=== PATIENT | male | born 1935 | race Caucasian/White ===

== ENCOUNTER 2018-02-28 16:18 | Emergency (ER) | payer OTHER ==
--- OUTSIDE RECORDS SUMMARY | 2018-02-28 16:20 | XMS REPORT ---
:1935 [facility] Address [address] [place] [address] [address] [place] [address] Care Team Providers Name Role Phone MICKI NGUYEN Primary Care Provider Unavailable MICKI NGUYEN Unavailable Unavailable Problems This patient has no known problems. Allergies, Adverse Reactions, Alerts This patient has no known allergies or adverse reactions. Medications This patient has no known medications. Encounters Start End Encounter Admission Attending Care Care Encounter Date/Time Date/Time Type Type Clinicians Facility Department ID 2018-02-14 2018-02-14 Outpatient C WENDY [facility] [id number] 19:50:00 19:50:00 MICKI Results Test Description Test Time Test Comments Text Results Atomic Results Result Comments Lipid Profile 2018-02-14 21:41:00 Test Item Value Reference Range Comments Cholesterol (test code=CHOL) 115 mg/dL 0-200 Triglycerides (test code=TRIG) 173 mg/dL 9-200 HDL (test code=HDL) 28 mg/dL 40-60 Chol/HDL (test code=CHOLPHDL) 4.1 Ratio 0.0-5.0 LDL, Calculated (test 52 0-130 (NOTE)RISK OF HEART DISEASEPublished code=LDLC) by Irish Heart AssociationAnalyte Optimal Boderline Increased RiskCHOL <200 200-239 >240TRIG <150 150-199 >200HDL Male: >60 <40HDL Female: >60 <50LDL <100 130-159 >160LDL NEAR OPTIMAL IS 100-129 VLDL (test code=VLDL) 35 mg/dL 5-40 LDL/HDL (test code=LDLPHDL) 2
--- NOTE | 2018-02-28 17:18 | RAD REPORT ---
EXAM DESCRIPTION: CT - Head C Spine Mpr Wo Con - 02/28/2018 5:03 pm CLINICAL HISTORY: Head and neck injury status post fall. Head and neck pain COMPARISON: 2013 TECHNIQUE: Computed axial tomography of the head and cervical spine was obtained. Sagittal and coronal reconstruction was performed. All CT scans are performed using dose optimization technique as appropriate and may include automated exposure control or mA/KV adjustment according to patient size. FINDINGS: An intracranial bleed is not seen. Cerebral atrophy is present. The ventricles are normal in caliber. An extra-axial fluid collection is not noted.Fluid within the visualized sinuses and mast oids is not seen A cervical fracture is not visualized. No dislocation is noted. An 8 millimeter lucency within the cl ivus is unchanged and likely is benign IMPRESSION: No acute intracranial abnormality is seen. A cervical fracture is not visualized. If the patient continues to have symptoms to suggest intracra nial /spinal cord pathology then MRI would be recommended
--- NOTE | 2018-02-28 17:21 | RAD REPORT ---
[facility]12 [facility] CLINICAL HISTORY: Chest pain COMPARISON: January 2018 FINDINGS: The lungs appear clear of acute infiltrate. The heart is mildly enlarged. Pacemaker lead is in place. A right humeral inter dislocation is present
--- NOTE | 2018-02-28 17:23 | RAD REPORT ---
EXAM DESCRIPTION: RAD - Pelvis - 02/28/2018 5:11 pm CLINICAL HISTORY: Pelvic pain status post injury FINDINGS: No fracture or dislocation is seen. The bones are osteoporotic. Left hip arthroplasty has been performed. The visualized femoral prosthes is is in good position. If the patient continues to have symptoms to suggest an occult fracture then CT would be recommended
[2018-02-28 17:25] LABS: Absolute Monocytes 0.6 K/uL (0.1-1.3); Absolute Neutrophil 3.9 K/uL (1.8-8.0); Basophils % 0.3 % (0-1.3); Eosinophils % 0.5 % (0-4.4); Hematocrit 28.5 % (39.6-49.0); Lymphocytes % 17.4 % (15.3-44.8); MCH 31.1 pg (27.0-35.0); MCV 93.5 fL (80-100); MPV 8.4 fL (7.6-11.3); Monocytes % 11.3 % (3.3-12.3); RBC Red Blood Cell Count 3.05 M/uL (4.33-5.43)
--- NOTE | 2018-02-28 17:29 | RAD REPORT ---
EXAM DESCRIPTION: RAD - Shoulder Right 2 View - 02/28/2018 5:21 pm CLINICAL HISTORY: Right shoulder pain status post fall FINDINGS: Anterior dislocation involves the right humeral head. No fracture is visualized
[2018-02-28 17:38] LABS: Protime INR 0.9
[2018-02-28 17:46] LABS: Bilirubin Direct 0.1 mg/dL (0-0.2); Potassium 4.4 mEq/L (3.6-5.0)
[2018-02-28] MEDS ORDERED: PROPOFOL 200 MG/20 ML VIAL IV ONE (17:52)
[2018-02-28 18:19] LABS: CKMB Creatine Kinase MB 2.8 ng/ml (0.3-4.0)
[2018-02-28 18:28] LABS: Albumin 3.2 g/dL (3.2-5.5); Bilirubin Total 0.5 mg/dL (0.3-1.2); Protein, Total 6.5 g/dL (6.0-8.3)
--- NOTE | 2018-02-28 18:36 | EDPHYS ---
Physician Documentation [facility] Name: Javier Ahuja Age: 82 yrs Sex: Male : 1935 Arrival Date: 02/28/2018 Time: 16:19 Bed 4 Private MD: ED Physician Mahesh Moss HPI: 02/28 17:15 This 82 yrs old Male presents to ER via EMS with complaints of Fall Injury, wa Shoulder Pain. 17:15 Details of fall: The patient fell from an upright position, while walking. Onset: The wa symptoms/episode began/occurred just prior to arrival. Associated injuries: The patient sustained fall. Severity of symptoms: At their worst the symptoms were moderate, in the emergency department the symptoms are unchanged. The patient has not experienced similar symptoms in the past. The patient has not recently seen a physician. Historical: - Allergies: 16:44 PENICILLINS; ph 16:44 Sulfa (Sulfonamide Antibiotics); ph 16:44 Tramadol HCl; ph - Home Meds: 16:44 midodrine 5 mg oral tab 1 tabs 3 times per day [Active]; pantoprazole 40 mg oral TbEC 1 ph tab 2 times per day [Active]; lovastatin 40 mg Oral tab 1 tab once daily [Active]; Plavix 75 mg Oral tab 1 tab once daily [Active]; losartan 100 mg oral tab 1 tab once daily [Active]; nitroglycerin 0.4 mg SL subl 1 tab every 5 minutes [Active]; metoprolol tartrate 50 mg Oral tab 1 tab 2 times per day [Active]; isosorbide mononitrate 30 mg Oral Tb24 1 tab once daily [Active]; aspirin 81 mg Oral TbEC 1 tab once daily [Active]; Vitamin C 1,000 mg Oral tab [Active]; B-12 DOTS oral 1000 mcg oral [Active]; docusate sodium 100 mg Oral cap [Active]; Fusion Plus 130 mg iron -1,250 mcg oral cap [Active]; - PMHx: 16:44 COPD; Hypertension; Myocardial infarction; Orthostatic Hypotension; ph - PSHx: 16: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 - Social history:: Patient/guardian denies using alcohol, street drugs, IV drugs, Smoking status: Patient/guardian denies using tobacco. - Family history:: not pertinent. - Hospitalizations: : No recent hospitalization is reported. ROS: 17:17 Constitutional: Negative for fever, chills, and weight loss, Eyes: Negative for injury, wa pain, redness, and discharge, ENT: Negative for injury, pain, and discharge, Neck: Negative for injury, pain, and swelling, Cardiovascular: Negative for chest pain, palpitations, and edema, Respiratory: Negative for shortness of breath, cough, wheezing, and pleuritic chest pain, Abdomen/GI: Negative for abdominal pain, nausea, vomiting, diarrhea, and constipation, Back: Negative for injury and pain, : Negative for injury, bleeding, discharge, and swelling, Neuro: Negative for headache, weakness, numbness, tingling, and seizure, Psych: Negative for depression, anxiety, suicide ideation, homicidal ideation, and hallucinations. 17:17 MS/extremity: Positive for deformity, of the Right shoulder. 17:17 Skin: Positive for laceration(s), of the right roman catholic. Exam: 17:19 Constitutional: This is a well developed, well nourished patient who is awake, alert, wa and in no acute distress. Eyes: Pupils equal round and reactive to light, extra-ocular motions intact. Lids and lashes normal. Conjunctiva and sclera are non-icteric and not injected. Cornea within normal limits. Periorbital areas with no swelling, redness, or edema. ENT: Nares patent. No nasal discharge, no septal abnormalities noted. Tympanic membranes are normal and external auditory canals are clear. Oropharynx with no redness, swelling, or masses, exudates, or evidence of obstruction, uvula midline. Mucous membranes moist. Neck: Trachea midline, no thyromegaly or masses palpated, and no cervical lymphadenopathy. Supple, full range of motion without nuchal rigidity, or vertebral point tenderness. No Meningismus. Cardiovascular: Regular rate and rhythm with a normal S1 and S2. No gallops, murmurs, or rubs. Normal PMI, no JVD. No pulse deficits. Respiratory: Lungs have equal breath sounds bilaterally, clear to auscultation and percussion. No rales, rhonchi or wheezes noted. No increased work of breathing, no retractions or nasal flaring. Abdomen/GI: Soft, non-tender, with normal bowel sounds. No distension or tympany. No guarding or rebound. No evidence of tenderness throughout. Back: No spinal tenderness. No costovertebral tenderness. Full range of motion. Neuro: Awake and alert, GCS 15, oriented to person, place, time, and situation. Cranial nerves II-XII grossly intact. Motor strength 5/5 in all extremities. Sensory grossly intact. Cerebellar exam normal. Normal gait. 17:19 Head/face: Noted is a laceration(s), that is superficial, 0.2 cm(s), of the right roman catholic. 17:19 Musculoskeletal/extremity: Extremities: grossly normal except: noted R shoulder deformity consistent with anterior dislocation. Vital Signs: 16:26 BP 187 / 92; Pulse 73; Resp 18; Temp 98.1; Pulse Ox 95% on R/A; ph 17:45 BP 173 / 80; Pulse 72; Resp 16; Pulse Ox 99% on R/A; ph 18:11 BP 134 / 70; Pulse 69; Resp 20; Pulse Ox 100% on 100% Non-rebreather mask; ph 19:10 BP 150 / 86; Pulse 76; Resp 18; Temp 97.8; Pulse Ox 99% on R/A; ph 19:37 BP 161 / 90; Pulse 85; Resp 20; Pulse Ox 95% on R/A; tl2 [place] Coma Score: 16:26 Eye Response: spontaneous(4). Verbal Response: oriented(5). Motor Response: obeys ph commands(6). Total: 15. 17:45 Eye Response: spontaneous(4). Verbal Response: oriented(5). Motor Response: obeys ph commands(6). Total: 15. 18:11 Eye Response: spontaneous(4). Verbal Response: oriented(5). Motor Response: obeys ph commands(6). Total: 15. 19:10 Eye Response: spontaneous(4). Verbal Response: oriented(5). Motor Response: obeys ph commands(6). Total: 15. 19:37 Eye Response: spontaneous(4). Verbal Response: oriented(5). Motor Response: obeys tl2 commands(6). Total: 15. Trauma Score (Adult): 16:26 Eye Response: spontaneous(1); Verbal Response: oriented(1); Motor Response: obeys ph commands(2); Systolic BP: > 89 mm Hg(4); Respiratory Rate: 10 to 29 per min(4); [place] Score: 15; Trauma Score: 12 17:45 Eye Response: spontaneous(1); Verbal Response: oriented(1); Motor Response: obeys ph commands(2); Systolic BP: > 89 mm Hg(4); Respiratory Rate: 10 to 29 per min(4); [place] Score: 15; Trauma Score: 12 18:11 Eye Response: spontaneous(1); Verbal Response: oriented(1); Motor Response: obeys ph commands(2); Systolic BP: > 89 mm Hg(4); Respiratory Rate: 10 to 29 per min(4); [place] Score: 15; Trauma Score: 12 19:10 Eye Response: spontaneous(1); Verbal Response: oriented(1); Motor Response: obeys ph commands(2); Systolic BP: > 89 mm Hg(4); Respiratory Rate: 10 to 29 per min(4); [place] Score: 15; Trauma Score: 12 19:37 Eye Response: spontaneous(1); Verbal Response: oriented(1); Motor Response: obeys tl2 commands(2); Systolic BP: > 89 mm Hg(4); Respiratory Rate: 10 to 29 per min(4); [place] Score: 15; Trauma Score: 12 Procedures: 18:13 Reduction: of the right shoulder, using traction, traction-counter traction, wa Immobilized with sling, Patient tolerated well. Post reduction film - reveals normal alignment. Moderate sedation: Pre-procedure assessment: the patient has been NPO 4 hour(s) prior to arrival, ASA physical classification: III - organic disease with definite functional impairment, Airway assessment: able to hyperextend neck, Mallampati classification of tongue size: II - faucial pillars and soft palate can be visualized, but uvula is masked by the base of the tongue, Monitoring during procedure: academic support center director, continuous pulse oximetry, nurse at bedside at all times, high flow via NBM for 10 minutes prior to procedure, Medications employed: propofol bolus, Post-procedure assessment: the patient is moderately sedated, Respiratory status: even and unlabored, a reversal agent was not used. MDM: 16:29 Patient medically screened. wa 18:28 Differential diagnosis: obvious R shoulder dislocation. r/o acute ICH. r/o c-spine fx. wa . Data reviewed: vital signs, nurses notes, lab test result(s), EKG, radiologic studies. Test interpretation: by ED physician or midlevel provider: EKG: HR 69. LAD. incomplete RBBB. . 18:32 Test interpretation: by ED physician or midlevel provider: labs noted for BUN 30. wa elevated BNP 564. anemia 9.5/28.5. 18:32 Test interpretation: by ED physician or midlevel provider: pelvic xray: no fx. CXR: no wa acute process. head and c-spine: no acute process. 18:33 Test interpretation: by ED physician or midlevel provider: R shoulder post-reduction: oh adequate reduction. Response to treatment: the patient's symptoms have markedly improved after treatment. 02/28 16:35 Order name: Basic Metabolic Panel; Complete Time: 18:30 02/28 16:35 Order name: CBC with Diff; Complete Time: 17:36 02/28 16:36 Order name: BNP; Complete Time: 18:31 02/28 16:36 Order name: CPK; Complete Time: 18:31 02/28 16:36 Order name: LFT's; Complete Time: 18:31 02/28 16:36 Order name: Magnesium; Complete Time: 18:31 02/28 16:35 Order name: XRAY Chest (1 view); Complete Time: 17:36 02/28 16:36 Order name: PT-INR; Complete Time: 18:31 02/28 16:36 Order name: Troponin (emerg Dept Use Only); Complete Time: 18:31 02/28 17:14 Order name: Amylase, Serum; Complete Time: 18:31 02/28 17:14 Order name: Ckmb; Complete Time: 18:31 02/28 17:14 Order name: Lipase; Complete Time: 18:31 02/28 17:31 Order name: PTT, Activated Partial Thromb; Complete Time: 18:30 EDMS 02/28 16:35 Order name: XRAY Pelvis; Complete Time: 17:36 02/28 16:35 Order name: CT Head C Spine; Complete Time: 17:36 02/28 16:35 Order name: Labs collected and sent; Complete Time: 17:28 02/28 16:35 Order name: Urine Dipstick-Ancillary (obtain specimen); Complete Time: 17:02/28 16:36 Order name: EKG; Complete Time: 16:37 02/28 16:36 Order name: Cardiac monitoring; Complete Time: 17:02/28 16:36 Order name: EKG - Nurse/Tech; Complete Time: 19:29 02/28 16:36 Order name: IV Saline Lock; Complete Time: 17:02/28 16:36 Order name: O2 Per Protocol; Complete Time: 17:02/28 16:36 Order name: O2 Sat Monitoring; Complete Time: 17:02/28 17:14 Order name: Shoulder Right (2 View) XRAY; Complete Time: 17:36 02/28 17:14 Order name: NPO; Complete Time: 17:02/28 18:12 Order name: Shoulder (1 View) XRAY oh Administered Medications: 18:04 Drug: Propofol 80 mg {Note: administered by Dr Moss.} Route: IVP; Site: left ph antecubital; 19:00 Follow up: Response: No adverse reaction ph Disposition: 02/28/18 18:36 Discharged to Home. Impression: Acute Traumatic Right Shoulder anterior dislocation, fall. - Condition is Stable. - Discharge Instructions: Shoulder Dislocation, [id number]. - Medication Reconciliation Form, Thank You Letter, Antibiotic Education, Prescription Opioid Use form. - Follow up: Private Physician; When: your orthopedist. - Problem is new. - Symptoms have improved. - Notes: follow up with your orthopedist for further evaluation of your right shoulder. wear sling until evaluated by your doctor. take tylenol for pain as needed Signatures: Dispatcher [employer] EDSharda Zabala, RN RN Nasrin Camarillo RN RN tl2 Mahesh Moss MD MD oh Corrections: (The following items were deleted from the chart) 17:33 17:15 PTT, ACTIVATED+COAG.LAB.BRZ ordered. EDWV CHRISWV
--- NOTE | 2018-02-28 18:36 | ER ---
Nurse's Notes [facility] Name: Javier Ahuja Age: 82 yrs Sex: Male : 1935 Arrival Date: 02/28/2018 Time: 16:19 Bed 4 Private MD: Diagnosis: Acute Traumatic Right Shoulder anterior dislocation;fall Presentation: 02/28 16:21 Presenting complaint: EMS states: Pt was walking across kitchen and slipped and fell, ph denies LOC, c/o pain in R shoulder, abrasion noted to R elbow w/ obvious R shoulder deformity, small abrasion also noted to R side of forehead, denies dizziness or nausea, pt does take Plavix, 50 Fentanyl IVP administered at 1545. Care prior to arrival: Medication(s) given: Fentanyl 50 mcg IVP IV initiated. 18 GA, in the left antecubital area. Mechanism of Injury: Fall from standing position. Trauma event details: Injury occurred in the [facility], Injury occurred: at home. Injury occurred: February 28, 2018. 16:21 Acuity: CYNDIE 3 ph 16:21 Method Of Arrival: EMS: [facility] ph 17:33 Transition of care: patient was not received from another setting of care. Onset of ph symptoms was February 28, 2018. Trauma Activation: Alert Physician: ED Physician; Name: ; Notified At: ; Arrived At: Physician: General Surgeon; Name: ; Notified At: ; Arrived At: Physician: Radiology; Name: ; Notified At: ; Arrived At: Physician: Respiratory; Name: ; Notified At: ; Arrived At: Physician: Lab; Name: ; Notified At: ; Arrived At: Historical: - Allergies: 16:44 PENICILLINS; ph 16:44 Sulfa (Sulfonamide Antibiotics); ph 16:44 Tramadol HCl; ph - Home Meds: 16:44 midodrine 5 mg oral tab 1 tabs 3 times per day [Active]; pantoprazole 40 mg oral TbEC 1 ph tab 2 times per day [Active]; lovastatin 40 mg Oral tab 1 tab once daily [Active]; Plavix 75 mg Oral tab 1 tab once daily [Active]; losartan 100 mg oral tab 1 tab once daily [Active]; nitroglycerin 0.4 mg SL subl 1 tab every 5 minutes [Active]; metoprolol tartrate 50 mg Oral tab 1 tab 2 times per day [Active]; isosorbide mononitrate 30 mg Oral Tb24 1 tab once daily [Active]; aspirin 81 mg Oral TbEC 1 tab once daily [Active]; Vitamin C 1,000 mg Oral tab [Active]; B-12 DOTS oral 1000 mcg oral [Active]; docusate sodium 100 mg Oral cap [Active]; Fusion Plus 130 mg iron -1,250 mcg oral cap [Active]; - PMHx: 16:44 COPD; Hypertension; Myocardial infarction; Orthostatic Hypotension; ph - PSHx: 16: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 - Social history:: Patient/guardian denies using alcohol, street drugs, IV drugs, Smoking status: Patient/guardian denies using tobacco. - Family history:: not pertinent. - Hospitalizations: : No recent hospitalization is reported. Screenin:53 Abuse screen: Denies threats or abuse. Denies injuries from another. ph 17:31 Nutritional screening: No deficits noted. Tuberculosis screening: No symptoms or risk ph factors identified. Fall Risk Fall in past 12 months (25 points). IV access (20 points). Ambulatory Aid- None/Bed Rest/Nurse Assist (0 pts). Gait- Weak (10 pts.). Mental Status- Oriented to own ability (0 pts). Total Jimenez Fall Scale indicates High Risk Score (45 or more points). Fall prevention measures have been instituted. Side Rails Up X 2 Placed Close to Nursing Station Frequent Obs/Assessments Occuring Family Present and informed to notify staff if the need to leave the bedside As available patient and family educated on Fall Prevention Program and Strategies. Primary Survey: 16:45 A: Airway:. Breathing/Chest: Respiratory pattern: regular, Respiratory effort: ph spontaneous, unlabored, Breath sounds: clear, bilaterally. Circulation: Skin color: pink, Skin temperature: warm, dry. Disability Alert. 18:13 Reassessment Breathing/Chest Respiratory pattern Regular Respiratory effort Spontaneous ph Unlabored. Secondary Survey: 16:49 HEENT: Head Other abrasion noted to R side of forehead. Gastrointestinal: No deficits ph noted. Musculoskeletal: Bony deformity noted of anterior aspect of right shoulder. Assessment: 16:30 General: Appears in no apparent distress. comfortable, Behavior is calm, cooperative, ph appropriate for age. 16:30 Pain: Complains of pain in anterior aspect of right shoulder and posterior aspect of ph right shoulder. Neuro: Level of Consciousness is awake, alert, obeys commands, Oriented to person, place, time, situation. Cardiovascular: Denies chest pain, lightheadedness, shortness of breath, Capillary refill < 3 seconds Patient's skin is warm and dry. Respiratory: Airway is patent Respiratory effort is even, unlabored, Respiratory pattern is regular, symmetrical. Derm: Skin is fragile, is thin, Skin is pink, warm \T\ dry. Musculoskeletal: Circulation, motion, and sensation intact. Range of motion: limited in right shoulder. Injury Description: Abrasion sustained to right christian and right elbow. 18:00 Reassessment: Patient appears in no apparent distress at this time. Patient and/or ph family updated on plan of care and expected duration. Pain level reassessed. ERP at bedside to reduce dislocated R shoulder, consent form signed by spouse. 19:37 Reassessment: Patient appears in no apparent distress at this time. Patient and/or tl2 family updated on plan of care and expected duration. Pain level reassessed. Patient is alert, oriented x 3, equal unlabored respirations, skin warm/dry/pink. Pt and family verbalized understanding of discharge instructions, need for follow up and sling care. Vital Signs: 16:26 BP 187 / 92; Pulse 73; Resp 18; Temp 98.1; Pulse Ox 95% on R/A; ph 17:45 BP 173 / 80; Pulse 72; Resp 16; Pulse Ox 99% on R/A; ph 18:11 BP 134 / 70; Pulse 69; Resp 20; Pulse Ox 100% on 100% Non-rebreather mask; ph 19:10 BP 150 / 86; Pulse 76; Resp 18; Temp 97.8; Pulse Ox 99% on R/A; ph 19:37 BP 161 / 90; Pulse 85; Resp 20; Pulse Ox 95% on R/A; tl2 [place] Coma Score: 16:26 Eye Response: spontaneous(4). Verbal Response: oriented(5). Motor Response: obeys ph commands(6). Total: 15. 17:45 Eye Response: spontaneous(4). Verbal Response: oriented(5). Motor Response: obeys ph commands(6). Total: 15. 18:11 Eye Response: spontaneous(4). Verbal Response: oriented(5). Motor Response: obeys ph commands(6). Total: 15. 19:10 Eye Response: spontaneous(4). Verbal Response: oriented(5). Motor Response: obeys ph commands(6). Total: 15. 19:37 Eye Response: spontaneous(4). Verbal Response: oriented(5). Motor Response: obeys tl2 commands(6). Total: 15. Trauma Score (Adult): 16:26 Eye Response: spontaneous(1); Verbal Response: oriented(1); Motor Response: obeys ph commands(2); Systolic BP: > 89 mm Hg(4); Respiratory Rate: 10 to 29 per min(4); [place] Score: 15; Trauma Score: 12 17:45 Eye Response: spontaneous(1); Verbal Response: oriented(1); Motor Response: obeys ph commands(2); Systolic BP: > 89 mm Hg(4); Respiratory Rate: 10 to 29 per min(4); [place] Score: 15; Trauma Score: 12 18:11 Eye Response: spontaneous(1); Verbal Response: oriented(1); Motor Response: obeys ph commands(2); Systolic BP: > 89 mm Hg(4); Respiratory Rate: 10 to 29 per min(4); [place] Score: 15; Trauma Score: 12 19:10 Eye Response: spontaneous(1); Verbal Response: oriented(1); Motor Response: obeys ph commands(2); Systolic BP: > 89 mm Hg(4); Respiratory Rate: 10 to 29 per min(4); [place] Score: 15; Trauma Score: 12 19:37 Eye Response: spontaneous(1); Verbal Response: oriented(1); Motor Response: obeys tl2 commands(2); Systolic BP: > 89 mm Hg(4); Respiratory Rate: 10 to 29 per min(4); [place] Score: 15; Trauma Score: 12 ED Course: 16:19 Patient arrived in ED. ph 16:25 Triage completed. ph 16:29 Mahesh Moss MD is Attending Physician. wa 16:47 Sharda Chapa, CHLOÉ is Primary Nurse. ph 17:04 CT Head C Spine In Process Unspecified. EDMS 17:09 X-ray completed. Patient tolerated procedure well. ml 17:09 Patient moved back from radiology. ml 17:09 XRAY Chest (1 view) In Process Unspecified. EDMS 17:09 XRAY Pelvis In Process Unspecified. EDMS 17:21 Shoulder Right (2 View) XRAY In Process Unspecified. EDMS 17:30 Maintain EMS IV. Dressing intact. Good blood return noted. Site clean \T\ dry. Gauge \T\ ph site: 18 G LAC. Patient maintains SpO2 saturation greater than 95% on room air. 17:31 Patient has correct armband on for positive identification. Placed in gown. Bed in low ph position. Call light in reach. Pulse ox on. NIBP on. Warm blanket given. 17:32 Thermoregulation: warm blanket given to patient. ph 18:11 Arm band placed on. ph 18:12 Assist provider with reduction of right shoulder using traction, Set up for procedure. ph Performed by Mahesh Moss MD Immobilized with sling, Patient tolerated well. 18:21 X-ray completed. Portable x-ray completed in exam room. Patient tolerated procedure bb2 well. 18:21 Shoulder (1 View) XRAY In Process Unspecified. EDMS 19:37 IV discontinued, intact, bleeding controlled, No redness/swelling at site. Pressure tl2 dressing applied. Administered Medications: 18:04 Drug: Propofol 80 mg {Note: administered by Dr Moss.} Route: IVP; Site: left ph antecubital; 19:00 Follow up: Response: No adverse reaction ph Intake: 16:26 PO: 0ml; Total: 0ml. ph Output: 16:26 Urine: 0ml; Total: 0ml. ph Outcome: 18:36 Discharge ordered by . viola 19:29 Patient's length of stay was not longer than 2 hours. ph 19:37 Discharged to home via wheelchair, with family. tl2 19:37 Condition: stable 19:37 Discharge instructions given to patient, family, Instructed on discharge instructions, follow up and referral plans. Demonstrated understanding of instructions, follow-up care. 19:39 Patient left the ED. tl2 Signatures: Dispatcher [employer] EDGreta Hoffman Patricia, RN RN ph Nasrin Camarillo RN RN tl2 Mahesh Moss MD MD wa Bock, Brittany bb2 Corrections: (The following items were deleted from the chart) 16:30 16:21 Presenting complaint: EMS states: Pt was walking across kitchen and slipped and ph fell, denies LOC, c/o pain in R shoulder, abrasion noted to R elbow w/ obvious R shoulder deformity, small abrasion also noted to R side of forehead, denies dizziness or nausea, also denies use of blood thinners, 50 Fentanyl IVP administered at 1545 ph 17:40 17:34 General: Appears in no apparent distress. comfortable, ph ph 18:10 16:26 Pulse 73bpm; Resp 18bpm; Pulse Ox 95% RA; Temp 98.1F; ph ph
--- NOTE | 2018-02-28 19:27 | RAD REPORT ---
EXAM DESCRIPTION: RAD - Shoulder 1 View - 02/28/2018 6:22 pm FINDINGS: Single internal rotation view obtained labeled post reduction. Humeral head has been reduced to anatomic position. Hardware is in place from prior surgery. AC joint and acromion degenerative change again noted.
[2018-02-28 19:47] VITALS: TEMP 97.8
[2018-02-28 19:48] VITALS: BP 161/90; O2SAT 95
--- NOTE | 2018-03-03 22:48 | EKG ---
Test Date: 2018-02-28 Test Time: 17:35:16 Learning Services Coordinator: ADEN MEASUREMENT RESULTS: Intervals: Rate: 69 MD: 158 QRSD: 108 QT: 396 QTc: 424 [place]: P: 64 MD: 158 QRS: -38 T: 66 INTERPRETIVE STATEMENTS: Normal sinus rhythm Left axis deviation Intraventricular conduction delay Abnormal ECG Compared to ECG 02/06/2018 00:40:07 Left-axis deviation now present Atrial premature complex(es) no longer present Electronically Signed On 03-03-18 22:48:11 CDT by Antwan Chambers
== END 2018-02-28 19:39 | disposition home or self-care (01) ==
LOC: ER 16:18
PROC: 0RSJXZZ Reposition Right Shoulder Joint, External Approach (ICD-10-PCS; principal; 2018-02-28)
DX: S43.084A Other dislocation of right shoulder joint, initial encounter (principal); W19.XXXA Unspecified fall, initial encounter; Y93.01 Activity, walking, marching and hiking; I10 Essential (primary) hypertension; J44.9 Chronic obstructive pulmonary disease, unspecified; I25.2 Old myocardial infarction; Z95.1 Presence of aortocoronary bypass graft; Z95.0 Presence of cardiac pacemaker; Z88.0 Allergy status to penicillin; Z88.2 Allergy status to sulfonamides; Z88.5 Allergy status to narcotic agent; Z79.01 Long term (current) use of anticoagulants
CPT/HCPCS: 36415; 70450; 71045; 72125; 72170; 73020; 80048; 80076; 82150; 82550; 82553; 83690; 83735; 83880; 84484; 85025; 85610; 85730; 93005; 96374; 99285

== ENCOUNTER 2018-03-01 15:23 | Emergency (ER) | payer OTHER ==
--- OUTSIDE RECORDS SUMMARY | 2018-03-01 15:26 | XMS REPORT ---
:1935 [facility] Address [address] [place] [address] [address] [place] [address] Care Team Providers Name Role Phone MICKI [...] Department ID 2018-02-14 2018-02-14 Outpatient [facility] [id number] 19:50:00 19:50:00 MICKI Results Test Description Test Time Test Comments Text Results Atomic Results Result Comments Lipid Profile 2018-02-14 21:41:00 Test Item Value Reference Range Comments Cholesterol (test code=CHOL) 115 mg/dL 0-200 Triglycerides (test code=TRIG) 173 mg/dL 9-200 HDL (test code=HDL) 28 mg/dL 40-60 Chol/HDL (test code=CHOLPHDL) 4.1 Ratio 0.0-5.0 LDL, Calculated (test 52 0-130 (NOTE)RISK OF HEART DISEASEPublished code=LDLC) by [place] Heart AssociationAnalyte Optimal Boderline Increased RiskCHOL <200 200-239 >240TRIG <150 150-199 >200HDL Male: >60 <40HDL Female: >60 <50LDL <100 130-159 >160LDL NEAR OPTIMAL IS 100-129 VLDL (test code=VLDL) 35 mg/dL 5-40 LDL/HDL (test code=LDLPHDL) 2
[2018-03-01] MEDS ORDERED: FENTANYL CITR 100 MCG/2 ML ONE (15:53)
--- NOTE | 2018-03-01 16:19 | RAD REPORT ---
EXAM DESCRIPTION: RAD - Chest Single View - 03/01/2018 3:54 pm CLINICAL HISTORY: Fall COMPARISON: February 28 TECHNIQUE: AP portable chest image was obtained 1534 hours . 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 No pulmonary contusion. No pneumothorax see n. Trachea is midline. Pacemaker is in place. Heart and vasculature are normal. No pleural fluid lisset ection. No acute bone findings seen. Postsurgical changes are present to the right humerus. Bones are osteopenic. No acute aortic findings suspected. IMPRESSION: Fibrotic lung pattern with no pulmonary contusion or pneumothorax. No acute bone findings seen. Rib detail can be better assessed with directed imaging.
[2018-03-01 16:21] LABS: Absolute Lymphocytes (CBC) 1.1 K/uL (0.7-4.9); Absolute Neutrophil 4.8 K/uL (1.8-8.0); Basophils % 0.3 % (0-1.3); Eosinophils % 0.3 % (0-4.4); Hematocrit 28.6 % (39.6-49.0); Lymphocytes % 16.4 % (15.3-44.8); MCV 93.8 fL (80-100); MPV 8.4 fL (7.6-11.3); Monocytes % 14.1 % (3.3-12.3); RBC Red Blood Cell Count 3.05 M/uL (4.33-5.43)
--- NOTE | 2018-03-01 16:21 | RAD REPORT ---
EXAM DESCRIPTION: RAD - Pelvis - 03/01/2018 3:54 pm CLINICAL HISTORY: Fall, pelvic pain COMPARISON: February 28 TECHNIQUE: AP imaging of the pelvis was obtained. FINDINGS: No acute fracture change. Lower lumbar, SI joint and pubic symphysis degenerative changes are noted in stable. Old trauma changes seen to the left ischium. Left femoral prosthesis is in place . No dislocation. No acute proximal femur finding. IMPRESSION: No fracture or acute finding. No significant change from prior day imaging.
[2018-03-01 16:30] LABS: Potassium 4.1 mEq/L (3.6-5.0)
[2018-03-01 16:31] LABS: Glomerular Filtration Rate > 60 mL/min (>60)
--- NOTE | 2018-03-01 16:33 | RAD REPORT ---
EXAM DESCRIPTION: CT - [id number] - 03/01/2018 4:10 pm CLINICAL HISTORY: Fall, head and neck injury COMPARISON: CT head and cervical February 28 ; CT head and cervical May 2014 TECHNIQUE: Axial 5 mm thick images of the head were obtained. Axial 2 mm thick images of the cervic al spine were obtained with sagittal and coronal reconstruction images generated and reviewed. All CT scans are performed using dose optimization technique as appropriate and may include automated exposure control or mA/KV adjustment according to patient size. FINDINGS: No intracranial hemorrhage, mass, edema or acute intracranial finding. No acute cortical b ased infarction. Moderate severity atrophy and chronic ischemic changes are present. Ventricular size is in proportion to the amount of volume loss. No extra-axial fluid collections. Mastoid air cells a nd paranasal sinuses are clear. No globe or orbit abnormality seen. Cervical bodies are normal in height except for partial compression of C6 is stable back to at least 2013. No fracture or acute bone finding. No new finding in the cervical spine since the prior day gerardo dy. Central canal detail is inherently limited. Asymmetric soft tissues are seen in the right apex base the neck region. There is a right neck base l ymph node 15 mm in short axis dimension. Bullous is potentially traumatic in etiology, this is an unu sual place for muscle or soft tissue injury, and a soft tissue traumatic injury would generally not h ave an associated prominent lymph node. A neoplastic process is a consideration. IMPRESSION: Apical soft tissue pleural thickening extending into the right base of the neck. There i s an adjacent lymph node with a 15 mm short axis dimension. While trauma etiology is possible, findin gs do raise concern for neoplastic process. Atrophy and chronic ischemic changes are present with no acute intracranial finding. Cervical spine degenerative change without an acute process. C6 compression fracture dates back to at least 2013.
[2018-03-01 16:42] LABS: Protime INR 0.96
--- NOTE | 2018-03-01 16:46 | RAD REPORT ---
EXAM DESCRIPTION: RAD - Hip Left 2 View - 03/01/2018 4:39 pm CLINICAL HISTORY: Fall, hip pain COMPARISON: None. FINDINGS: AP and cross-table lateral views obtained. Bipolar prosthesis in place. No dislocation of the implant. No radiographic evidence for loosening o f the implant. No fracture or acute process of the left hemipelvis. Surgical clips are noted. Degener ative changes remain at the hip joint, SI joint and pubic symphysis. No significant soft tissue abnormality seen. IMPRESSION: Left bipolar prosthesis in place. No acute bone, joint or implant finding.
--- NOTE | 2018-03-01 16:48 | RAD REPORT ---
EXAM DESCRIPTION: Shoulder Right 2 View - 03/01/2018 4:39 pm CLINICAL HISTORY: Dislocation COMPARISON: February 28 TECHNIQUE: AP and scapula Y-views obtained. FINDINGS: The dislocation has been reduced anatomic positioning. No fracture or acute bone finding. AC joint and acromion degenerative changes are present. IMPRESSION: Anterior dislocation has been reduced.
--- NOTE | 2018-03-01 17:40 | ER ---
Nurse's Notes [facility] Name: Javier Ahuja Age: 82 yrs Sex: Male : 1935 Arrival Date: 03/01/2018 Time: 15:22 Bed 6 Private MD: Diagnosis: Superficial injury of head;Abrasion of left elbow;Contusion of left hip;Sprain of ligaments of cervical spine;right neck mass Presentation: 03/01 15:15 Presenting complaint: EMS states: fall from standing position, alicia of wind blew and pt sv fell on concrete, hitting the left face. Abrasion to the left elbow. A\T\ O 2-3 per family. Pt on site stated LOC on arrival to ER pt stated +LOC. BP 113/58 HR 70-80s 97% RA. 15:15 Mechanism of Injury: Fall from standing position. Trauma event details: Injury occurred sv in the [facility], Injury occurred: in a public building. Injury occurred: March 01, 2018 Injury occurred at: 14:30. 15:39 Transition of care: patient was received from another setting of care (ambulatory sv specialty care practice), GI center. Onset of symptoms was March 01, 2018. Care prior to arrival: Placed on backboard. 15:39 Method Of Arrival: EMS: [facility] sv 15:39 Acuity: CYNDIE 2 sv Triage Assessment: 16:35 General: Appears in no apparent distress. Behavior is calm. iw Trauma Activation: Alert Physician: ED Physician; Name: Dr Moss; Notified At: 15:25; Arrived At: 15:25 Physician: General Surgeon; Name: ; Notified At: 15:25; Arrived At: Physician: Radiology; Name: Kiko Simons; Notified At: 15:25; Arrived At: 15:25 Physician: Respiratory; Name: ; Notified At: 15:25; Arrived At: Physician: Lab; Name: ; Notified At: 15:25; Arrived At: Historical: - Allergies: 15:42 PENICILLINS; sv 15:42 Sulfa (Sulfonamide Antibiotics); sv 15:42 Tramadol HCl; sv 15:42 Demerol; sv - PMHx: 15:42 COPD; Hypertension; Myocardial infarction; Orthostatic hypotension; sv - PSHx: 15:42 CABG; pacemaker; rotator cuff; sv - Immunization history:: Adult Immunizations unknown. - Immunization history: Last tetanus immunization: unknown. - Social history:: Smoking status: Patient/guardian denies using tobacco. Screenin:44 Abuse screen: Denies threats or abuse. Denies injuries from another. Nutritional sv screening: No deficits noted. Tuberculosis screening: No symptoms or risk factors identified. Fall Risk Fall in past 12 months (25 points). No secondary diagnosis (0 pts). No IV (0 pts). Ambulatory Aid- None/Bed Rest/Nurse Assist (0 pts). Gait- Normal/Bed Rest/Wheelchair (0 pts) Mental Status- Overestimates/Forgets Limitations (15 pts.). Total Jimenez Fall Scale indicates High Risk Score (45 or more points). Fall prevention measures have been instituted. Side Rails Up X 2 Placed Close to Nursing Station Frequent Obs/Assessments Occuring Family Present and informed to notify staff if the need to leave the bedside As available patient and family educated on Fall Prevention Program and Strategies. Primary Survey: 15:25 A: Airway: patent, No supplemental oxygen in use on arrival. Oral cavity: clear, iw Trachea midline. Breathing/Chest: Respiratory pattern: regular, Respiratory effort: spontaneous, unlabored, Breath sounds: clear, bilaterally. Chest inspection: symmetrical rise and fall of the chest. Circulation: Heart tones present. Pulses: palpable right radial artery, right dorsalis pedis artery, left radial artery and left dorsalis pedis artery. Skin color: pink, Skin temperature: dry, cool. Disability Alert. 16:06 Reassessment Airway Airway Patent Oxygen No O2 Oral cavity Clear Breathing/Chest iw Respiratory pattern Regular Respiratory effort Spontaneous Unlabored Breath sounds Clear Chest inspection Symmetrical Circulation Heart tones Present Pulses Palpable Color [place] Disability Alert. Secondary Survey: 15:25 HEENT: Head Other Pt has purple bruising noted to left eye. Face No injury/deformity iw Eyes: No injury or deformity noted. Ears: clear Nose: clear Throat: No injury or deformity noted. Gastrointestinal: No deficits noted. : No deficits noted. Musculoskeletal: Range of motion: limited in right shoulder pt had shoulder dislocated yesterday and was seen here. Denies pain in, right arm, left arm, right leg and left leg. Musculoskeletal: Reports pain in anterior aspect of left upper chest and left breast. Injury Description: Skin tears sustained to left elbow. Assessment: 16:30 Reassessment: Pt currently in CT, unable to do vitals. sv Vital Signs: 15:23 BP 132 / 65; Pulse 73; Resp 18; Temp 98.4(O); Pulse Ox 96% on R/A; dh3 16:47 BP 146 / 69; Pulse 68; Resp 17; Temp 98.2(O); Pulse Ox 98% on R/A; dh3 17:50 BP 129 / 77; Pulse 68; Resp 18; Temp 98.7; Pulse Ox 99% ; sv [place] Coma Score: 15:15 Eye Response: spontaneous(4). Verbal Response: confused(4). Motor Response: obeys sv commands(6). Total: 14. 16:47 Eye Response: spontaneous(4). Verbal Response: confused(4). Motor Response: obeys sv commands(6). Total: 14. 18:05 Eye Response: spontaneous(4). Verbal Response: confused(4). Motor Response: obeys sv commands(6). Total: 14. Trauma Score (Adult): 15:15 Eye Response: spontaneous(1); Verbal Response: confused(1); Motor Response: obeys sv commands(2); Systolic BP: > 89 mm Hg(4); Respiratory Rate: 10 to 29 per min(4); [place] Score: 14; Trauma Score: 12 16:47 Eye Response: spontaneous(1); Verbal Response: confused(1); Motor Response: obeys sv commands(2); Systolic BP: > 89 mm Hg(4); Respiratory Rate: 10 to 29 per min(4); [place] Score: 14; Trauma Score: 12 18:05 Eye Response: spontaneous(1); Verbal Response: confused(1); Motor Response: obeys sv commands(2); Systolic BP: > 89 mm Hg(4); Respiratory Rate: 10 to 29 per min(4); [place] Score: 14; Trauma Score: 12 ED Course: 15:22 Patient arrived in ED. sv 15:23 Jessica Campos NP is PHCP. rh1 15:23 Mahesh Moss MD is Attending Physician. rh1 15:40 Triage completed. sv 15:42 Patient maintains SpO2 saturation greater than 95% on room air. sv 15:43 Thermoregulation: warm blanket given to patient. sv 15:43 Arm band placed on right wrist. sv 15:43 Patient has correct armband on for positive identification. Placed in gown. Bed in low sv position. Call light in reach. Side rails up X2. Adult w/ patient. media monitor on. Pulse ox on. NIBP on. 15:44 X-ray(s) taken. sv 15:53 X-ray completed. Portable x-ray completed in exam room. Patient tolerated procedure mh1 well. 15:54 XRAY Pelvis In Process Unspecified. EDMS 15:54 XRAY Chest (1 view) In Process Unspecified. EDMS 15:55 Wilma Weeks, RN is Primary Nurse. iw 15:55 Wilma Weeks, RN is Primary Nurse. iw 16:00 Initial lab(s) drawn, by ak, sent to lab. T\T\S collected, blood band applied to patient. dh3 Inserted saline lock: 20 gauge in left hand, using aseptic technique. Blood collected. 16:[address] via stretcher. sv 16:10 CT Head C Spine In Process Unspecified. EDMS 16:36 Shoulder Right (2 View) XRAY In Process Unspecified. EDMS 16:36 Hip Left 2 View XRAY In Process Unspecified. EDMS 16:38 X-ray completed. Patient tolerated procedure well. Patient moved back from radiology. mh1 17:00 EKG done, by technical director. reviewed by Jessica Campos NP. at1 18:04 No provider procedures requiring assistance completed. IV discontinued, intact, sv bleeding controlled, No redness/swelling at site. Pressure dressing applied. Administered Medications: 15:55 Drug: fentaNYL (PF) 25 mcg Route: IVP; Site: left hand; sv 16:48 Follow up: Response: No adverse reaction sv 18:04 Drug: Tetanus-Diphtheria Toxoid Adult 0.5 ml {Rolling Machine Tender: [employer]. Exp: sv 06/20/2020. Lot #: [id number]. } Route: IM; Site: left deltoid; 18:04 Follow up: Response: No adverse reaction sv Intake: 15:15 PO: 0ml; Total: 0ml. sv 16:47 PO: 0ml; Total: 0ml. sv Output: 15:15 Urine: 0ml; Total: 0ml. sv 16:47 Urine: 0ml; Total: 0ml. sv Outcome: 17:40 Discharge ordered by . rh1 18:05 Discharged to home via wheelchair, with family. sv 18:05 Condition: stable 18:05 Discharge instructions given to patient, family, Instructed on discharge instructions, follow up and referral plans. Demonstrated understanding of instructions, follow-up care. 18:05 Patient left the ED. sv 19:29 Patient's length of stay in the Emergency Department was greater than 2 hours. sv resultsPatient's length of stay extended due to Signatures: Dispatcher [employer] Irma Travis RN RN sv Pooja Fragoso 1 Wilma Weeks RN RN Georgette zavala, sider mechanic EKG [facility]1 Jessica Campos NP LASER/ELECTRO OPTICS TECHNICIAN 1 Patricia Valiente 3 Corrections: (The following items were deleted from the chart) 15:40 15:15 Presenting complaint: EMS states: fall from standing position, alicia of wind blew sv and pt fell on concrete, hitting the left face. Abrasion to the left elbow. A\T\ O 2-3 per family. Pt on site stated LOC on arrival to ER pt stated +LOC. sv
--- NOTE | 2018-03-01 17:41 | EDPHYS ---
Physician Documentation [facility] Name: Javier Ahuja Age: 82 yrs Sex: Male : 1935 Arrival Date: 03/01/2018 Time: 15:22 Bed 6 Private MD: ED Physician Mahesh Moss HPI: 03/01 15:24 This 82 yrs old Male presents to ER via EMS with complaints of Fall Injury. rh1 15:24 Details of fall: The patient fell from an upright position, while walking, and struck a rh1 concrete surface. Onset: The symptoms/episode began/occurred just prior to arrival. Associated injuries: The patient sustained injury to the head, neck injury, upper back injury, injury to the chest, anterior aspect of right shoulder, decreased range of motion, painful injury, left elbow, abrasion, contusion. Severity of symptoms: At their worst the symptoms were moderate, in the emergency department the symptoms are unchanged. The patient has not experienced similar symptoms in the past. The patient has been recently seen at the [facility] Emergency Department, yesterday. Pt. reported to have attempted to open door to office and wind blew, causing him to fall back onto concrete, and his fell on top of him. Pt. reports pain at neck and right shoulder. Pt. reports he also fell yesterday, with right shoulder dislocation and reduction, wearing sling. No LOC.. Historical: - Allergies: 15:42 PENICILLINS; sv 15:42 Sulfa (Sulfonamide Antibiotics); sv 15:42 Tramadol HCl; sv 15:42 Demerol; sv - PMHx: 15:42 COPD; Hypertension; Myocardial infarction; Orthostatic hypotension; sv - PSHx: 15:42 CABG; pacemaker; rotator cuff; sv - Immunization history:: Adult Immunizations unknown. - Immunization history: Last tetanus immunization: unknown. - Social history:: Smoking status: Patient/guardian denies using tobacco. ROS: 15:24 Constitutional: Negative for fever rh1 15:24 Eyes: Negative for acute changes. 15:24 ENT: Negative for difficulty swallowing, difficulty handling secretions, hoarseness. 15:24 Neck: Positive for pain with movement. 15:24 Cardiovascular: Negative for chest pain, palpitations. 15:24 Respiratory: Positive for cough, Negative for shortness of breath. 15:24 Abdomen/GI: Negative for abdominal pain, nausea and vomiting. 15:24 Back: Negative for pain at rest, pain with movement. 15:24 MS/extremity: Positive for decreased range of motion, pain, of the anterior aspect of right shoulder. 15:24 Skin: Positive for abrasion(s), of the left elbow. 15:24 Neuro: Negative for altered mental status, dizziness, headache, loss of consciousness. Exam: 15:24 Constitutional: This is a well developed, well nourished patient who is awake, alert, rh1 and in no acute distress. 15:24 Cardiovascular: Regular rate and rhythm with a normal S1 and S2. No gallops, murmurs, or rubs. No JVD. No pulse deficits. 15:24 Abdomen/GI: Soft, non-tender, with normal bowel sounds. No distension. No guarding or rebound. No evidence of tenderness throughout. 15:24 ENT: Nares patent. No nasal discharge, no septal abnormalities noted. Tympanic membranes are normal and external auditory canals are clear. Oropharynx with no redness, swelling, or masses, exudates, or evidence of obstruction, uvula midline. Mucous membranes moist. 15:24 Head/face: Exam is negative for diaz signs, hematoma, raccoon eyes, swelling, tenderness, Noted is contusion, of the right eye, right cheek and left eye. 15:24 Eyes: Pupils: no acute changes, normal size, normal reaction to light, equal, right pupil is approximately 2 mm(s), left pupil is approximately 2 mm(s), Extraocular movements: intact throughout. 15:24 Neck: C-spine: C-collar placed in ED, vertebral tenderness, that is moderate, appreciated at C5, C6 and C7, crepitus, is not appreciated. 15:24 Chest/axilla: Inspection: normal, no abrasion, no assymetry, no deformity, no ecchymosis, no evidence of flail chest, no paradoxical chest wall movement, Palpation: crepitus, is not appreciated, tenderness, that is moderate, of the left clavicle and anterior aspect of left upper chest. 15:24 Respiratory: the patient does not display signs of respiratory distress, Respirations: normal, symetrical, no use of accessory muscles, no appreciated paradoxical movements, no prolonged exhalations, no pursed lip breathing, no tachypnea, Breath sounds: rhonchi, that are moderate, are scattered. 15:24 Abdomen/GI: Inspection: bruising, is not seen, distension, is not seen. 15:24 Back: pain, that is moderate, of the thoracic area, no step - offs. 15:24 Musculoskeletal/extremity: Extremities: grossly normal except: noted in the anterior aspect of right shoulder: decreased ROM, pain, There is no evidence of deformity, noted in the left elbow: abrasion, contusion, no evidence of decreased ROM, deformity, swelling, tenderness, ROM: full active range of motion, in the right elbow, right wrist, left arm, right leg and left leg, limited active range of motion, in the anterior aspect of right shoulder, limited active range of motion due to pain, in the left leg and anterior aspect of right shoulder, limited passive range of motion due to pain, in the left hip and anterior aspect of right shoulder, Pulses: noted to be 2+ in the right radial artery, right posterior tibial artery, right dorsalis pedis artery, left radial artery, left posterior tibial artery and left dorsalis pedis artery, Sensation intact. 15:24 Neuro: Orientation: to person, place, Not oriented to situation, reports he passed out and fell today. Mentation: appropriate for stated age, no acute changes, per family, able to follow commands, Memory: no acute changes, per family, Motor: moves all fours, Sensation: is normal, no obvious gross deficits. Vital Signs: 15:23 BP 132 / 65; Pulse 73; Resp 18; Temp 98.4(O); Pulse Ox 96% on R/A; dh3 16:47 BP 146 / 69; Pulse 68; Resp 17; Temp 98.2(O); Pulse Ox 98% on R/A; dh3 17:50 BP 129 / 77; Pulse 68; Resp 18; Temp 98.7; Pulse Ox 99% ; sv [place] Coma Score: 15:15 Eye Response: spontaneous(4). Verbal Response: confused(4). Motor Response: obeys sv commands(6). Total: 14. 16:47 Eye Response: spontaneous(4). Verbal Response: confused(4). Motor Response: obeys sv commands(6). Total: 14. 18:05 Eye Response: spontaneous(4). Verbal Response: confused(4). Motor Response: obeys sv commands(6). Total: 14. Trauma Score (Adult): 15:15 Eye Response: spontaneous(1); Verbal Response: confused(1); Motor Response: obeys sv commands(2); Systolic BP: > 89 mm Hg(4); Respiratory Rate: 10 to 29 per min(4); [place] Score: 14; Trauma Score: 12 16:47 Eye Response: spontaneous(1); Verbal Response: confused(1); Motor Response: obeys sv commands(2); Systolic BP: > 89 mm Hg(4); Respiratory Rate: 10 to 29 per min(4); [place] Score: 14; Trauma Score: 12 18:05 Eye Response: spontaneous(1); Verbal Response: confused(1); Motor Response: obeys sv commands(2); Systolic BP: > 89 mm Hg(4); Respiratory Rate: 10 to 29 per min(4); [place] Score: 14; Trauma Score: 12 MDM: 15:24 Patient medically screened. rh1 17:39 Data reviewed: vital signs, nurses notes, lab test result(s), EKG, radiologic studies, rh1 CT scan, plain films, I have discussed the patient's presentation/case with the attending Emergency Department Physician; and as a result, I will discharge patient. Data interpreted: Pulse oximetry: on room air is 98 %. Interpretation: normal. Counseling: I had a detailed discussion with the patient and/or guardian regarding: the historical points, exam findings, and any diagnostic results supporting the discharge/admit diagnosis, lab results, radiology results, the need for outpatient follow up, a family practitioner, to return to the emergency department if symptoms worsen or persist or if there are any questions or concerns that arise at home. Response to treatment: the patient's symptoms have markedly improved after treatment. 17:41 ED course: Pt. without tenderness at right anterior base of neck, with approx. 1.5 cm rh1 palpable non tender mass at site. Discussed with pt. and at bedside to follow up with PCP for further evaluation of mass.. 03/01 15:43 Order name: Basic Metabolic Panel; Complete Time: 16:38 rh1 03/01 15:43 Order name: CBC with Diff; Complete Time: 16:29 rh1 03/01 15:43 Order name: Creatinine for Radiology; Complete Time: 16:38 1 03/01 15:43 Order name: Type And Screen; Complete Time: 17:31 1 03/01 15:46 Order name: PT-INR; Complete Time: 16:54 1 03/01 15:46 Order name: Ptt, Activated; Complete Time: 16:54 1 03/01 15:43 Order name: XRAY Pelvis; Complete Time: 16:26 1 03/01 15:43 Order name: XRAY Chest (1 view); Complete Time: 16:26 1 03/01 15:43 Order name: CT Head C Spine; Complete Time: 16:38 1 03/01 15:43 Order name: Shoulder Right (2 View) XRAY; Complete Time: 16:48 [facility] 03/01 15:43 Order name: Hip Left 2 View XRAY; Complete Time: 16:47 1 03/01 15:47 Order name: EKG; Complete Time: 15:47 03/01 15:43 Order name: Labs collected and sent; Complete Time: 16:13 [facility] 03/01 15:46 Order name: EKG - Nurse/Tech; Complete Time: 16:48 rh1 Administered Medications: 15:55 Drug: fentaNYL (PF) 25 mcg Route: IVP; Site: left hand; sv 16:48 Follow up: Response: No adverse reaction sv 18:04 Drug: Tetanus-Diphtheria Toxoid Adult 0.5 ml {Interior Specialist: [place]. Exp: sv 06/20/2020. Lot #: [id number]. } Route: IM; Site: left deltoid; 18:04 Follow up: Response: No adverse reaction sv Disposition: 03/01/18 17:40 Discharged to Home. Impression: Superficial injury of head, Abrasion of left elbow, Contusion of left hip, Sprain of ligaments of cervical spine, right neck mass. - Condition is Stable. - Discharge Instructions: Abrasion, Contusion, Concussion, Adult, Head Injury, Adult, Post-Concussion Syndrome, Arm Sling Use, [id number], Cervical Sprain. - Medication Reconciliation Form, Thank You Letter, Antibiotic Education, Prescription Opioid Use form. - Follow up: Private Physician; When: 1 - 2 days; Reason: Recheck today's complaints, Continuance of care, Re-evaluation by your physician. Follow up: Emergency Department; When: As needed; Reason: Fever > 102 F, If symptoms return, Trouble breathing, Worsening of condition. - Problem is new. - Symptoms have improved. Addendum: 03/04/2018 07:52 Co-signature as Attending Physician, Mahesh Moss MD I agree with the assessment and w a plan of care. Signatures: Dispatcher [employer] Irma Travis RN RN sv Williams, Irene, RN RN iw Jones, Rachel, APPRENTICE PHOTOGRAPHER APPRENTICE PHOTOGRAPHER 1 Mahesh Moss MD MD va
[2018-03-01] MEDS ORDERED: TETANUS & DIPHTHERIA TOX,ADULT 0.5 ML VIAL ONE (18:00)
[2018-03-01 18:10] VITALS: BP 146/69; TEMP 98.2; O2SAT 98
--- NOTE | 2018-03-03 22:41 | EKG ---
Test Date: 2018-03-01 Test Time: 16:46:48 Windshield Repair Technician: ADEN MEASUREMENT RESULTS: Intervals: Rate: 68 TX: 160 QRSD: 110 QT: 406 QTc: 431 [place]: P: 75 TX: 160 QRS: -47 T: 73 INTERPRETIVE STATEMENTS: Normal sinus rhythm Left anterior fascicular block Abnormal ECG Compared to ECG 02/28/2018 17:35:16 Left anterior fascicular block now present Left-axis deviation no longer present Electronically Signed On 03-03-18 22:40:48 CDT by Antwan Chambers
== END 2018-03-01 18:05 | disposition home or self-care (01) ==
LOC: ER 15:23
DX: S13.4XXA Sprain of ligaments of cervical spine, initial encounter (principal); S00.90XA Unspecified superficial injury of unspecified part of head, initial encounter; R22.1 Localized swelling, mass and lump, neck; W18.39XA Other fall on same level, initial encounter; Y93.01 Activity, walking, marching and hiking; Y92.89 Other specified places as the place of occurrence of the external cause; Z23 Encounter for immunization; Z95.1 Presence of aortocoronary bypass graft; Z88.0 Allergy status to penicillin; Z88.2 Allergy status to sulfonamides; Z88.5 Allergy status to narcotic agent; Z88.6 Allergy status to analgesic agent; Z95.0 Presence of cardiac pacemaker; I10 Essential (primary) hypertension
CPT/HCPCS: 36415; 70450; 71045; 72125; 72170; 80048; 85025; 85610; 85730; 86850; 86900; 86901; 90714; 93005; 96374; 99285; J3010

== ENCOUNTER 2018-03-15 13:31 | Inpatient (IN) | payer OTHER ==
--- NOTE | 2018-03-15 10:20 | R.PREADM ---
SCREENING DATE AND TIME 03/14/2018 16:15 (CDT) ANTICIPATED REHAB ADMISSION DATE 03/16/2018 REFERRING FACILITY [facility] REFERRAL DATE AND TIME 03/14/2018 16:15 (CDT) ACUTE ADMIT DATE 03/05/2018 Previous Rehabilitation(s): No. REFERRING PHYSICIAN Shanita Cardenas REHAB FACILITY [facility] CLINICAL LIAISON Andres Rosenthal PHYSICIAN REVIEWER Dr. Luca Casas M.D. MR# [id number] NAME JOSE ALEXANDRA ADDRESS [address] [place] [address] [place]IP [phone] DATE OF 1935 AGE 82 SSN# [id number] GENDER male MARITAL STATUS RACE white ADMIT FROM 02 - [facility] PRE-HOSPITAL LIVING SETTING 01 - Home (private home/apt. board/care, assisted living, [facility], transitional living) HOME TYPE AND DETAILS Type of home: single family house # of levels in the residence: 1 # of steps within the residence: 0 # of steps to enter the residence: 0 PRE-HOSPITAL LIVING WITH Family/Relatives FAMILY SUPPORT Yes PRIMARY FAMILY CONTACT NAME Althea Alexandra PRIMARY FAMILY CONTACT PHONE PRIMARY FAMILY CONTACT ALT. PHONE PHONE PRIMARY FAMILY CONTACT ON ADM.? no IS PRIMARY FAMILY CONTACT AUTH. REP.? no 1ST EMERGENCY CONTACT Althea Alexandra 1ST CONTACT PHONE 1ST CONTACT ALT. PHONE PHONE 1ST CONTACT ON ADM. no IS 1ST CONTACT AUTH. REP.? no PHONE 2ND CONTACT ON ADM.? no PATIENT EMPLOYMENT STATUS Retired (for age) PATIENT EMPLOYER No Employer PAYOR INFORMATION: 1ST PAYOR NAME [facility] 1ST PAYOR INJURY/ILLNESS DUE TO ACCIDENT? No ANOTHER REPUBLICAN RESPONSIBLE? No PRIMARY REHAB/ACUTE DIAGNOSIS: R shoulder dislocation ONSET DATE 03/05/2018 REHAB IMPAIRMENT CATEGORY (ALLAN): 09 Orthopaedic (Ortho) does NOT meet 60% rule AFFECTED EXTREMITIES: RUE PRIMARY DIAGNOSIS-RELATED SURGERIES: Total arthroplasty COMORBID REHAB/ACUTE DIAGNOSES: - N/A CAD, HTN, BPH, Narcotic Intolerance, Ulnar neuropathy, Osteoporosis, HLD, Urinary retention, Alzheime r disease SUMMARY OF ACUTE HOSPITALIZATION: Pt. is a 82 yo Right-handed white male. On 03/05/2018 he was admitted to [facility] with diagnosis R shoulder dislocation. His impairment category is Orthopaedic Disorders 08 - Other Orthopaedic (08.9). Pre-morbidly, Pt. was independent/mod-I in Self-Care, Locomotion, Sphincter Control, Transfers Contro l, Communication, and Social Cognition; and he had good Sphincter Control. Currently, he has deficits of Self-Care, Locomotion, Endurance, Safety Awareness, Transfers Control, and Balance. Pt. is now referred to [facility] for acute in-patient rehabilitation in order to maximize patient's functional independence in activities of daily living, strength, ROM, and mobi lity. Patient has realistic goal of being discharged at assistance level 6-Cesar to reside at Home with Fam heriberto/Relatives. PAST MEDICAL HISTORY CAD, HTN, BPH, Narcotic Intolerance, Ulnar neuropathy, Osteoporosis, HLD, urinary retention, alzheime rs disease PAST SURGICAL HISTORY: L hip hemiarthroplasty, CABG, Appendectomy, pace maker insertion, spine surgery MEDICATION ALLERGIES: Nsaids ENVIRONMENTAL ALLERGIES: None Known - Substance Allergies None Known - Other Allergies None Known CODE STATUS: Full code WEIGHT/HEIGHT/BMI: WEIGHT 114 lbs HEIGHT 5' 4" BMI 19.6 DIET: - Diet Type Regular - Diet - Solid Texture Regular - Diet - Liquid Texture Regular - Tube Feed N/A SKIN DIAGRAM: Incision on Right shoulder; extent - small; stage - NS(Not Stageable). Treatment - Per Physician's Or ders. REVIEW OF SYSTEMS: - Gen Alert and awake Lying in bed No apparent distress Oriented to: person, time, and place - Vital Signs Temperature: 97.5 F SBP/DBP: 135/78 Pulse: 87 Resp: 18 Vital signs stable, afebrile - CVS RRR - MSK RUE in sling VITAL SIGNS Temperature: 97.5 F SBP/DBP: 135/78 Pulse: 87 Resp: 18 Vital signs stable, afebrile CURRENT SPHINCTER CONTROL: Pre-hospital bladder status: continent # of bladder accidents in the last 7 days prior to screenin Pre-hospital bowel status: continent # of bowel accidents in the last 7 days prior to screenin Last Bowel Movement Date: DETAILED CURRENT FUNCTIONAL STATUS: - Bladder accident frequency: Ind - No accidents in the past 7 days - Bowel accident frequency: Ind - No accidents in the past 7 days - Walking score based on distance walked: 2(5149ft) - Wheelchair score based on distance traveled: 0(N/A) FUNCTIONAL STATUS: - Self-Care A. Eating Cesar sup B. Grooming Cesar sup C. Bathing Cesar sup D. Dressing - Upper Cesar sup E. Dressing - Lower Cesar sup F. Toileting Cesar sup - Sphincter Control G: Bladder control Ind Ind H: Bowel control Ind Ind - Transfers Control I. Bed/Chair/Wheelchair Cesar sup J. Toilet Cesar ADNO K. Tub/Shower Cesar ADNO - Locomotion L. Walk/Wheelchair (C) Cesar sup L. Walk/Wheelchair (W) Cesar sup M. Stairs Cesar ADNO - Communication N. Comprehension (B) Ind Cesar O. Expression (B) Ind Cesar - Social Cognition P. Social Interaction Ind Cesar Q. Problem Solving Ind Cesar R. Memory Ind Cesar - Endurance Fair - Balance Fair - Safety Awareness Fair CURRENT FUNC. DEFICITS: Self-Care, Locomotion, Endurance, Safety Awareness, Transfers Control, and Balance THERAPY NOTES FROM ACUTE CARE: Attached. SPECIAL NEEDS: - Safety Concerns Skin breakdown precautions needed due to skin breakdown risk PRECAUTIONS: - Weight Bearing Precaution NWB right UE - Fall Precaution Bed and chair alarm PATIENT NEEDS ACTIVE AND ONGOING THERAPEUTIC INTERVENTION OF MULTIPLE THERAPY DISCIPLINES, INCLUDING: - Occupational Therapy Evaluate and Treat. - Physical Therapy Evaluate and Treat. PATIENT NEEDS CLOSE MEDICAL SUPERVISION BY A REHABILITATION PHYSICIAN FOR: Bowel and Bladder Management Coordination of Treatment Team Medical and Co-Morbidity Management Wound Care Pain Management DVT Management PATIENT REQUIRES 24X7 REHAB NURSING FOR MEDICAL AND FUNCTIONAL MGT. OF THE FOLLOWING DEFICITS: ADL's Ambulation Bowel and Bladder Management Communication Disease Management Medication Management Patient/Family Education Providing Safe Environment Skin Integrity Transfers Pain Management PATIENT REQUIRES INTENSIVE, COORDINATED INTERDISCIPLINARY APPROACH TO REHAB: Arranging Home Equipment/Services Discharge Planning Family Intervention/Training Spindle Maker/Case Management PATIENT REHAB POTENTIAL: Expected level of measurable improvement will be of a practical value to patient's functional capacit y or adaptations to impairments Has a viable Discharge Plan Medically appropriate; condition is sufficiently stable to participate in intensive rehab program Patient is able and expected to receive 3 hours of individualized therapy daily on at least 5 of ever y 7 days Patient's prognosis for significant practical improvement within a reasonable period of time appears Good DISCHARGE PLAN: - Estimated Length of Stay (days) 14. - Consensus on plan Discharge plan has been discussed with primary caregiver. Patient/Family is in agreement with the deyanira n. Primary caregiver is in agreement with the plan. - Patient/Family Goals Return home with assistance. - Planned Living Setting Upon Discharge Home, to live with Family/Relatives. RECOMMENDED CARE LEVEL: IRF RECOMMENDATION DETAILS: Recommended Admission to Comprehensive Rehabilitation Program to Increase Functional Jerome SCREENER'S COMPLETENESS CONFIRMATION: - Screening Confirmation The patient data collection on this preadmission screening form is finished PHYSICIANS REVIEW AND ADMISSION DETERMINATION Admit - Based on my review of the Pre-Admission Screening results, in my medical judgment and experie nce, I concur with the findings and recommend admission to [facility], as this patient requires an IRF level of care. SIGNATURE PANEL: Clinical Liaison - [electronically] signed by Andres Rosenthal on 03/14/2018 at 16:58 (CDT) Physician Reviewer - [electronically] signed by Dr. Luca Casas M.D. on 03/15/2018 at 09:21 (CDT )
--- OUTSIDE RECORDS SUMMARY | 2018-03-15 13:32 | XMS REPORT ---
:1935 [facility] Address [address] [place] [address] [address] [place] [address] Care Team Providers Name Role Phone MICKI [...] Department ID 2018-02-14 2018-02-14 Outpatient [facility] [id number] 19:50:00 19:50:00 MICKI Results Test Description Test Time Test Comments Text Results Atomic Results Result Comments Lipid Profile 2018-02-14 21:41:00 Test Item Value Reference Range Comments Cholesterol (test code=CHOL) 115 mg/dL 0-200 Triglycerides (test code=TRIG) 173 mg/dL 9-200 HDL (test code=HDL) 28 mg/dL 40-60 Chol/HDL (test code=CHOLPHDL) 4.1 Ratio 0.0-5.0 LDL, Calculated (test 52 0-130 (NOTE)RISK OF HEART DISEASEPublished code=LDLC) by [place] Heart AssociationAnalyte Optimal Boderline Increased RiskCHOL <200 200-239 >240TRIG <150 150-199 >200HDL Male: >60 <40HDL Female: >60 <50LDL <100 130-159 >160LDL NEAR OPTIMAL IS 100-129 VLDL (test code=VLDL) 35 mg/dL 5-40 LDL/HDL (test code=LDLPHDL) 2
[2018-03-15] MEDS ORDERED: CODEINE 30MG/APAP 300MG TAB PO PRN (14:36)
[2018-03-15] MEDS: HEPARIN 5000 UNIT/ML 1 ML VIAL SQ SCH (18:10)
[2018-03-15 18:44] LABS: Urine Appearance CLEAR; Urine Bilirubin NEGATIVE (NEG); Urine Blood TRACE (NEG); Urine Color YELLOW; Urine Glucose NEGATIVE (NEG); Urine Protein NEGATIVE (NEG); Urine Specific Gravity 1.015 (1.005-1.030); Urine pH 6.5 (5.0-7.0)
[2018-03-15] MEDS: IPRATROPIUM BROM 0.5MG/2.5ML NEB SCH (19:27)
[2018-03-15] MEDS: ALBUTEROL 2.5 MG/3 ML NEB SOL NEB SCH (19:27)
[2018-03-15 20:12] LABS: Urine Bacteria <20 /HPF (NONE SEEN); Urine RBC <5 /HPF (NONE SEEN)
[2018-03-15 20:13] LABS: Urine Culture Reflex Order NOT NEEDED
[2018-03-15] MEDS: DOCUSATE NA/SENNA CONC 1 TAB PO SCH (20:14)
[2018-03-15] MEDS: DOCOSAHEXANOIC AC/EPA 1000 MG PO SCH (20:14)
[2018-03-15] MEDS: ATORVASTATIN 40 MG TAB PO SCH (20:14)
[2018-03-15] MEDS: RISPERIDONE 0.25 MG TABLET PO SCH (20:14)
[2018-03-15] MEDS: CODEINE 30MG/APAP 300MG TAB PO PRN (21:35)
[2018-03-15] MEDS ORDERED: TRAZODONE 50 MG TABLET PO PRN (22:11)
[2018-03-16] MEDS: ALBUTEROL 2.5 MG/3 ML NEB SOL NEB SCH ×4 (01:31→19:34)
[2018-03-16] MEDS: IPRATROPIUM BROM 0.5MG/2.5ML NEB SCH ×4 (01:31→19:34)
--- NOTE | 2018-03-16 03:26 | FAST ---
SHIFT START DATE/TIME: 03/15/2018 19:00 (CDT) SHIFT END DATE/TIME: 03/16/2018 07:00 (CDT) NAME JOSE ALEXANDRA DATE OF : 1935 DATE OF ADMISSION: 03/15/2018 13:31 (CDT) PHONE: AGE: 82 N# [id number] GENDER: Male ENCOUNTER PHYSICIAN: Dr. Luca Casas M.D. ADMISSION DIAGNOSIS: - Orthopaedic Disorders 08 - Other Orthopaedic (08.9) R shoulder dislocation. EATING: Activity did not occur on this shift EATING - SCORE: 0-UNK GROOMING: Wash, rinse, and dry hands GROOMING - STEP 1: Does the patient require assistance when grooming? Yes. GROOMING - STEP 2: Does the patient require the assistance of a helper? Yes. GROOMING - STEP 3: How much assistance does the patient require from the helper? Cuing, coaxing, instructions, or encour agement for completion of grooming GROOMING - SCORE: 5-SUP BATHING: Activity did not occur on this shift BATHING - SCORE: 0-UNK DRESSING - UPPER BODY: Patient is not dressing in public clothing ARTICLES SCORE Total number of steps: 0 DRESSING - UPPER BODY - SCORE: 0-UNK DRESSING - LOWER BODY: Patient is not dressing in public clothing ARTICLES SCORE Total number of steps: 0 DRESSING - LOWER BODY - SCORE: 0-UNK TOILETING: TOILETING - STEP 1: Does the patient require assistance with toileting? Yes. TOILETING - STEP 2: Does the patient require the assistance of a helper? Yes. TOILETING - STEP 3: How much assistance does the patient require from the helper? Hands-on assistance from the helper TOILETING - STEP 4: Of the 3 tasks: 1) Adjusting clothing prior to use, 2) Cleansing of perineal area, 3) Adjusting clot aleksandr after use; How many tasks does the patient perform WITHOUT assistance of the helper? Three tasks with steadying assistance from the helper TOILETING - SCORE: 4-MIN BLADDER MANAGEMENT: BLADDER MANAGEMENT - STEP 1: Does the patient control the bladder completely and intentionally without equipment or devices or med ications, and is always continent? No. BLADDER MANAGEMENT - STEP 2: Does the patient require the assistance of a helper? Yes. BLADDER MANAGEMENT - STEP 3: How much assistance does the patient require from the helper? Patient requires contact assistance fro m the helper BLADDER MANAGEMENT - STEP 4: How much contact assistance does the patient require from the helper? Patient requires moderate esha tance, and performs 50% to 75% of bladder management tasks - Deerton positions AND holds urinal or bed gomez BLADDER MANAGEMENT - SCORE: 3-MOD BLADDER MANAGEMENT - FREQUENCY OF ACCIDENTS: BLADDER MANAGEMENT(FA) - STEP 1: How many accidents has the patient had during the current shift? 1 BOWEL MANAGEMENT: Activity did not occur on this shift BOWEL MANAGEMENT - SCORE: 7-IND TRANSFERS: BED, CHAIR, WHEELCHAIR: TRANSFERS: BED, CHAIR, WHEELCHAIR - STEP 1: Does the patient require assistance with bed, chair, or wheelchair transfers? Yes. TRANSFERS: BED, CHAIR, WHEELCHAIR - STEP 2: Does the patient require the assistance of a helper? Yes. TRANSFERS: BED, CHAIR, WHEELCHAIR - STEP 3: How much assistance does the patient require from the helper? Steadying/guiding assistance TRANSFERS: BED, CHAIR, WHEELCHAIR - SCORE: 4-MIN TRANSFERS: TOILET: TRANSFERS: TOILET - STEP 1: Does the patient require assistance with toilet transfers? Yes. TRANSFERS: TOILET - STEP 2: Does the patient require the assistance of a helper? Yes. TRANSFERS: TOILET - STEP 3: How much assistance does the patient require from the helper? Only supervision, cuing, coaxing, OR he lp to set out transfer equipment or to lock brakes and/or lift foot rests TRANSFERS: TOILET - SCORE: 5-SUP TRANSFERS: SHOWER: Activity did not occur on this shift TRANSFERS: SHOWER - SCORE: 0-UNK TRANSFERS: TUB: Activity did not occur on this shift TRANSFERS: TUB - SCORE: 0-UNK LOCOMOTION: WALK: Activity did not occur on this shift LOCOMOTION: WALK - SCORE: 0-UNK LOCOMOTION: WHEELCHAIR: Activity did not occur on this shift LOCOMOTION: WHEELCHAIR - SCORE: 0-UNK COMPREHENSION: COMPREHENSION: TYPE: Both COMPREHENSION - STEP 1: Does the patient require help to understand complex and abstract ideas (such as current events, finan christian, discharge planning, medical issues, relationships, etc)? No. COMPREHENSION - STEP 2: Does the patient need extra time, require an assistive device (such as glasses, hearing aids, or an a ugmentative communication system), OR does s/he have mild difficulty expressing complex and abstract ideas (including mild dysarthria or mild word-finding problems)? Yes. COMPREHENSION - SCORE: 6-MANOLO EXPRESSION EXPRESSION: TYPE: Both EXPRESSION - STEP 1: Does the patient require help expressing complex and abstract ideas (such as current events, finances , discharge planning, medical issues, relationships, etc)? No. EXPRESSION - STEP 2: Does the patient need extra time, require an assistive device (such as augmentive communication syste m or a communication board), OR does s/he have mild difficulty expressing complex and abstract ideas (including mild dysarthria or mild word-find problems)? Yes. EXPRESSION - SCORE: 6-MANOLO SOCIAL INTERACTION: SOCIAL INTERACTION - STEP 1: Does the patient require a helper to interact with others in social and therapeutic situations? No. SOCIAL INTERACTION - STEP 2: Does the patient need extra time in social situations, OR does s/he interact with staff, other patien ts, and family members ONLY in structured environments, OR does s/he require medication for social in teraction? Yes, patient needs extra time SOCIAL INTERACTION - SCORE: 6-MANOLO PROBLEM SOLVING: PROBLEM SOLVING - STEP 1: Does the patient need help to solve complex problems such as managing a checking account or confronti ng interpersonal problems? Yes. PROBLEM SOLVING - STEP 2: Does the patient solve basic routine problems half or more of the time? Yes. PROBLEM SOLVING - STEP 3: How often does the patient need help to solve basic routine problems? Less than 10% of the time PROBLEM SOLVING - SCORE: 5-SUP MEMORY: MEMORY - STEP 1: Does the patient need help to remember frequently encountered people, daily routines, and executing r equests? Yes. MEMORY - STEP 2: How often does the patient need help to remember frequently encountered people, daily routines, and e xecuting requests? Less than 10% of the time MEMORY - SCORE: 5-SUP
[2018-03-16] MEDS: CODEINE 30MG/APAP 300MG TAB PO PRN ×3 (03:48→20:03)
[2018-03-16 06:45] LABS: Absolute Lymphocytes (CBC) 1.1 K/uL (0.7-4.9); Absolute Monocytes 0.6 K/uL (0.1-1.3); Absolute Neutrophil 3.6 K/uL (1.8-8.0); Basophils % 0.5 % (0-1.3); Eosinophils % 1.5 % (0-4.4); Hematocrit 26.8 % (39.6-49.0); Lymphocytes % 19.6 % (15.3-44.8); MCH 29.9 pg (27.0-35.0); MCV 93.6 fL (80-100); MPV 7.9 fL (7.6-11.3); Monocytes % 10.8 % (3.3-12.3); RBC Red Blood Cell Count 2.87 M/uL (4.33-5.43)
[2018-03-16] MEDS: PANTOPRAZOLE 40MG TABLET PO SCH (06:59)
[2018-03-16] MEDS: HEPARIN 5000 UNIT/ML 1 ML VIAL SQ SCH ×2 (07:30→18:26)
[2018-03-16 07:31] LABS: Albumin 2.4 g/dL (3.2-5.5); Potassium 3.5 mEq/L (3.6-5.0); Prealbumin 14.4 mg/dl (18-38)
[2018-03-16] MEDS ORDERED: GABAPENTIN 300 MG CAP PO SCH (08:00)
[2018-03-16] MEDS ORDERED: FERROUS SULFATE 325 MG TAB PO SCH (08:00)
[2018-03-16] MEDS: DOCOSAHEXANOIC AC/EPA 1000 MG PO SCH ×4 (09:00→20:03)
[2018-03-16] MEDS: FINASTERIDE 5 MG TAB PO SCH (10:51)
[2018-03-16] MEDS: DOCUSATE NA/SENNA CONC 1 TAB PO SCH ×2 (10:51→20:04)
[2018-03-16] MEDS: ASPIRIN EC 81 MG TAB PO SCH (10:52)
[2018-03-16 11:08] VITALS: BMI 27.2
[2018-03-16] MEDS: POLYETHYL GLY 3350 17 GM/DOSE PO PRN (12:27)
--- NOTE | 2018-03-16 13:58 | RAD REPORT ---
EXAM DESCRIPTION: RAD - Chest Single View - 03/16/2018 1:40 pm CLINICAL HISTORY: Cough COMPARISON: 03/01/2018 FINDINGS: Portable technique limits examination quality. Linear opacities are present, greater in the left lung base suspicious for aspiration or pneumonia. T he heart is normal in size. Dual lead pacer device is in place.Right total shoulder arthroplasty note d. IMPRESSION: Linear opacities in both lung bases, greater on the left, suspicious for aspiration or d eveloping pneumonia.
--- NOTE | 2018-03-16 15:40 | R.HP ---
FACILITY: [facility] ENCOUNTER DATE AND TIME: 03/16/2018 14:29 (CDT) MR#: [id number] NAME JOSE ALEXANDRA ADDRESS: [address] [place] [address] ROAD [facility] CITY: [place]IP [address] PHONE: DATE OF : 1935 AGE: 82 SSN# [id number] GENDER: Male DEXTERITY Right-handed MARITAL STATUS RACE White PRE-HOSPITAL LIVING SETTING 01 - Home (private home/apt. board/care, assisted living, halfway, transitional living) PRE-HOSPITAL LIVING WITH Family/Relatives ENCOUNTER PHYSICIAN: Dr. Luca Casas M.D. REFERRING DOCTOR: shady Cardenas DATE OF ADMISSION: 03/15/2018 13:31 (CDT) REFERRING FACILITY [facility] HOME TYPE AND DETAILS: Type of home: single family house # of levels in the residence: 1 # of steps within the residence: 0 # of steps to enter the residence: 0 ADMISSION DIAGNOSIS: R shoulder dislocation ONSET DATE: 03/05/2018 PRIMARY DIAGNOSIS-RELATED SURGERIES: Total arthroplasty SECONDARY/COMORBID DIAGNOSES (TIERED): - N/A CAD, HTN, BPH, Narcotic Intolerance, Ulnar neuropathy, Osteoporosis, HLD, Urinary retention, Alzheime r disease HISTORY OF PRESENT ILLNESS (HPI): Pt. is a 82 yo Right-handed white male. On 03/05/2018 he was admitted to [facility] with diagnosis R shoulder dislocation. His impairment category is Orthopaedic Disorders 08 - Other Orthopaedic (08.9). Pre-morbidly, Pt. was independent/mod-I in Self-Care, Locomotion, Sphincter Control, Transfers Contro l, Communication, and Social Cognition; and he had good Sphincter Control. Currently, he has deficits of Self-Care, Locomotion, Endurance, Safety Awareness, Transfers Control, and Balance. Pt. is now referred to [facility] for acute in-patient rehabilitation in order to maximize patient's functional independence in activities of daily living, strength, ROM, and mobi lity. Patient has realistic goal of being discharged at assistance level 6-Cesar to reside at Home with Fam heriberto/Relatives. MEDICATION ALLERGIES: Nsaids ENVIRONMENTAL ALLERGIES: None Known - Substance Allergies None Known - Other Allergies None Known PAST MEDICAL HISTORY: CAD, HTN, BPH, Narcotic Intolerance, Ulnar neuropathy, Osteoporosis, HLD, urinary retention, alzheime rs disease PAST SURGICAL HISTORY: L hip hemiarthroplasty, CABG, Appendectomy, pace maker insertion, spine surgery FAMILY HISTORY: Family history is not contributory. SOCIAL HISTORY: - Home Living Family/Relatives REVIEW OF SYSTEMS: - Gen No Chills No Fatigue No Fever - Eyes No Double Vision No itchiness - ENMT No Difficulty Swallowing - CVS No Chest Discomfort No Chest Pain Fatigue No Weight Gain - Resp Cough No Shortness of Breath - GI Continent No Abdominal Pain No Constipation No Diarrhea - Continent No Kidney Pain No Painful Urination No Urinary Urgency - MSK No Joint Pain No Muscle Cramps Stiffness - Skin No Itching No Rash No Suspicious Lesions - Neuro No Coordination Difficulty No Difficulty with Concentration No Memory Loss No Seizures Weakness - Psych No Anxiety No Depression No HIV Exposure No Persistent Infections No Seasonal Allergies - Endo No Cold/Heat Intolerance No Excessive Hunger No Excessive Thirst No Excessive Urination PHYSICAL EXAM - Gen Alert and awake Lying in bed No apparent distress Oriented to: person, time, and place - Vital Signs Temperature: 97.5 F SBP/DBP: 116/60 Pulse: 79 Resp: 16 - Skin No breakdowns No numbness - Eyes No abnormalities - ENMT No abnormalities - Neck No abnormalities - CVS RRR - Chest Mildly decreased breath sounds bilaterally.with productive cough - Resp + upper airway ronchi - Abd +bowel sounds - GI Soft Deferred - No abnormalities - Ext no edema - MSK Normal bulk and tone in the upper and lower extremities - Neuro Moderate right upper extremity weakness with right arm in a sling. - Psych No abnormalities VITAL SIGNS Temperature: 97.5 F SBP/DBP: 135/78 Pulse: 87 Resp: 18 Vital signs stable, afebrile NURSING: - Shower allowing shower - Skin care per protocol PRECAUTIONS: - Weight Bearing Precaution NWB right UE - Fall Precaution Bed and chair alarm ACTIVITIES OOB only with supervision FUNCTIONAL STATUS: - Self-Care A. Eating Cesar sup B. Grooming Cesar sup C. Bathing Cesar sup D. Dressing - Upper Cesar sup E. Dressing - Lower Csear sup F. Toileting Cesar sup - Sphincter Control G: Bladder control Ind Ind H: Bowel control Ind Ind - Transfers Control I. Bed/Chair/Wheelchair Cesar sup J. Toilet Cesar ADNO K. Tub/Shower Cesar ADNO - Locomotion L. Walk/Wheelchair (C) Cesar sup L. Walk/Wheelchair (W) Cesar sup M. Stairs Cesar ADNO - Communication N. Comprehension (B) Ind Cesar O. Expression (B) Ind Cesar - Social Cognition P. Social Interaction Ind Cesar Q. Problem Solving Ind Cesar R. Memory Ind Cesar - Endurance Fair - Balance Fair - Safety Awareness Fair CURRENT FUNC. DEFICITS: Self-Care, Locomotion, Endurance, Safety Awareness, Transfers Control, and Balance ASSESSMENT: Pt. is a 82 yo Right-handed white male.On 03/05/2018 he was admitted to [facility] with diagnosis R shoulde r dislocation.His impairment category is Orthopaedic Disorders 08 - Other Orthopaedic (08.9).Pre-mor bidly, Pt. was independent/mod-I in Self-Care, Locomotion, Sphincter Control, Transfers Control, Comm unication, and Social Cognition; and he had good Sphincter Control.Currently, he has deficits of Self -Care, Locomotion, Endurance, Safety Awareness, Transfers Control, and Balance.Pt. is now referred to [facility] for acute in-patient rehabilitation in order to maximize patient's functional independence in activities of daily living, strength, ROM, and mobility.- Rehab Goal Patient has realistic goal of being discharged at assistance level 6-Cesar to reside at Home with Fam heriberto/Relatives. REHAB PLAN: - Physical Therapy Decreased range of motion - to improve, our physical therapists will perform initial evaluation of pt 's status upon admission and devise an individualized program for increasing patient's Range of Motio n. Gait dysfunction - to improve, our physical therapists will perform initial evaluation of pt's status upon admission and devise an individualized program for Gait Training, and Wheel Chair mobility Inability to transfer - to improve, our physical therapists will perform initial evaluation of pt's s tatus upon admission and devise an individualized program for Bed mobility Need for home safety evaluation - to improve, our physical therapists will perform initial evaluation of pt's status upon admission and devise an individualized program for Home Evaluation Need in caregiver upon discharge - to improve, our physical therapists will perform initial evaluatio n of pt's status upon admission and devise an individualized program for Caregiver Training New precaution - to improve, our physical therapists will perform initial evaluation of pt's status u vern admission and devise an individualized program for Patient precaution education Poor balance - to improve, our physical therapists will perform initial evaluation of pt's status upo n admission and devise an individualized program for Balance Training Poor endurance - to improve, our physical therapists will perform initial evaluation of pt's status u vern admission and devise an individualized program for Endurance Training Weakness - to improve, our physical therapists will perform initial evaluation of pt's status upon ad mission and devise an individualized program for Aquatic Therapy, Neuromuscular Reeducation, and Stre ngthening Achieving independence - to improve, our physical therapists will perform initial evaluation of pt's status upon admission and devise an individualized program for Community Reintegration Activities - Occupational Therapy ADL deficits - to improve, our occupation therapists will perform initial evaluation of pt's status u vern admission and devise an individualized program for Bathing, Bed mobility, Community Reintegration , Cooking, Dressing, Eating, Fine Motor Skills, Grooming, Homemaking, Kitchen Mobility, Laundry, Louann ent Education, Safety Awareness, Splinting - Positioning, Transfers(Toilet, Tub, Shower), and Wheel C hair Management Need for youth care professional - to improve, our occupation therapists will perform initial evaluation of pt's s tatus upon admission and devise an individualized program for Caregiver Training Weakness - to improve, our occupation therapists will perform initial evaluation of pt's status upon admission and devise an individualized program for Aquatic Therapy, Balance, Endurance, UE ROM, and U E strengthening MEDICAL PLAN: - Diet Type Start Regular - Diet - Liquid Texture Start Regular - Tube Feed Start N/A - Weight Bearing Precaution NWB right UE - Fall Precaution Bed and chair alarm - Skin care per protocol - Diet - Solid Texture Regular - Shower shower DISCHARGE PLAN: - Estimated Length of Stay (days) 14. - Consensus on plan Discharge plan has been discussed with primary caregiver. Patient/Family is in agreement with the deyanira n. Primary caregiver is in agreement with the plan. - Patient/Family Goals Return home with assistance. - Planned Living Setting Upon Discharge Home, to live with Family/Relatives. MISCELLANEOUS IMPORTED INFO: - N/A His chest x-ray shows possible bilateral pneumonia. Prior Barium study 01-30-18 showed possible aspira tion. Will have speech therapy work with him. SIGNATURE PANEL: (CDT)
--- NOTE | 2018-03-16 15:43 | PAPE ---
PATIENT: [facility] MR# [id number] REFERRING DOCTOR shady Cardenas EVALUATION DATE AND TIME 03/16/2018 14:42 (CDT) NAME JOSE ALEXANDRA DATE OF 1935 AGE 82 PHONE SSN# [id number] GENDER male EVALUATING PHYSICIAN Dr. Luca Casas M.D. ADMISSION DIAGNOSIS: R shoulder dislocation ONSET DATE 03/05/2018 SECONDARY/COMORBID DIAGNOSES TIERED: - N/A CAD, HTN, BPH, Narcotic Intolerance, Ulnar neuropathy, Osteoporosis, HLD, Urinary retention, Alzheime r disease POST-ADMISSION FUNCTIONAL/MEDICAL STATUS: - Bladder Same accident frequency: Ind - No accidents in the past 7 days - Bowel Same accident frequency: Ind - No accidents in the past 7 days - Walking Same score based on distance walked: 2(3039ft) - Wheelchair Same score based on distance traveled: 0(N/A) STATUS CHANGE EVALUATION: No change in Functional or Medical Status is identified compared with Pre-Admission screening. PATIENT NEEDS CLOSE MEDICAL SUPERVISION BY A REHABILITATION PHYSICIAN FOR: Bowel and Bladder Management Coordination of Treatment Team Medical and Co-Morbidity Management Wound Care Pain Management DVT Management PATIENT REQUIRES 24X7 REHAB NURSING FOR MEDICAL AND FUNCTIONAL MGT. OF THE FOLLOWING DEFICITS: ADL's Ambulation Bowel and Bladder Management Communication Disease Management Medication Management Patient/Family Education Providing Safe Environment Skin Integrity Transfers Pain Management PATIENT REQUIRES INTENSIVE, COORDINATED INTERDISCIPLINARY APPROACH TO REHAB: Arranging Home Equipment/Services Discharge Planning Family Intervention/Training Bottle Washer/Case Management LIST OF IDENTIFIED AND POTENTIAL PROBLEMS: Alteration in leisure activities Bladder, Incontinence Bowel, Incontinence Infection, Actual or Potential Mobility Impaired Pain, Alteration in Comfort Self Care Deficit Skin Integrity, Actual or Potential Urinary Tract Infection (UTI), Actual or Potential PATIENT COULD BE AT RISK FOR COMPLICATIONS FROM ADVERSE MEDICAL CONDITIONS DUE TO HIS/HER COMORBIDITI ES AND THE RIGORS OF THE INTENSIVE REHABILLITATION PROGRAM. METHODS OR INTERVENTIONS TO AVOID COMPLIC ATIONS INCLUDE: - Deep Vein Thrombosis (DVT) Prophylaxis therapy for prevention . Sequential Compression Device (SCD). TE D Hose. - Bleeding Assess lab values and manage abnormalities. Nursing to teach precautions for anti-coagulation therapy . Wound to be assessed every shift. - Infection Clinical staff to assess and manage the signs and symptoms of infection including fever, redness, war mth, etc. - Urinary Tract Infection - Falls Patient will be evaluated for Fall Precautions and will be placed on Fall Precautions as indicated pe r protocol. - Skin Breakdown Nursing will assess skin daily using assessment tool and will place on Skin Breakdown Precautions as indicated per protocol. - Pain Clinical staff may employ non-medication methods such as massage, distraction, decrease stimulus, etc . as needed. Clinical staff will assess patient's pain level every shift per protocol to assess and e nsure pain management effectiveness. Medications will be given and the pain level re-assessed. PRELIMINARY PLAN OF CARE: - Physical Therapy Patient needs Physical Therapy for a daily minimum of 1.5 hours at least 5 out of 7 days, to improve: Mobility, Strengthening, Transfers, Stretching, ROM, Endurance, Ability to manage stairs, Gait, and Balance. - Speech Therapy Patient needs Speech Therapy for a daily minimum of 0.5 hours at least 5 out of 7 days, to improve: S wallowing, Cognition, Language Skills, and Compensatory Strategies. - Rehabilitation Nursing Patient requires 24x7 Rehabilitation Nursing for: Pain Issues, Identifying and preventing risk factor s, Monitoring and reporting current medical conditions, Assisting with ambulation and transfer, Lito ting with all ADL-s, Teaching patients about disease process and medications, Family teaching, Provid ing safe environment, Bowel and Bladder Issues, Skin Integrity, and Medication Management. Patient needs Bottle Washer and/or Case Management for: Discharge Planning, Arranging Home Equipmen t or Services, and Family Interventions. - Dietary and Nutrition Services Patient needs Dietary and Nutrition Services for: Adequate Nutrition, Nutritional Supplements, and Nu tritional Education. - Occupational Therapy Patient needs Occupational Therapy for a daily minimum of 1.5 hours at least 5 out of 7 days, to impr ove Activities of Daily Living, including: Eating, Grooming, Bathing, Dressing, Toileting, Toilet Tra nsfers, Community Reintegration, Higher functional activities, Adaptive Equipment, Splinting, Househo ld Tasks, and Other activities as determined. POTENTIAL FUNCTIONAL GOALS FOR PATIENT TO ACHIEVE BY DISCHARGE: - Safety Precaution Patient will remain free from falls or injury at time of discharge. - Bed Mobility Patient will perform bed mobility at 4-Cassandra level of assistance. - Transfers Patient will complete transfers from bed to chair at 4-Cassandra level of assistance. - Mobility Patient will ambulate 150 ft with 4-Cassandra level of assistance with RW. PATIENT REHAB POTENTIAL Expected level of measurable improvement will be of a practical value to patient's functional capacit y or adaptations to impairments Has a viable Discharge Plan Medically appropriate; condition is sufficiently stable to participate in intensive rehab program Patient is able and expected to receive 3 hours of individualized therapy daily on at least 5 of ever y 7 days Patient's prognosis for significant practical improvement within a reasonable period of time appears Good DISCHARGE PLAN: - Estimated Length of Stay (days) 14. - Consensus on plan Discharge plan has been discussed with primary caregiver. Patient/Family is in agreement with the deyanira n. Primary caregiver is in agreement with the plan. - Patient/Family Goals Return home with assistance. - Planned Living Setting Upon Discharge Home, to live with Family/Relatives. CONCLUSION ON REHABILITATION NECESSITY: I have evaluated patient's pre-admission functional status and, comparing it to the patient's post-ad mission functional status now, I conclude that the pre-admission assessment was accurate. Patient's c ondition on admission supports the medical necessity of admission to IR[facility]. It is safe to proceed with patient's therapy program. SIGNATURE PANEL: (CDT)
--- NOTE | 2018-03-16 17:21 | FAST ---
SHIFT START DATE/TIME: 03/16/2018 07:00 (CDT) SHIFT END DATE/TIME: 03/16/2018 19:00 (CDT) NAME JOSE ALEXANDRA DATE OF : 1935 DATE OF ADMISSION: 03/15/2018 13:31 (CDT) PHONE: AGE: 82 N# [id number] GENDER: Male ENCOUNTER PHYSICIAN: Dr. Luca Casas M.D. ADMISSION DIAGNOSIS: - Orthopaedic Disorders 08 - Other Orthopaedic (08.9) R shoulder dislocation. EATING: EATING - STEP 1: Does the patient require assistance when eating? Yes. EATING - STEP 2: Does the patient require the assistance of a helper? No, patient only requires an assistive device, O R s/he takes more than reasonable time to eat, OR there is a safety concern, OR s/he requires modifie d food consistency EATING - SCORE: 6-MANOLO GROOMING: Activity did not occur on this shift GROOMING - SCORE: 0-UNK BATHING: Activity did not occur on this shift BATHING - SCORE: 0-UNK DRESSING - UPPER BODY: Activity did not occur on this shift ARTICLES SCORE Total number of steps: 0 DRESSING - UPPER BODY - SCORE: 0-UNK DRESSING - LOWER BODY: Activity did not occur on this shift ARTICLES SCORE Total number of steps: 0 DRESSING - LOWER BODY - SCORE: 0-UNK TOILETING: TOILETING - STEP 1: Does the patient require assistance with toileting? Yes. TOILETING - STEP 2: Does the patient require the assistance of a helper? Yes. TOILETING - STEP 3: How much assistance does the patient require from the helper? Hands-on assistance from the helper TOILETING - STEP 4: Of the 3 tasks: 1) Adjusting clothing prior to use, 2) Cleansing of perineal area, 3) Adjusting clot aleksandr after use; How many tasks does the patient perform WITHOUT assistance of the helper? No tasks; h elper performs all three tasks TOILETING - SCORE: 1-DEP BLADDER MANAGEMENT: Winn removes incontinent device (Depends, pull ups, etc.); cleans the patient after accident / inco ntinent episode; and, applies new incontinent device. BLADDER MANAGEMENT - SCORE: 1-DEP BLADDER MANAGEMENT - FREQUENCY OF ACCIDENTS: BLADDER MANAGEMENT(FA) - STEP 1: How many accidents has the patient had during the current shift? 1 BOWEL MANAGEMENT: Activity did not occur on this shift BOWEL MANAGEMENT - SCORE: 7-IND BOWEL MANAGEMENT - FREQUENCY OF ACCIDENTS: BOWEL MANAGEMENT(FA) - STEP 1: How many accidents has the patient had during the current shift? 0 TRANSFERS: BED, CHAIR, WHEELCHAIR: TRANSFERS: BED, CHAIR, WHEELCHAIR - STEP 1: Does the patient require assistance with bed, chair, or wheelchair transfers? Yes. TRANSFERS: BED, CHAIR, WHEELCHAIR - STEP 2: Does the patient require the assistance of a helper? Yes. TRANSFERS: BED, CHAIR, WHEELCHAIR - STEP 3: How much assistance does the patient require from the helper? Only supervision TRANSFERS: BED, CHAIR, WHEELCHAIR - SCORE: 5-SUP TRANSFERS: TOILET: Activity did not occur on this shift TRANSFERS: TOILET - SCORE: 0-UNK TRANSFERS: SHOWER: Activity did not occur on this shift TRANSFERS: SHOWER - SCORE: 0-UNK TRANSFERS: TUB: Activity did not occur on this shift TRANSFERS: TUB - SCORE: 0-UNK LOCOMOTION: WALK: Activity did not occur on this shift LOCOMOTION: WALK - SCORE: 0-UNK LOCOMOTION: WHEELCHAIR: LOCOMOTION: WHEELCHAIR - STEP 1: Does the patient need help to go 150 feet in a wheelchair? Yes. LOCOMOTION: WHEELCHAIR - STEP 2: How much assistance does the patient need from the helper? Only supervision, cuing, or coaxing LOCOMOTION: WHEELCHAIR - SCORE: 5-SUP COMPREHENSION: COMPREHENSION: TYPE: Both COMPREHENSION - STEP 1: Does the patient require help to understand complex and abstract ideas (such as current events, finan christian, discharge planning, medical issues, relationships, etc)? Yes. COMPREHENSION - STEP 2: Does the patient require help to understand questions or statements about basic needs or ideas (such as hunger, thirst, sleep, safety, daily schedule, room location, or discomfort) half or more of the t sari? No. COMPREHENSION - STEP 3: How often does the patient need help to understand directions and conversation about basic needs? Les s than 10% of the time COMPREHENSION - SCORE: 5-SUP EXPRESSION EXPRESSION: TYPE: Both EXPRESSION - STEP 1: Does the patient require help expressing complex and abstract ideas (such as current events, finances , discharge planning, medical issues, relationships, etc)? No. EXPRESSION - STEP 2: Does the patient need extra time, require an assistive device (such as augmentive communication syste m or a communication board), OR does s/he have mild difficulty expressing complex and abstract ideas (including mild dysarthria or mild word-find problems)? Yes. EXPRESSION - SCORE: 6-MANOLO SOCIAL INTERACTION: SOCIAL INTERACTION - STEP 1: Does the patient require a helper to interact with others in social and therapeutic situations? No. SOCIAL INTERACTION - STEP 2: Does the patient need extra time in social situations, OR does s/he interact with staff, other patien ts, and family members ONLY in structured environments, OR does s/he require medication for social in teraction? Yes, patient needs extra time SOCIAL INTERACTION - SCORE: 6-MANOLO PROBLEM SOLVING: PROBLEM SOLVING - STEP 1: Does the patient need help to solve complex problems such as managing a checking account or confronti ng interpersonal problems? Yes. PROBLEM SOLVING - STEP 2: Does the patient solve basic routine problems half or more of the time? Yes. PROBLEM SOLVING - STEP 3: How often does the patient need help to solve basic routine problems? Less than 10% of the time PROBLEM SOLVING - SCORE: 5-SUP MEMORY: MEMORY - STEP 1: Does the patient need help to remember frequently encountered people, daily routines, and executing r equests? Yes. MEMORY - STEP 2: How often does the patient need help to remember frequently encountered people, daily routines, and e xecuting requests? Less than 10% of the time MEMORY - SCORE: 5-SUP SIGNATURE PANEL: The following modified sections: Eating - Score, Grooming - Score, Bathing - Score, Dressing - Upper Body - Score, Dressing - Lower Body - Score, Toileting - Score, Bladder Management - Score, Bowel Man agement - Score, Transfers: Bed, Chair, Wheelchair - Score, Transfers: Toilet - Score, Transfers: Leonela wer - Score, Transfers: Tub - Score, Locomotion: Walk - Score, Locomotion: Wheelchair - Score, Compre hension - Score, Expression - Score, Social Interaction - Score, Problem Solving - Score, Memory - Sc ore were [electronically] signed by Ingrid Lackey C.N.A. on Sat Mar 16 2018 16:23:17 T-0500 (Centra [place] Daylight Time)
[2018-03-16] MEDS: guaiFENesin 100 MG/5 ML UCUP PO PRN (17:22)
[2018-03-16] MEDS: levoFLOXacin 500 MG TAB PO SCH (17:22)
[2018-03-16] MEDS: RISPERIDONE 0.25 MG TABLET PO SCH (20:03)
[2018-03-16] MEDS: ATORVASTATIN 40 MG TAB PO SCH (20:03)
[2018-03-16] MEDS: GABAPENTIN 300 MG CAP PO SCH (20:03)
[2018-03-16] MEDS: FERROUS SULFATE 325 MG TAB PO SCH (20:03)
[2018-03-16] MEDS: TRAZODONE 50 MG TABLET PO PRN (21:20)
[2018-03-17] MEDS: CODEINE 30MG/APAP 300MG TAB PO PRN ×3 (01:01→20:41)
--- NOTE | 2018-03-17 02:33 | FAST ---
SHIFT START DATE/TIME: 03/16/2018 19:00 (CDT) SHIFT END DATE/TIME: 03/17/2018 07:00 (CDT) NAME JOSE ALEXANDRA DATE OF : 1935 DATE OF ADMISSION: 03/15/2018 13:31 (CDT) PHONE: AGE: 82 N# [id number] GENDER: Male ENCOUNTER PHYSICIAN: Dr. Luca Casas M.D. ADMISSION DIAGNOSIS: - Orthopaedic Disorders 08 - Other Orthopaedic (08.9) R shoulder dislocation. EATING: Activity did not occur on this shift EATING - SCORE: 0-UNK GROOMING: Wash, rinse, and dry hands GROOMING - STEP 1: Does the patient require assistance when grooming? Yes. GROOMING - STEP 2: Does the patient require the assistance of a helper? Yes. GROOMING - STEP 3: How much assistance does the patient require from the helper? Cuing, coaxing, instructions, or encour agement for completion of grooming GROOMING - SCORE: 5-SUP BATHING: Activity did not occur on this shift BATHING - SCORE: 0-UNK DRESSING - UPPER BODY: Patient is not dressing in public clothing ARTICLES SCORE Total number of steps: 0 DRESSING - UPPER BODY - SCORE: 0-UNK DRESSING - LOWER BODY: Patient is not dressing in public clothing ARTICLES SCORE Total number of steps: 0 DRESSING - LOWER BODY - SCORE: 0-UNK TOILETING: TOILETING - STEP 1: Does the patient require assistance with toileting? Yes. TOILETING - STEP 2: Does the patient require the assistance of a helper? Yes. TOILETING - STEP 3: How much assistance does the patient require from the helper? Hands-on assistance from the helper TOILETING - STEP 4: Of the 3 tasks: 1) Adjusting clothing prior to use, 2) Cleansing of perineal area, 3) Adjusting clot aleksandr after use; How many tasks does the patient perform WITHOUT assistance of the helper? No tasks; georgina castle performs all three tasks TOILETING - SCORE: 1-DEP BLADDER MANAGEMENT: BLADDER MANAGEMENT - STEP 1: Does the patient control the bladder completely and intentionally without equipment or devices or med ications, and is always continent? No. BLADDER MANAGEMENT - STEP 2: Does the patient require the assistance of a helper? Yes. BLADDER MANAGEMENT - STEP 3: How much assistance does the patient require from the helper? Patient requires contact assistance fro m the helper BLADDER MANAGEMENT - STEP 4: How much contact assistance does the patient require from the helper? Patient requires moderate esha tance, and performs 50% to 75% of bladder management tasks - Lincoln positions AND holds urinal or bed gomez BLADDER MANAGEMENT - SCORE: 3-MOD BOWEL MANAGEMENT: Activity did not occur on this shift BOWEL MANAGEMENT - SCORE: 7-IND TRANSFERS: BED, CHAIR, WHEELCHAIR: TRANSFERS: BED, CHAIR, WHEELCHAIR - STEP 1: Does the patient require assistance with bed, chair, or wheelchair transfers? Yes. TRANSFERS: BED, CHAIR, WHEELCHAIR - STEP 2: Does the patient require the assistance of a helper? Yes. TRANSFERS: BED, CHAIR, WHEELCHAIR - STEP 3: How much assistance does the patient require from the helper? Steadying/guiding assistance TRANSFERS: BED, CHAIR, WHEELCHAIR - SCORE: 4-MIN TRANSFERS: TOILET: Activity did not occur on this shift TRANSFERS: TOILET - SCORE: 0-UNK TRANSFERS: SHOWER: Activity did not occur on this shift TRANSFERS: SHOWER - SCORE: 0-UNK TRANSFERS: TUB: Activity did not occur on this shift TRANSFERS: TUB - SCORE: 0-UNK LOCOMOTION: WALK: Activity did not occur on this shift LOCOMOTION: WALK - SCORE: 0-UNK LOCOMOTION: WHEELCHAIR: Activity did not occur on this shift LOCOMOTION: WHEELCHAIR - SCORE: 0-UNK COMPREHENSION: COMPREHENSION - STEP 1: Does the patient require help to understand complex and abstract ideas (such as current events, finan christian, discharge planning, medical issues, relationships, etc)? Yes. COMPREHENSION - STEP 2: Does the patient require help to understand questions or statements about basic needs or ideas (such as hunger, thirst, sleep, safety, daily schedule, room location, or discomfort) half or more of the t sari? No. COMPREHENSION - STEP 3: How often does the patient need help to understand directions and conversation about basic needs? 10% - 24% of the time COMPREHENSION - SCORE: 4-MIN EXPRESSION EXPRESSION - STEP 1: Does the patient require help expressing complex and abstract ideas (such as current events, finances , discharge planning, medical issues, relationships, etc)? Yes. EXPRESSION - STEP 2: Does the patient require help to express basic necessities or ideas (such as hunger, thirst, sleep, s afety, daily schedule, room location, or discomfort) half or more of the time? No. EXPRESSION - STEP 3: How often does the patient need help to express directions and conversation about basic needs? 10-24% of the time EXPRESSION - SCORE: 4-MIN SOCIAL INTERACTION: SOCIAL INTERACTION - STEP 1: Does the patient require a helper to interact with others in social and therapeutic situations? No. SOCIAL INTERACTION - STEP 2: Does the patient need extra time in social situations, OR does s/he interact with staff, other patien ts, and family members ONLY in structured environments, OR does s/he require medication for social in teraction? Yes, patient needs extra time SOCIAL INTERACTION - SCORE: 6-MANOLO PROBLEM SOLVING: PROBLEM SOLVING - STEP 1: Does the patient need help to solve complex problems such as managing a checking account or confronti ng interpersonal problems? Yes. PROBLEM SOLVING - STEP 2: Does the patient solve basic routine problems half or more of the time? Yes. PROBLEM SOLVING - STEP 3: How often does the patient need help to solve basic routine problems? 10%-24% of the time PROBLEM SOLVING - SCORE: 4-MIN MEMORY: MEMORY - STEP 1: Does the patient need help to remember frequently encountered people, daily routines, and executing r equests? Yes. MEMORY - STEP 2: How often does the patient need help to remember frequently encountered people, daily routines, and e xecuting requests? 25% - 49% of the time MEMORY - SCORE: 3-MOD SIGNATURE PANEL: The following modified sections: Eating - Score, Grooming - Score, Dressing - Upper Body - Score, Shashank ssing - Lower Body - Score, Toileting - Score, Bladder Management - Score, Bowel Management - Score, Transfers: Bed, Chair, Wheelchair - Score, Transfers: Toilet - Score, Transfers: Shower - Score, Alvarado sfers: Tub - Score, Locomotion: Walk - Score, Locomotion: Wheelchair - Score, Comprehension - Score, Expression - Score, Social Interaction - Score, Problem Solving - Score, Memory - Score were [electro nically] signed by Crys Benz CNA on SunMar 17 2018 01:34:57 GMT-0500 (Central Daylight Time)
[2018-03-17] MEDS ORDERED: NITROGLYCERIN 0.4 MG/TAB SL PRN (02:58)
[2018-03-17] MEDS: MAGNES/ALUMIN/SIMET 30ML UCUP PO PRN (03:09)
[2018-03-17] MEDS: PANTOPRAZOLE 40MG TABLET PO SCH (06:13)
[2018-03-17] MEDS: HEPARIN 5000 UNIT/ML 1 ML VIAL SQ SCH ×2 (07:45→18:27)
[2018-03-17] MEDS: IPRATROPIUM BROM 0.5MG/2.5ML NEB SCH ×3 (07:58→19:14)
[2018-03-17] MEDS: ALBUTEROL 2.5 MG/3 ML NEB SOL NEB SCH ×3 (07:58→19:14)
[2018-03-17] MEDS: FERROUS SULFATE 325 MG TAB PO SCH ×2 (08:48→20:42)
[2018-03-17] MEDS: GABAPENTIN 300 MG CAP PO SCH ×2 (08:48→20:43)
[2018-03-17] MEDS: DOCOSAHEXANOIC AC/EPA 1000 MG PO SCH (08:48)
[2018-03-17] MEDS: ASPIRIN EC 81 MG TAB PO SCH (08:49)
[2018-03-17] MEDS: levoFLOXacin 500 MG TAB PO SCH (08:49)
[2018-03-17] MEDS: FINASTERIDE 5 MG TAB PO SCH (08:50)
[2018-03-17] MEDS ORDERED: MAGNESIUM HYDROXIDE 8% 30 ML PO PRN (08:52)
[2018-03-17] MEDS: POLYETHYL GLY 3350 17 GM/DOSE PO PRN (12:14)
[2018-03-17] MEDS: guaiFENesin 100 MG/5 ML UCUP PO PRN ×2 (12:14→17:07)
[2018-03-17] MEDS ORDERED: BISACODYL 10 MG RECTAL SUPP PR PRN (12:40)
--- NOTE | 2018-03-17 15:56 | FAST ---
SHIFT START DATE/TIME: 03/17/2018 07:00 (CDT) SHIFT END DATE/TIME: 03/17/2018 19:00 (CDT) NAME JOSE ALEXANDRA DATE OF : 1935 DATE OF ADMISSION: 03/15/2018 13:31 (CDT) PHONE: AGE: 82 N# [id number] GENDER: Male ENCOUNTER PHYSICIAN: Dr. Luca Casas M.D. ADMISSION DIAGNOSIS: - Orthopaedic Disorders 08 - Other Orthopaedic (08.9) R shoulder dislocation. EATING: EATING - STEP 1: Does the patient require assistance when eating? Yes. EATING - STEP 2: Does the patient require the assistance of a helper? Yes. EATING - STEP 3: Does the patient perform half or more of the eating tasks? Yes. EATING - STEP 4: Does the patient need only supervision, cuing, coaxing OR help to apply an orthosis OR help to cut fo od, open containers, pour liquids, or butter bread? Yes. EATING - SCORE: 5-SUP GROOMING: Activity did not occur on this shift GROOMING - SCORE: 0-UNK BATHING: Activity did not occur on this shift BATHING - SCORE: 0-UNK DRESSING - UPPER BODY: Activity did not occur on this shift ARTICLES SCORE Total number of steps: 0 DRESSING - UPPER BODY - SCORE: 0-UNK DRESSING - LOWER BODY: Elastic waist pants (three steps) Underwear (three steps) ARTICLES SCORE Total number of steps: 6 DRESSING - LOWER BODY - STEP 1: Does the patient require help when dressing below the waist? Yes. DRESSING - LOWER BODY - STEP 2: Does the patient require the assistance of a helper? Yes. DRESSING - LOWER BODY - STEP 3: Does the helper touch the patient while dressing? Yes. DRESSING - LOWER BODY - STEP 4: How many of the total steps does the patient complete on his/her own? 0 DRESSING - LOWER BODY - STEP 5: Does patient require total assistance for dressing below the waist such as the helper holding clothin g and performing basically all the activities? Yes. DRESSING - LOWER BODY - SCORE: 1-DEP DRESSING - LOWER BODY - COMMENTS: Pt with immobilizer on right arm TOILETING: TOILETING - STEP 1: Does the patient require assistance with toileting? Yes. TOILETING - STEP 2: Does the patient require the assistance of a helper? Yes. TOILETING - STEP 3: How much assistance does the patient require from the helper? Hands-on assistance from the helper TOILETING - STEP 4: Of the 3 tasks: 1) Adjusting clothing prior to use, 2) Cleansing of perineal area, 3) Adjusting clot aleksandr after use; How many tasks does the patient perform WITHOUT assistance of the helper? Three tasks with steadying assistance from the helper TOILETING - SCORE: 4-MIN BLADDER MANAGEMENT: BLADDER MANAGEMENT - STEP 1: Does the patient control the bladder completely and intentionally without equipment or devices or med ications, and is always continent? No. BLADDER MANAGEMENT - STEP 2: Does the patient require the assistance of a helper? Yes. BLADDER MANAGEMENT - STEP 3: How much assistance does the patient require from the helper? Only set-up of equipment - such as plac ing it within reach of the patient or emptying a device - to maintain either satisfactory voiding pat tern or managing an external device, such as an absorbent pad, ileal device, or catheter BLADDER MANAGEMENT - SCORE: 5-SUP BLADDER MANAGEMENT - FREQUENCY OF ACCIDENTS: BLADDER MANAGEMENT(FA) - STEP 1: How many accidents has the patient had during the current shift? 0 BOWEL MANAGEMENT: Activity did not occur on this shift BOWEL MANAGEMENT - SCORE: 7-IND BOWEL MANAGEMENT - FREQUENCY OF ACCIDENTS: BOWEL MANAGEMENT(FA) - STEP 1: How many accidents has the patient had during the current shift? 0 TRANSFERS: BED, CHAIR, WHEELCHAIR: TRANSFERS: BED, CHAIR, WHEELCHAIR - STEP 1: Does the patient require assistance with bed, chair, or wheelchair transfers? Yes. TRANSFERS: BED, CHAIR, WHEELCHAIR - STEP 2: Does the patient require the assistance of a helper? Yes. TRANSFERS: BED, CHAIR, WHEELCHAIR - STEP 3: How much assistance does the patient require from the helper? Steadying/guiding assistance TRANSFERS: BED, CHAIR, WHEELCHAIR - SCORE: 4-MIN TRANSFERS: TOILET: TRANSFERS: TOILET - STEP 1: Does the patient require assistance with toilet transfers? Yes. TRANSFERS: TOILET - STEP 2: Does the patient require the assistance of a helper? Yes. TRANSFERS: TOILET - STEP 3: How much assistance does the patient require from the helper? Patient performs half or more of the tr ansferring tasks TRANSFERS: TOILET - STEP 4: Does the patient need only incidental help such as contact guard or steadying during toilet transfer? Yes. TRANSFERS: TOILET - SCORE: 4-MIN TRANSFERS: SHOWER: Activity did not occur on this shift TRANSFERS: SHOWER - SCORE: 0-UNK TRANSFERS: TUB: Activity did not occur on this shift TRANSFERS: TUB - SCORE: 0-UNK LOCOMOTION: WALK: Activity did not occur on this shift LOCOMOTION: WALK - SCORE: 0-UNK LOCOMOTION: WHEELCHAIR: LOCOMOTION: WHEELCHAIR - STEP 1: Does the patient need help to go 150 feet in a wheelchair? Yes. LOCOMOTION: WHEELCHAIR - STEP 2: How much assistance does the patient need from the helper? Only supervision, cuing, or coaxing LOCOMOTION: WHEELCHAIR - SCORE: 5-SUP COMPREHENSION: COMPREHENSION: TYPE: Both COMPREHENSION - STEP 1: Does the patient require help to understand complex and abstract ideas (such as current events, finan christian, discharge planning, medical issues, relationships, etc)? Yes. COMPREHENSION - STEP 2: Does the patient require help to understand questions or statements about basic needs or ideas (such as hunger, thirst, sleep, safety, daily schedule, room location, or discomfort) half or more of the t sari? No. COMPREHENSION - STEP 3: How often does the patient need help to understand directions and conversation about basic needs? Les s than 10% of the time COMPREHENSION - SCORE: 5-SUP EXPRESSION EXPRESSION: TYPE: Both EXPRESSION - STEP 1: Does the patient require help expressing complex and abstract ideas (such as current events, finances , discharge planning, medical issues, relationships, etc)? Yes. EXPRESSION - STEP 2: Does the patient require help to express basic necessities or ideas (such as hunger, thirst, sleep, s afety, daily schedule, room location, or discomfort) half or more of the time? No. EXPRESSION - STEP 3: How often does the patient need help to express directions and conversation about basic needs? Less t [place] 10% of the time EXPRESSION - SCORE: 5-SUP SOCIAL INTERACTION: SOCIAL INTERACTION - STEP 1: Does the patient require a helper to interact with others in social and therapeutic situations? No. SOCIAL INTERACTION - STEP 2: Does the patient need extra time in social situations, OR does s/he interact with staff, other patien ts, and family members ONLY in structured environments, OR does s/he require medication for social in teraction? Yes, patient needs extra time SOCIAL INTERACTION - SCORE: 6-MANOLO PROBLEM SOLVING: PROBLEM SOLVING - STEP 1: Does the patient need help to solve complex problems such as managing a checking account or confronti ng interpersonal problems? Yes. PROBLEM SOLVING - STEP 2: Does the patient solve basic routine problems half or more of the time? Yes. PROBLEM SOLVING - STEP 3: How often does the patient need help to solve basic routine problems? Less than 10% of the time PROBLEM SOLVING - SCORE: 5-SUP MEMORY: MEMORY - STEP 1: Does the patient need help to remember frequently encountered people, daily routines, and executing r equests? Yes. MEMORY - STEP 2: How often does the patient need help to remember frequently encountered people, daily routines, and e xecuting requests? Less than 10% of the time MEMORY - SCORE: 5-SUP SIGNATURE PANEL: The following modified sections: Eating - Score, Grooming - Score, Bathing - Score, Dressing - Upper Body - Score, Dressing - Lower Body - Score, Dressing - Lower Body - Comments:, Toileting - Score, Bl adder Management - Score, Bowel Management - Score, Transfers: Bed, Chair, Wheelchair - Score, Transf ers: Toilet - Score, Transfers: Shower - Score, Transfers: Tub - Score, Locomotion: Walk - Score, Loc omotion: Wheelchair - Score, Comprehension - Score, Expression - Score, Social Interaction - Score, P roblem Solving - Score, Memory - Score were [electronically] signed by Ingrid Lackey C.N.A. on [facility] christine 2017 14:58:39 [facility]-0500 (Central Daylight Time)
[2018-03-17] MEDS ORDERED: PROMOD 30 ML DOSE PO SCH (20:00)
[2018-03-17] MEDS: RISPERIDONE 0.25 MG TABLET PO SCH (20:42)
[2018-03-17] MEDS: DOCUSATE NA/SENNA CONC 1 TAB PO SCH (20:43)
[2018-03-17] MEDS: ATORVASTATIN 40 MG TAB PO SCH (20:43)
[2018-03-17] MEDS: ENSURE HIGH PROTEIN 237 ML CAN PO SCH (20:43)
[2018-03-17] MEDS: TRAZODONE 50 MG TABLET PO PRN (21:18)
[2018-03-18] MEDS: ALBUTEROL 2.5 MG/3 ML NEB SOL NEB SCH ×4 (01:53→19:30)
[2018-03-18] MEDS: IPRATROPIUM BROM 0.5MG/2.5ML NEB SCH ×4 (01:53→19:30)
--- NOTE | 2018-03-18 04:15 | FAST ---
SHIFT START DATE/TIME: 03/17/2018 19:00 (CDT) SHIFT END DATE/TIME: 03/18/2018 07:00 (CDT) NAME JOSE ALEXANDRA DATE OF : 1935 DATE OF ADMISSION: 03/15/2018 13:31 (CDT) PHONE: AGE: 82 N# [id number] GENDER: Male ENCOUNTER PHYSICIAN: Dr. Luca Casas M.D. ADMISSION DIAGNOSIS: - Orthopaedic Disorders 08 - Other Orthopaedic (08.9) R shoulder dislocation. EATING: EATING - STEP 1: Does the patient require assistance when eating? Yes. EATING - STEP 2: Does the patient require the assistance of a helper? Yes. EATING - STEP 3: Does the patient perform half or more of the eating tasks? Yes. EATING - STEP 4: Does the patient need only supervision, cuing, coaxing OR help to apply an orthosis OR help to cut fo od, open containers, pour liquids, or butter bread? Yes. EATING - SCORE: 5-SUP GROOMING: Wash, rinse, and dry face Wash, rinse, and dry hands GROOMING - STEP 1: Does the patient require assistance when grooming? Yes. GROOMING - STEP 2: Does the patient require the assistance of a helper? Yes. GROOMING - STEP 3: How much assistance does the patient require from the helper? More than incidental help GROOMING - STEP 4: How many grooming tasks does the patient perform WITHOUT the assistance of the helper? Half or more o f the grooming tasks GROOMING - SCORE: 3-MOD BATHING: Activity did not occur on this shift BATHING - SCORE: 0-UNK DRESSING - UPPER BODY: Patient is not dressing in public clothing ARTICLES SCORE Total number of steps: 0 DRESSING - UPPER BODY - SCORE: 0-UNK DRESSING - LOWER BODY: Patient is not dressing in public clothing ARTICLES SCORE Total number of steps: 0 DRESSING - LOWER BODY - SCORE: 0-UNK TOILETING: TOILETING - STEP 1: Does the patient require assistance with toileting? Yes. TOILETING - STEP 2: Does the patient require the assistance of a helper? Yes. TOILETING - STEP 3: How much assistance does the patient require from the helper? Hands-on assistance from the helper TOILETING - STEP 4: Of the 3 tasks: 1) Adjusting clothing prior to use, 2) Cleansing of perineal area, 3) Adjusting clot aleksandr after use; How many tasks does the patient perform WITHOUT assistance of the helper? No tasks; h corrine performs all three tasks TOILETING - SCORE: 1-DEP BLADDER MANAGEMENT: [place] removes incontinent device (Depends, pull ups, etc.); cleans the patient after accident / inco ntinent episode; and, applies new incontinent device. BLADDER MANAGEMENT - SCORE: 1-DEP BLADDER MANAGEMENT - FREQUENCY OF ACCIDENTS: BLADDER MANAGEMENT(FA) - STEP 1: How many accidents has the patient had during the current shift? 2 BOWEL MANAGEMENT: BOWEL MANAGEMENT - STEP 1: Does the patient control bowels completely and intentionally without equipment devices or medications AND is always continent? No. BOWEL MANAGEMENT - STEP 2: Does the patient require the assistance of a helper? Yes. BOWEL MANAGEMENT - STEP 3: How much assistance does the patient require from the helper? Patient requires moderate assistance - performs 50% to 74% of bowel management tasks BOWEL MANAGEMENT - SCORE: 3-MOD BOWEL MANAGEMENT - FREQUENCY OF ACCIDENTS: BOWEL MANAGEMENT(FA) - STEP 1: How many accidents has the patient had during the current shift? 0 TRANSFERS: BED, CHAIR, WHEELCHAIR: TRANSFERS: BED, CHAIR, WHEELCHAIR - STEP 1: Does the patient require assistance with bed, chair, or wheelchair transfers? Yes. TRANSFERS: BED, CHAIR, WHEELCHAIR - STEP 2: Does the patient require the assistance of a helper? Yes. TRANSFERS: BED, CHAIR, WHEELCHAIR - STEP 3: How much assistance does the patient require from the helper? Lifting of the legs TRANSFERS: BED, CHAIR, WHEELCHAIR - STEP 4: How many legs does the patient require the helper to lift? both legs TRANSFERS: BED, CHAIR, WHEELCHAIR - SCORE: 3-MOD TRANSFERS: TOILET: TRANSFERS: TOILET - STEP 1: Does the patient require assistance with toilet transfers? Yes. TRANSFERS: TOILET - STEP 2: Does the patient require the assistance of a helper? Yes. TRANSFERS: TOILET - STEP 3: How much assistance does the patient require from the helper? Patient performs less than half of the transferring tasks TRANSFERS: TOILET - STEP 4: Does the patient require total assistance for the toilet transfer such as the helper doing basically all the lifting? No. TRANSFERS: TOILET - SCORE: 2-MAX TRANSFERS: SHOWER: Activity did not occur on this shift TRANSFERS: SHOWER - SCORE: 0-UNK TRANSFERS: TUB: Activity did not occur on this shift TRANSFERS: TUB - SCORE: 0-UNK LOCOMOTION: WALK: Activity did not occur on this shift LOCOMOTION: WALK - SCORE: 0-UNK LOCOMOTION: WHEELCHAIR: Activity did not occur on this shift LOCOMOTION: WHEELCHAIR - SCORE: 0-UNK COMPREHENSION: COMPREHENSION: TYPE: Both COMPREHENSION - STEP 1: Does the patient require help to understand complex and abstract ideas (such as current events, finan christian, discharge planning, medical issues, relationships, etc)? Yes. COMPREHENSION - STEP 2: Does the patient require help to understand questions or statements about basic needs or ideas (such as hunger, thirst, sleep, safety, daily schedule, room location, or discomfort) half or more of the t sari? No. COMPREHENSION - STEP 3: How often does the patient need help to understand directions and conversation about basic needs? 25% - 49% of the time COMPREHENSION - SCORE: 3-MOD EXPRESSION EXPRESSION: TYPE: Both EXPRESSION - STEP 1: Does the patient require help expressing complex and abstract ideas (such as current events, finances , discharge planning, medical issues, relationships, etc)? Yes. EXPRESSION - STEP 2: Does the patient require help to express basic necessities or ideas (such as hunger, thirst, sleep, s afety, daily schedule, room location, or discomfort) half or more of the time? No. EXPRESSION - STEP 3: How often does the patient need help to express directions and conversation about basic needs? 25-49% of the time EXPRESSION - SCORE: 3-MOD SOCIAL INTERACTION: SOCIAL INTERACTION - STEP 1: Does the patient require a helper to interact with others in social and therapeutic situations? Yes. SOCIAL INTERACTION - STEP 2: Does the patient interact appropriately half or more of the time? Yes. SOCIAL INTERACTION - STEP 3: How often does the patient need help to interact appropriately? 25-49% of the time SOCIAL INTERACTION - SCORE: 3-MOD PROBLEM SOLVING: PROBLEM SOLVING - STEP 1: Does the patient need help to solve complex problems such as managing a checking account or confronti ng interpersonal problems? Yes. PROBLEM SOLVING - STEP 2: Does the patient solve basic routine problems half or more of the time? No. PROBLEM SOLVING - STEP 3: Does the patient need help to solve problems all the time or is s/he unable to solve problems? No. Jhon ranulfo can sometimes solve problems PROBLEM SOLVING - SCORE: 2-MAX MEMORY: MEMORY - STEP 1: Does the patient need help to remember frequently encountered people, daily routines, and executing r equests? Yes. MEMORY - STEP 2: How often does the patient need help to remember frequently encountered people, daily routines, and e xecuting requests? More than 50% of the time MEMORY - STEP 3: Does the patient need help to remember all of the time OR does s/he not effectively recognize and rem ember? No. Patient does not need help all the time MEMORY - SCORE: 2-MAX SIGNATURE PANEL: The following modified sections: Eating - Score, Grooming - Score, Bathing - Score, Dressing - Upper Body - Score, Dressing - Lower Body - Score, Toileting - Score, Bladder Management - Score, Bowel Man agement - Score, Transfers: Bed, Chair, Wheelchair - Score, Transfers: Toilet - Score, Transfers: Leonela wer - Score, Transfers: Tub - Score, Locomotion: Walk - Score, Locomotion: Wheelchair - Score, Compre hension - Score, Expression - Score, Social Interaction - Score, Problem Solving - Score, Memory - Sc ore were [electronically] signed by Georgette Gonzalez CGiuliaNIsha on SunMar 18 2018 03:17:34 T-0500 ( Central Daylight Time)
[2018-03-18] MEDS: PANTOPRAZOLE 40MG TABLET PO SCH (07:15)
[2018-03-18] MEDS: HEPARIN 5000 UNIT/ML 1 ML VIAL SQ SCH ×2 (08:00→22:09)
[2018-03-18] MEDS: levoFLOXacin 500 MG TAB PO SCH (08:00)
[2018-03-18] MEDS: FERROUS SULFATE 325 MG TAB PO SCH ×2 (08:47→20:09)
[2018-03-18] MEDS: CODEINE 30MG/APAP 300MG TAB PO PRN ×2 (08:48→20:09)
[2018-03-18] MEDS: GABAPENTIN 300 MG CAP PO SCH ×2 (08:48→20:09)
[2018-03-18] MEDS: ASPIRIN EC 81 MG TAB PO SCH (08:49)
[2018-03-18] MEDS: DOCOSAHEXANOIC AC/EPA 1000 MG PO SCH (08:49)
[2018-03-18] MEDS: FINASTERIDE 5 MG TAB PO SCH (08:50)
[2018-03-18] MEDS: POLYETHYL GLY 3350 17 GM/DOSE PO PRN (08:51)
[2018-03-18] MEDS: ENSURE HIGH PROTEIN 237 ML CAN PO SCH ×2 (08:55→20:13)
--- NOTE | 2018-03-18 10:33 | EKG ---
Test Date: 2018-03-17 Test Time: 01:56:24 [place]: RT-O MEASUREMENT RESULTS: Intervals: Rate: 90 VA: 180 QRSD: 110 QT: 378 QTc: 462 [place]: P: 75 VA: 180 QRS: -39 T: 73 INTERPRETIVE STATEMENTS: Sinus rhythm with premature atrial complexes Left axis deviation Abnormal ECG Compared to ECG 03/01/2018 16:46:48 Atrial premature complex(es) now present Electronically Signed On 03-18-18 10:32:36 CDT by Antwan Chambers
--- NOTE | 2018-03-18 11:19 | RAD REPORT ---
EXAM DESCRIPTION: RAD - Barium Swallow Modified - 03/18/2018 11:01 am CLINICAL HISTORY: Aspiration pneumonia COMPARISON: None. TECHNIQUE: The patient was given liquid, semi-solid and solid forms of barium. Lateral view fluorosc opic imaging was performed in conjunction with [facility]. FINDINGS: Patient demonstrated delayed initiation of swallowing. Significant residual contrast noted in the valleculae and piriform sinuses. No aspiration was observed. However, there was laryngeal pen etration the patient was unable to fully clear. IMPRESSION: Modified barium swallow findings as detailed above and on speech pathology report.
--- NOTE | 2018-03-18 15:08 | FAST ---
ENCOUNTER DATE AND TIME: 03/15/2018 08:00 (CDT) NAME JOSE ALEXANDRA DATE OF : 1935 DATE OF ADMISSION: 03/15/2018 13:31 (CDT) PHONE: AGE: 82 N# [id number] GENDER: Male ENCOUNTER PHYSICIAN: Dr. Luca Casas M.D. ADMISSION DIAGNOSIS: - Orthopaedic Disorders 08 - Other Orthopaedic (08.9) R shoulder dislocation. EATING: Activity did not occur on this shift EATING - SCORE: 0-UNK GROOMING: Comb/brush hair Wash, rinse, and dry face Wash, rinse, and dry hands GROOMING - STEP 1: Does the patient require assistance when grooming? No. GROOMING - SCORE: 7-IND BATHING: Abdomen Buttocks Chest Left arm Left lower leg and foot Left upper leg Perineal area Right lower leg and foot Right upper leg BATHING - STEP 1: Does the patient require assistance when bathing? Yes. BATHING - STEP 2: Does the patient require the assistance of a helper? Yes. BATHING - STEP 3: How much assistance does the patient require from the helper? Only incidental help such as placement of a wash cloth in his/her hand a few times as s/he bathes OR help to bathe just one or two areas of the body BATHING - SCORE: 4-MIN DRESSING - UPPER BODY: Patient is not dressing in public clothing ARTICLES SCORE Total number of steps: 0 DRESSING - UPPER BODY - SCORE: 0-UNK DRESSING - LOWER BODY: Elastic waist pants (three steps) Sock - Left foot (one step) Sock - Right foot (one step) Underwear (three steps) ARTICLES SCORE Total number of steps: 8 DRESSING - LOWER BODY - STEP 1: Does the patient require help when dressing below the waist? Yes. DRESSING - LOWER BODY - STEP 2: Does the patient require the assistance of a helper? Yes. DRESSING - LOWER BODY - STEP 3: Does the helper touch the patient while dressing? Yes. DRESSING - LOWER BODY - STEP 4: How many of the total steps does the patient complete on his/her own? 2 DRESSING - LOWER BODY - STEP 5: Does patient require total assistance for dressing below the waist such as the helper holding clothin g and performing basically all the activities? No. DRESSING - LOWER BODY - SCORE: 2-MAX TOILETING: Activity did not occur on this shift TOILETING - SCORE: 0-UNK BLADDER MANAGEMENT: Activity did not occur on this shift BLADDER MANAGEMENT - SCORE: 7-IND BOWEL MANAGEMENT: Activity did not occur on this shift BOWEL MANAGEMENT - SCORE: 7-IND TRANSFERS: BED, CHAIR, WHEELCHAIR: Activity did not occur on this shift TRANSFERS: BED, CHAIR, WHEELCHAIR - SCORE: 0-UNK TRANSFERS: TOILET: Activity did not occur on this shift TRANSFERS: TOILET - SCORE: 0-UNK TRANSFERS: SHOWER: TRANSFERS: SHOWER - STEP 1: Does the patient require assistance with shower transfers? Yes. TRANSFERS: SHOWER - STEP 2: Does the patient require the assistance of a helper? Yes. TRANSFERS: SHOWER - STEP 3: How much assistance does the patient require from the helper? More than incidental help TRANSFERS: SHOWER - STEP 4: How much more help does the patient require from the helper? Lifting the patient up AND down from the wheelchair onto the shower chair TRANSFERS: SHOWER - SCORE: 2-MAX TRANSFERS: TUB: Activity did not occur on this shift TRANSFERS: TUB - SCORE: 0-UNK LOCOMOTION: WALK: Activity did not occur on this shift LOCOMOTION: WALK - SCORE: 0-UNK LOCOMOTION: WHEELCHAIR: Activity did not occur on this shift LOCOMOTION: WHEELCHAIR - SCORE: 0-UNK LOCOMOTION: STAIRS: Activity did not occur on this shift LOCOMOTION: STAIRS - SCORE: 0-UNK COMPREHENSION: COMPREHENSION: TYPE: Both COMPREHENSION - STEP 1: Does the patient require help to understand complex and abstract ideas (such as current events, finan christian, discharge planning, medical issues, relationships, etc)? No. COMPREHENSION - STEP 2: Does the patient need extra time, require an assistive device (such as glasses, hearing aids, or an a ugmentative communication system), OR does s/he have mild difficulty expressing complex and abstract ideas (including mild dysarthria or mild word-finding problems)? Yes. COMPREHENSION - SCORE: 6-MANOLO EXPRESSION EXPRESSION: TYPE: Both EXPRESSION - STEP 1: Does the patient require help expressing complex and abstract ideas (such as current events, finances , discharge planning, medical issues, relationships, etc)? No. EXPRESSION - STEP 2: Does the patient need extra time, require an assistive device (such as augmentive communication syste m or a communication board), OR does s/he have mild difficulty expressing complex and abstract ideas (including mild dysarthria or mild word-find problems)? Yes. EXPRESSION - SCORE: 6-MANOLO SOCIAL INTERACTION: SOCIAL INTERACTION - STEP 1: Does the patient require a helper to interact with others in social and therapeutic situations? No. SOCIAL INTERACTION - STEP 2: Does the patient need extra time in social situations, OR does s/he interact with staff, other patien ts, and family members ONLY in structured environments, OR does s/he require medication for social in teraction? Yes, patient needs extra time SOCIAL INTERACTION - SCORE: 6-MANOLO PROBLEM SOLVING: PROBLEM SOLVING - STEP 1: Does the patient need help to solve complex problems such as managing a checking account or confronti ng interpersonal problems? Yes. PROBLEM SOLVING - STEP 2: Does the patient solve basic routine problems half or more of the time? Yes. PROBLEM SOLVING - STEP 3: How often does the patient need help to solve basic routine problems? 10%-24% of the time PROBLEM SOLVING - SCORE: 4-MIN MEMORY: MEMORY - STEP 1: Does the patient need help to remember frequently encountered people, daily routines, and executing r equests? Yes. MEMORY - STEP 2: How often does the patient need help to remember frequently encountered people, daily routines, and e xecuting requests? 10% - 24% of the time MEMORY - SCORE: 4-MIN SIGNATURE PANEL: The following modified sections: Eating - Score, Grooming - Score, Bathing - Score, Dressing - Upper Body - Score, Dressing - Lower Body - Score, Toileting - Score, Transfers: Bed, Chair, Wheelchair - S core, Transfers: Toilet - Score, Transfers: Tub - Score, Transfers: Shower - Score, Comprehension - S core, Expression - Score, Social Interaction - Score, Problem Solving - Score, Memory - Score were [e lectronically] signed by Dawna Chapa OT on SunMar 18 2018 14:10:34 T-0500 ([facility])
--- NOTE | 2018-03-18 15:35 | FAST ---
ENCOUNTER DATE AND TIME: 03/18/2018 08:00 (CDT) NAME JOSE ALEXANDRA DATE OF : 1935 DATE OF ADMISSION: 03/15/2018 13:31 (CDT) PHONE: AGE: 82 N# [id number] GENDER: Male ENCOUNTER PHYSICIAN: Dr. Luca Casas M.D. ADMISSION DIAGNOSIS: - Orthopaedic Disorders 08 - Other Orthopaedic (08.9) R shoulder dislocation. EATING: Activity did not occur on this shift EATING - SCORE: 0-UNK GROOMING: Comb/brush hair Wash, rinse, and dry face Wash, rinse, and dry hands GROOMING - STEP 1: Does the patient require assistance when grooming? Yes. GROOMING - STEP 2: Does the patient require the assistance of a helper? Yes. GROOMING - STEP 3: How much assistance does the patient require from the helper? Only prior equipment preparation/set up from the helper GROOMING - SCORE: 5-SUP BATHING: Abdomen Buttocks Chest Left arm Left lower leg and foot Left upper leg Perineal area Right lower leg and foot Right upper leg BATHING - STEP 1: Does the patient require assistance when bathing? Yes. BATHING - STEP 2: Does the patient require the assistance of a helper? Yes. BATHING - STEP 3: How much assistance does the patient require from the helper? More than just incidental help BATHING - STEP 4: What percent of the body parts did the patient bathe WITHOUT the helper? Half or more of the body par ts BATHING - SCORE: 3-MOD DRESSING - UPPER BODY: Patient is not dressing in public clothing ARTICLES SCORE Total number of steps: 0 DRESSING - UPPER BODY - SCORE: 0-UNK DRESSING - LOWER BODY: Elastic waist pants (three steps) Sock - Left foot (one step) Sock - Right foot (one step) Underwear (three steps) ARTICLES SCORE Total number of steps: 8 DRESSING - LOWER BODY - STEP 1: Does the patient require help when dressing below the waist? Yes. DRESSING - LOWER BODY - STEP 2: Does the patient require the assistance of a helper? Yes. DRESSING - LOWER BODY - STEP 3: Does the helper touch the patient while dressing? Yes. DRESSING - LOWER BODY - STEP 4: How many of the total steps does the patient complete on his/her own? 0 DRESSING - LOWER BODY - STEP 5: Does patient require total assistance for dressing below the waist such as the helper holding clothin g and performing basically all the activities? Yes. DRESSING - LOWER BODY - SCORE: 1-DEP TOILETING: Activity did not occur on this shift TOILETING - SCORE: 0-UNK BLADDER MANAGEMENT: Activity did not occur on this shift BLADDER MANAGEMENT - SCORE: 7-IND BOWEL MANAGEMENT: Activity did not occur on this shift BOWEL MANAGEMENT - SCORE: 7-IND TRANSFERS: BED, CHAIR, WHEELCHAIR: Activity did not occur on this shift TRANSFERS: BED, CHAIR, WHEELCHAIR - SCORE: 0-UNK TRANSFERS: TOILET: Activity did not occur on this shift TRANSFERS: TOILET - SCORE: 0-UNK TRANSFERS: SHOWER: TRANSFERS: SHOWER - STEP 1: Does the patient require assistance with shower transfers? Yes. TRANSFERS: SHOWER - STEP 2: Does the patient require the assistance of a helper? Yes. TRANSFERS: SHOWER - STEP 3: How much assistance does the patient require from the helper? Only supervision, cuing, coaxing, or he lp to set out transfer equipment or to lock brakes and/or lift foot rests TRANSFERS: SHOWER - SCORE: 5-SUP TRANSFERS: TUB: Activity did not occur on this shift TRANSFERS: TUB - SCORE: 0-UNK LOCOMOTION: WALK: Activity did not occur on this shift LOCOMOTION: WALK - SCORE: 0-UNK LOCOMOTION: WHEELCHAIR: Activity did not occur on this shift LOCOMOTION: WHEELCHAIR - SCORE: 0-UNK LOCOMOTION: STAIRS: Activity did not occur on this shift LOCOMOTION: STAIRS - SCORE: 0-UNK COMPREHENSION: COMPREHENSION: TYPE: Both COMPREHENSION - STEP 1: Does the patient require help to understand complex and abstract ideas (such as current events, finan christian, discharge planning, medical issues, relationships, etc)? Yes. COMPREHENSION - STEP 2: Does the patient require help to understand questions or statements about basic needs or ideas (such as hunger, thirst, sleep, safety, daily schedule, room location, or discomfort) half or more of the t sari? No. COMPREHENSION - STEP 3: How often does the patient need help to understand directions and conversation about basic needs? Les s than 10% of the time COMPREHENSION - SCORE: 5-SUP EXPRESSION EXPRESSION: TYPE: Both EXPRESSION - STEP 1: Does the patient require help expressing complex and abstract ideas (such as current events, finances , discharge planning, medical issues, relationships, etc)? Yes. EXPRESSION - STEP 2: Does the patient require help to express basic necessities or ideas (such as hunger, thirst, sleep, s afety, daily schedule, room location, or discomfort) half or more of the time? No. EXPRESSION - STEP 3: How often does the patient need help to express directions and conversation about basic needs? Less t [place] 10% of the time EXPRESSION - SCORE: 5-SUP SOCIAL INTERACTION: SOCIAL INTERACTION - STEP 1: Does the patient require a helper to interact with others in social and therapeutic situations? Yes. SOCIAL INTERACTION - STEP 2: Does the patient interact appropriately half or more of the time? Yes. SOCIAL INTERACTION - STEP 3: How often does the patient need help to interact appropriately? Less than 10% of the time SOCIAL INTERACTION - SCORE: 5-SUP PROBLEM SOLVING: PROBLEM SOLVING - STEP 1: Does the patient need help to solve complex problems such as managing a checking account or confronti ng interpersonal problems? Yes. PROBLEM SOLVING - STEP 2: Does the patient solve basic routine problems half or more of the time? Yes. PROBLEM SOLVING - STEP 3: How often does the patient need help to solve basic routine problems? 10%-24% of the time PROBLEM SOLVING - SCORE: 4-MIN MEMORY: MEMORY - STEP 1: Does the patient need help to remember frequently encountered people, daily routines, and executing r equests? Yes. MEMORY - STEP 2: How often does the patient need help to remember frequently encountered people, daily routines, and e xecuting requests? 10% - 24% of the time MEMORY - SCORE: 4-MIN SIGNATURE PANEL: The following modified sections: Eating - Score, Grooming - Score, Bathing - Score, Dressing - Upper Body - Score, Dressing - Lower Body - Score, Toileting - Score, Transfers: Bed, Chair, Wheelchair - S core, Transfers: Toilet - Score, Transfers: Tub - Score, Transfers: Shower - Score, Comprehension - S core, Expression - Score, Social Interaction - Score, Problem Solving - Score, Memory - Score were [e lectronically] signed by Dawna Chapa OT on SunMar 18 2018 14:37:09 [facility]-0500 ([facility])
--- NOTE | 2018-03-18 16:02 | FAST ---
SHIFT START DATE/TIME: 03/18/2018 07:00 (CDT) SHIFT END DATE/TIME: 03/18/2018 19:00 (CDT) NAME JOSE ALEXANDRA DATE OF : 1935 DATE OF ADMISSION: 03/15/2018 13:31 (CDT) PHONE: AGE: 82 N# [id number] GENDER: Male ENCOUNTER PHYSICIAN: Dr. Luca Casas M.D. ADMISSION DIAGNOSIS: - Orthopaedic Disorders 08 - Other Orthopaedic (08.9) R shoulder dislocation. EATING: EATING - STEP 1: Does the patient require assistance when eating? Yes. EATING - STEP 2: Does the patient require the assistance of a helper? Yes. EATING - STEP 3: Does the patient perform half or more of the eating tasks? Yes. EATING - STEP 4: Does the patient need only supervision, cuing, coaxing OR help to apply an orthosis OR help to cut fo od, open containers, pour liquids, or butter bread? Yes. EATING - SCORE: 5-SUP GROOMING: Comb/brush hair Oral care GROOMING - STEP 1: Does the patient require assistance when grooming? Yes. GROOMING - STEP 2: Does the patient require the assistance of a helper? Yes. GROOMING - STEP 3: How much assistance does the patient require from the helper? Only prior equipment preparation/set up from the helper GROOMING - SCORE: 5-SUP BATHING: Activity did not occur on this shift BATHING - SCORE: 0-UNK DRESSING - UPPER BODY: Activity did not occur on this shift ARTICLES SCORE Total number of steps: 0 DRESSING - UPPER BODY - SCORE: 0-UNK DRESSING - LOWER BODY: Activity did not occur on this shift ARTICLES SCORE Total number of steps: 0 DRESSING - LOWER BODY - SCORE: 0-UNK TOILETING: TOILETING - STEP 1: Does the patient require assistance with toileting? Yes. TOILETING - STEP 2: Does the patient require the assistance of a helper? Yes. TOILETING - STEP 3: How much assistance does the patient require from the helper? Hands-on assistance from the helper TOILETING - STEP 4: Of the 3 tasks: 1) Adjusting clothing prior to use, 2) Cleansing of perineal area, 3) Adjusting clot aleksandr after use; How many tasks does the patient perform WITHOUT assistance of the helper? Two tasks TOILETING - SCORE: 3-MOD BLADDER MANAGEMENT: BLADDER MANAGEMENT - STEP 1: Does the patient control the bladder completely and intentionally without equipment or devices or med ications, and is always continent? No. BLADDER MANAGEMENT - STEP 2: Does the patient require the assistance of a helper? No, patient requires and independently uses an a ssistive device, such as a urinal, bedpan, bedside commode, catheter, absorbent pad, or collecting de vice BLADDER MANAGEMENT - SCORE: 6-MANOLO BOWEL MANAGEMENT: BOWEL MANAGEMENT - STEP 1: Does the patient control bowels completely and intentionally without equipment devices or medications AND is always continent? No. BOWEL MANAGEMENT - STEP 2: Does the patient require the assistance of a helper? No, patient requires and manages independently a n assistive device such as a bedpan, bedside commode, absorbent pad, incontinent device, or collectin g device BOWEL MANAGEMENT - SCORE: 6-MANOLO TRANSFERS: BED, CHAIR, WHEELCHAIR: TRANSFERS: BED, CHAIR, WHEELCHAIR - STEP 1: Does the patient require assistance with bed, chair, or wheelchair transfers? Yes. TRANSFERS: BED, CHAIR, WHEELCHAIR - STEP 2: Does the patient require the assistance of a helper? Yes. TRANSFERS: BED, CHAIR, WHEELCHAIR - STEP 3: How much assistance does the patient require from the helper? Steadying/guiding assistance TRANSFERS: BED, CHAIR, WHEELCHAIR - SCORE: 4-MIN TRANSFERS: TOILET: TRANSFERS: TOILET - STEP 1: Does the patient require assistance with toilet transfers? Yes. TRANSFERS: TOILET - STEP 2: Does the patient require the assistance of a helper? Yes. TRANSFERS: TOILET - STEP 3: How much assistance does the patient require from the helper? Patient performs half or more of the tr ansferring tasks TRANSFERS: TOILET - STEP 4: Does the patient need only incidental help such as contact guard or steadying during toilet transfer? Yes. TRANSFERS: TOILET - SCORE: 4-MIN TRANSFERS: SHOWER: Activity did not occur on this shift TRANSFERS: SHOWER - SCORE: 0-UNK TRANSFERS: TUB: Activity did not occur on this shift TRANSFERS: TUB - SCORE: 0-UNK LOCOMOTION: WALK: Activity did not occur on this shift LOCOMOTION: WALK - SCORE: 0-UNK LOCOMOTION: WHEELCHAIR: Activity did not occur on this shift LOCOMOTION: WHEELCHAIR - SCORE: 0-UNK COMPREHENSION: COMPREHENSION - SCORE: 0-UNK EXPRESSION EXPRESSION - SCORE: 0-UNK SOCIAL INTERACTION: SOCIAL INTERACTION - SCORE: 0-UNK PROBLEM SOLVING: PROBLEM SOLVING - SCORE: 0-UNK MEMORY: MEMORY - SCORE: 0-UNK SIGNATURE PANEL: The following modified sections: Eating - Score, Grooming - Score, Bathing - Score, Dressing - Upper Body - Score, Dressing - Lower Body - Score, Toileting - Score, Bladder Management - Score, Bowel Man agement - Score, Transfers: Bed, Chair, Wheelchair - Score, Transfers: Toilet - Score, Transfers: Leonela wer - Score, Transfers: Tub - Score, Locomotion: Walk - Score, Locomotion: Wheelchair - Score, Compre hension - Score, Expression - Score, Social Interaction - Score, Problem Solving - Score, Memory - Sc ore were [electronically] signed by Morgan Orta on SunMar 18 2018 15:03:44 GMT-0500 (Central Daylight Time)
[2018-03-18] MEDS: DOCUSATE NA/SENNA CONC 1 TAB PO SCH (20:10)
[2018-03-18] MEDS: ATORVASTATIN 40 MG TAB PO SCH (20:55)
[2018-03-18] MEDS: RISPERIDONE 0.25 MG TABLET PO SCH (20:55)
--- NOTE | 2018-03-18 21:07 | R.PN ---
ENCOUNTER DATE AND TIME: 03/18/2018 19:57 (CDT) NAME JOSE ALEXANDRA DATE OF : 1935 DATE OF ADMISSION: 03/15/2018 13:31 (CDT) R shoulder dislocationCHIEF COMPLAINT: Right shoulder dislocation, dysphagia, aspiration of thin liquid SUBJECTIVE: Pt denied any Shortness of Breath. Pt denied any depression. Patient has a productive cough with chest x-ray showing aspiration pneumonia. He is on Levaquin 500 m g daily for 10 days. Barium swallow today also showed aspiration of thin liquid. Now on nectar thicke ghulam consistence. Working with speech therapy. Ambulated 145' with minimum assistance without an esha tive device. VITAL SIGNS Temperature: 97.5 F SBP/DBP: 137/91 Pulse: 65 Resp: 18 Vital signs stable, afebrile MEDICATION ALLERGIES: Nsaids ENVIRONMENTAL ALLERGIES: None Known - Substance Allergies None Known - Other Allergies None Known NURSING: - Shower allowing shower - Skin care per protocol PRECAUTIONS: - Weight Bearing Precaution NWB right UE - Fall Precaution Bed and chair alarm ACTIVITIES OOB only with supervision THERAPIES: - Occupational Therapy Evaluate and Treat. - Physical Therapy Evaluate and Treat. PHYSICAL EXAM - Gen Alert and awake Lying in bed No apparent distress Oriented to: person, time, and place - Vital Signs Temperature: 97.5 F SBP/DBP: 116/60 Pulse: 79 Resp: 16 - Skin No breakdowns No numbness - Eyes No abnormalities - ENMT No abnormalities - Neck No abnormalities - CVS RRR - Chest Mildly decreased breath sounds bilaterally.with productive cough - Resp + upper airway ronchi - Abd +bowel sounds - GI Soft Deferred - No abnormalities - Ext no edema - MSK Normal bulk and tone in the upper and lower extremities - Neuro Moderate right upper extremity weakness with right arm in a sling. - Psych No abnormalities ASSESSMENT: Pt. is a 82 yo Right-handed white male.On 03/05/2018 he was admitted to [facility] with diagnosis R shoulde r dislocation.His impairment category is Orthopaedic Disorders 08 - Other Orthopaedic (08.9).Pre-mor bidly, Pt. was independent/mod-I in Self-Care, Locomotion, Sphincter Control, Transfers Control, Comm unication, and Social Cognition; and he had good Sphincter Control.Currently, he has deficits of Self -Care, Locomotion, Endurance, Safety Awareness, Transfers Control, and Balance.Pt. is now referred to [facility] for acute in-patient rehabilitation in order to maximize patient's functional independence in activities of daily living, strength, ROM, and mobility.- Rehab Goal Patient has realistic goal of being discharged at assistance level 6-Cesar to reside at Home with Fam heriberto/Relatives. MDM/PLAN: - Diet Type Continue Regular - Physical Therapy Decreased range of motion - to improve, our physical therapists will perform initial evaluation of p t's status upon admission and devise an individualized program for increasing patient's Range of Lucian on. Gait dysfunction - to improve, our physical therapists will perform initial evaluation of pt's statu s upon admission and devise an individualized program for Gait Training, and Wheel Chair mobility Inability to transfer - to improve, our physical therapists will perform initial evaluation of pt's status upon admission and devise an individualized program for Bed mobility Need for home safety evaluation - to improve, our physical therapists will perform initial evaluatio n of pt's status upon admission and devise an individualized program for Home Evaluation Need in caregiver upon discharge - to improve, our physical therapists will perform initial evaluati on of pt's status upon admission and devise an individualized program for Caregiver Training New precaution - to improve, our physical therapists will perform initial evaluation of pt's status upon admission and devise an individualized program for Patient precaution education Poor balance - to improve, our physical therapists will perform initial evaluation of pt's status up on admission and devise an individualized program for Balance Training Poor endurance - to improve, our physical therapists will perform initial evaluation of pt's status upon admission and devise an individualized program for Endurance Training Weakness - to improve, our physical therapists will perform initial evaluation of pt's status upon a dmission and devise an individualized program for Aquatic Therapy, Neuromuscular Reeducation, and Str engthening Achieving independence - to improve, our physical therapists will perform initial evaluation of pt's status upon admission and devise an individualized program for Community Reintegration Activities - Diet - Liquid Texture Continue Regular - Tube Feed Continue N/A - Weight Bearing Precaution NWB right UE - Fall Precaution Bed and chair alarm - Skin care per protocol - Diet - Solid Texture Continue Regular - Shower allowing shower - Occupational Therapy ADL deficits - to improve, our occupation therapists will perform initial evaluation of pt's status upon admission and devise an individualized program for Bathing, Bed mobility, Community Reintegratio n, Cooking, Dressing, Eating, Fine Motor Skills, Grooming, Homemaking, Kitchen Mobility, Laundry, Pat ient Education, Safety Awareness, Splinting - Positioning, Transfers(Toilet, Tub, Shower), and Wheel Chair Management Need for personal care home administrator - to improve, our occupation therapists will perform initial evaluation of pt's status upon admission and devise an individualized program for Caregiver Training Weakness - to improve, our occupation therapists will perform initial evaluation of pt's status upon admission and devise an individualized program for Aquatic Therapy, Balance, Endurance, UE ROM, and UE strengthening FUNCTIONAL STATUS: UPDATED AT WEEKLY TEAM CONFERENCE - Bladder Same accident frequency: 7-Ind - No accidents in the past 7 days - Bowel Same accident frequency: 7-Ind - No accidents in the past 7 days - Walking Same score based on distance walked: 2(50-149ft) - Wheelchair Same score based on distance traveled: 0(N/A) FUNCTIONAL STATUS: - Self-Care A. Eating sup B. Grooming sup C. Bathing sup D. Dressing - Upper sup E. Dressing - Lower sup F. Toileting sup - Sphincter Control G: Bladder control Ind H: Bowel control Ind - Transfers Control I. Bed/Chair/Wheelchair sup J. Toilet ADNO K. Tub/Shower ADNO - Locomotion L. Walk/Wheelchair (C) sup L. Walk/Wheelchair (W) sup M. Stairs ADNO - Communication N. Comprehension (B) Cesar O. Expression (B) Cesar - Social Cognition P. Social Interaction Cesar Q. Problem Solving Cesar R. Memory Cesar - Endurance Fair - Balance Fair - Safety Awareness Fair CURRENT FUNC. DEFICITS: Self-Care, Locomotion, Endurance, Safety Awareness, Transfers Control, and Balance SIGNATURE PANEL: (CDT)
[2018-03-18] MEDS: TRAZODONE 50 MG TABLET PO PRN (22:13)
[2018-03-19] MEDS: CODEINE 30MG/APAP 300MG TAB PO PRN ×3 (02:04→19:24)
[2018-03-19] MEDS: ALBUTEROL 2.5 MG/3 ML NEB SOL NEB SCH ×4 (03:22→20:00)
[2018-03-19] MEDS: IPRATROPIUM BROM 0.5MG/2.5ML NEB SCH ×4 (03:23→20:00)
--- NOTE | 2018-03-19 04:42 | FAST ---
SHIFT START DATE/TIME: 03/18/2018 19:00 (CDT) SHIFT END DATE/TIME: 03/19/2018 07:00 (CDT) NAME JOSE ALEXANDRA DATE OF : 1935 DATE OF ADMISSION: 03/15/2018 13:31 (CDT) PHONE: AGE: 82 N# [id number] GENDER: Male ENCOUNTER PHYSICIAN: Dr. Luca Casas M.D. ADMISSION DIAGNOSIS: - Orthopaedic Disorders 08 - Other Orthopaedic (08.9) R shoulder dislocation. EATING: EATING - STEP 1: Does the patient require assistance when eating? Yes. EATING - STEP 2: Does the patient require the assistance of a helper? Yes. EATING - STEP 3: Does the patient perform half or more of the eating tasks? Yes. EATING - STEP 4: Does the patient need only supervision, cuing, coaxing OR help to apply an orthosis OR help to cut fo od, open containers, pour liquids, or butter bread? No. EATING - SCORE: 4-MIN GROOMING: Wash, rinse, and dry face Wash, rinse, and dry hands GROOMING - STEP 1: Does the patient require assistance when grooming? Yes. GROOMING - STEP 2: Does the patient require the assistance of a helper? Yes. GROOMING - STEP 3: How much assistance does the patient require from the helper? More than incidental help GROOMING - STEP 4: How many grooming tasks does the patient perform WITHOUT the assistance of the helper? Less than half of the grooming tasks GROOMING - SCORE: 2-MAX BATHING: Activity did not occur on this shift BATHING - SCORE: 0-UNK DRESSING - UPPER BODY: Patient is not dressing in public clothing ARTICLES SCORE Total number of steps: 0 DRESSING - UPPER BODY - SCORE: 0-UNK DRESSING - LOWER BODY: Patient is not dressing in public clothing ARTICLES SCORE Total number of steps: 0 DRESSING - LOWER BODY - SCORE: 0-UNK TOILETING: TOILETING - STEP 1: Does the patient require assistance with toileting? Yes. TOILETING - STEP 2: Does the patient require the assistance of a helper? Yes. TOILETING - STEP 3: How much assistance does the patient require from the helper? Hands-on assistance from the helper TOILETING - STEP 4: Of the 3 tasks: 1) Adjusting clothing prior to use, 2) Cleansing of perineal area, 3) Adjusting clot aleksandr after use; How many tasks does the patient perform WITHOUT assistance of the helper? No tasks; h elper performs all three tasks TOILETING - SCORE: 1-DEP BLADDER MANAGEMENT: Brookesmith removes incontinent device (Depends, pull ups, etc.); cleans the patient after accident / inco ntinent episode; and, applies new incontinent device. BLADDER MANAGEMENT - SCORE: 1-DEP BLADDER MANAGEMENT - FREQUENCY OF ACCIDENTS: BLADDER MANAGEMENT(FA) - STEP 1: How many accidents has the patient had during the current shift? 1 BOWEL MANAGEMENT: Brookesmith removes incontinent device (depends, pull ups, etc.); cleans the patient after accident / inco ntinent episode; and, applies new device (depends, pull-ups, padding, etc.). BOWEL MANAGEMENT - SCORE: 1-DEP BOWEL MANAGEMENT - FREQUENCY OF ACCIDENTS: BOWEL MANAGEMENT(FA) - STEP 1: How many accidents has the patient had during the current shift? 1 TRANSFERS: BED, CHAIR, WHEELCHAIR: Patient requires more than one helper and/or the use of a mechanical lift is utilized TRANSFERS: BED, CHAIR, WHEELCHAIR - SCORE: 1-DEP TRANSFERS: TOILET: Activity did not occur on this shift TRANSFERS: TOILET - SCORE: 0-UNK TRANSFERS: SHOWER: Activity did not occur on this shift TRANSFERS: SHOWER - SCORE: 0-UNK TRANSFERS: TUB: Activity did not occur on this shift TRANSFERS: TUB - SCORE: 0-UNK LOCOMOTION: WALK: Activity did not occur on this shift LOCOMOTION: WALK - SCORE: 0-UNK LOCOMOTION: WHEELCHAIR: Activity did not occur on this shift LOCOMOTION: WHEELCHAIR - SCORE: 0-UNK COMPREHENSION: COMPREHENSION: TYPE: Both COMPREHENSION - STEP 1: Does the patient require help to understand complex and abstract ideas (such as current events, finan christian, discharge planning, medical issues, relationships, etc)? Yes. COMPREHENSION - STEP 2: Does the patient require help to understand questions or statements about basic needs or ideas (such as hunger, thirst, sleep, safety, daily schedule, room location, or discomfort) half or more of the t sari? Yes. COMPREHENSION - STEP 3: Is the patient basically able to understand and respond appropriately and consistently? Yes. COMPREHENSION - SCORE: 2-MAX EXPRESSION EXPRESSION: TYPE: Both EXPRESSION - STEP 1: Does the patient require help expressing complex and abstract ideas (such as current events, finances , discharge planning, medical issues, relationships, etc)? Yes. EXPRESSION - STEP 2: Does the patient require help to express basic necessities or ideas (such as hunger, thirst, sleep, s afety, daily schedule, room location, or discomfort) half or more of the time? Yes. EXPRESSION - STEP 3: Is the patient basically unable to express or does s/he express inappropriately or inconsistently fili pite prompting? No. EXPRESSION - SCORE: 2-MAX SOCIAL INTERACTION: SOCIAL INTERACTION - STEP 1: Does the patient require a helper to interact with others in social and therapeutic situations? Yes. SOCIAL INTERACTION - STEP 2: Does the patient interact appropriately half or more of the time? No. SOCIAL INTERACTION - STEP 3: How often does the patient interact appropriately? More than 25% of the time SOCIAL INTERACTION - SCORE: 2-MAX PROBLEM SOLVING: PROBLEM SOLVING - STEP 1: Does the patient need help to solve complex problems such as managing a checking account or confronti ng interpersonal problems? Yes. PROBLEM SOLVING - STEP 2: Does the patient solve basic routine problems half or more of the time? No. PROBLEM SOLVING - STEP 3: Does the patient need help to solve problems all the time or is s/he unable to solve problems? Yes. P atient needs help to solve problems all the time or is unable to solve problems PROBLEM SOLVING - SCORE: 1-DEP MEMORY: MEMORY - STEP 1: Does the patient need help to remember frequently encountered people, daily routines, and executing r equests? Yes. MEMORY - STEP 2: How often does the patient need help to remember frequently encountered people, daily routines, and e xecuting requests? More than 50% of the time MEMORY - STEP 3: Does the patient need help to remember all of the time OR does s/he not effectively recognize and rem ember? Yes. Patient needs help to remember ALL the time OR does not effectively recognize and remembe r MEMORY - SCORE: 1-DEP SIGNATURE PANEL: The following modified sections: Eating - Score, Grooming - Score, Bathing - Score, Dressing - Upper Body - Score, Dressing - Lower Body - Score, Toileting - Score, Bladder Management - Score, Bowel Man agement - Score, Transfers: Bed, Chair, Wheelchair - Score, Transfers: Toilet - Score, Transfers: Leonela wer - Score, Transfers: Tub - Score, Locomotion: Walk - Score, Locomotion: Wheelchair - Score, Compre hension - Score, Expression - Score, Social Interaction - Score, Problem Solving - Score, Memory - Sc ore were [electronically] signed by Zakiya GellerNIsha on SunMar 19 2018 03:44:18 GMT-0500 ( Central Daylight Time)
[2018-03-19] MEDS: PANTOPRAZOLE 40MG TABLET PO SCH (07:09)
[2018-03-19] MEDS: FINASTERIDE 5 MG TAB PO SCH (08:56)
[2018-03-19] MEDS: ASPIRIN EC 81 MG TAB PO SCH (08:56)
[2018-03-19] MEDS: FERROUS SULFATE 325 MG TAB PO SCH ×2 (08:57→20:23)
[2018-03-19] MEDS: ENSURE HIGH PROTEIN 237 ML CAN PO SCH ×2 (08:57→20:24)
[2018-03-19] MEDS: levoFLOXacin 500 MG TAB PO SCH (08:57)
[2018-03-19] MEDS: GABAPENTIN 300 MG CAP PO SCH ×2 (08:57→20:23)
[2018-03-19] MEDS: DOCOSAHEXANOIC AC/EPA 1000 MG PO SCH (08:57)
[2018-03-19] MEDS: HEPARIN 5000 UNIT/ML 1 ML VIAL SQ SCH ×2 (09:00→23:22)
--- NOTE | 2018-03-19 11:23 | FAST ---
SHIFT START DATE/TIME: 03/19/2018 07:00 (CDT) SHIFT END DATE/TIME: 03/19/2018 19:00 (CDT) NAME JOSE ALEXANDRA DATE OF : 1935 DATE OF ADMISSION: 03/15/2018 13:31 (CDT) PHONE: AGE: 82 N# [id number] GENDER: Male ENCOUNTER PHYSICIAN: Dr. Luca Cassa M.D. ADMISSION DIAGNOSIS: - Orthopaedic Disorders 08 - Other Orthopaedic (08.9) R shoulder dislocation. EATING: EATING - STEP 1: Does the patient require assistance when eating? Yes. EATING - STEP 2: Does the patient require the assistance of a helper? Yes. EATING - STEP 3: Does the patient perform half or more of the eating tasks? Yes. EATING - STEP 4: Does the patient need only supervision, cuing, coaxing OR help to apply an orthosis OR help to cut fo od, open containers, pour liquids, or butter bread? Yes. EATING - SCORE: 5-SUP GROOMING: Oral care Wash, rinse, and dry face Wash, rinse, and dry hands GROOMING - STEP 1: Does the patient require assistance when grooming? Yes. GROOMING - STEP 2: Does the patient require the assistance of a helper? Yes. GROOMING - STEP 3: How much assistance does the patient require from the helper? Only prior equipment preparation/set up from the helper GROOMING - SCORE: 5-SUP BATHING: Activity did not occur on this shift BATHING - SCORE: 0-UNK DRESSING - UPPER BODY: Activity did not occur on this shift ARTICLES SCORE Total number of steps: 0 DRESSING - UPPER BODY - SCORE: 0-UNK DRESSING - LOWER BODY: Elastic waist pants (three steps) ARTICLES SCORE Total number of steps: 3 DRESSING - LOWER BODY - STEP 1: Does the patient require help when dressing below the waist? Yes. DRESSING - LOWER BODY - STEP 2: Does the patient require the assistance of a helper? Yes. DRESSING - LOWER BODY - STEP 3: Does the helper touch the patient while dressing? Yes. DRESSING - LOWER BODY - STEP 4: How many of the total steps does the patient complete on his/her own? 2 DRESSING - LOWER BODY - SCORE: 3-MOD TOILETING: TOILETING - STEP 1: Does the patient require assistance with toileting? Yes. TOILETING - STEP 2: Does the patient require the assistance of a helper? Yes. TOILETING - STEP 3: How much assistance does the patient require from the helper? Hands-on assistance from the helper TOILETING - STEP 4: Of the 3 tasks: 1) Adjusting clothing prior to use, 2) Cleansing of perineal area, 3) Adjusting clot aleksandr after use; How many tasks does the patient perform WITHOUT assistance of the helper? Two tasks TOILETING - SCORE: 3-MOD BLADDER MANAGEMENT: BLADDER MANAGEMENT - STEP 1: Does the patient control the bladder completely and intentionally without equipment or devices or med ications, and is always continent? No. BLADDER MANAGEMENT - STEP 2: Does the patient require the assistance of a helper? No, patient requires and independently uses an a ssistive device, such as a urinal, bedpan, bedside commode, catheter, absorbent pad, or collecting de vice BLADDER MANAGEMENT - SCORE: 6-MANOLO BLADDER MANAGEMENT - FREQUENCY OF ACCIDENTS: BLADDER MANAGEMENT(FA) - STEP 1: How many accidents has the patient had during the current shift? 1 BOWEL MANAGEMENT: BOWEL MANAGEMENT - STEP 1: Does the patient control bowels completely and intentionally without equipment devices or medications AND is always continent? No. BOWEL MANAGEMENT - STEP 2: Does the patient require the assistance of a helper? No, patient requires and manages independently a n assistive device such as a bedpan, bedside commode, absorbent pad, incontinent device, or collectin g device BOWEL MANAGEMENT - SCORE: 6-MANOLO BOWEL MANAGEMENT - FREQUENCY OF ACCIDENTS: BOWEL MANAGEMENT(FA) - STEP 1: How many accidents has the patient had during the current shift? 2 TRANSFERS: BED, CHAIR, WHEELCHAIR: TRANSFERS: BED, CHAIR, WHEELCHAIR - STEP 1: Does the patient require assistance with bed, chair, or wheelchair transfers? Yes. TRANSFERS: BED, CHAIR, WHEELCHAIR - STEP 2: Does the patient require the assistance of a helper? Yes. TRANSFERS: BED, CHAIR, WHEELCHAIR - STEP 3: How much assistance does the patient require from the helper? Lifting of the legs TRANSFERS: BED, CHAIR, WHEELCHAIR - STEP 4: How many legs does the patient require the helper to lift? both legs TRANSFERS: BED, CHAIR, WHEELCHAIR - SCORE: 3-MOD TRANSFERS: TOILET: TRANSFERS: TOILET - STEP 1: Does the patient require assistance with toilet transfers? Yes. TRANSFERS: TOILET - STEP 2: Does the patient require the assistance of a helper? Yes. TRANSFERS: TOILET - STEP 3: How much assistance does the patient require from the helper? Patient performs half or more of the tr ansferring tasks TRANSFERS: TOILET - STEP 4: Does the patient need only incidental help such as contact guard or steadying during toilet transfer? Yes. TRANSFERS: TOILET - SCORE: 4-MIN TRANSFERS: SHOWER: Activity did not occur on this shift TRANSFERS: SHOWER - SCORE: 0-UNK TRANSFERS: TUB: Activity did not occur on this shift TRANSFERS: TUB - SCORE: 0-UNK LOCOMOTION: WALK: Activity did not occur on this shift LOCOMOTION: WALK - SCORE: 0-UNK LOCOMOTION: WHEELCHAIR: Activity did not occur on this shift LOCOMOTION: WHEELCHAIR - SCORE: 0-UNK COMPREHENSION: COMPREHENSION - SCORE: 0-UNK EXPRESSION EXPRESSION - SCORE: 0-UNK SOCIAL INTERACTION: SOCIAL INTERACTION - SCORE: 0-UNK PROBLEM SOLVING: PROBLEM SOLVING - SCORE: 0-UNK MEMORY: MEMORY - SCORE: 0-UNK SIGNATURE PANEL: The following modified sections: Eating - Score, Grooming - Score, Bathing - Score, Dressing - Upper Body - Score, Dressing - Lower Body - Score, Toileting - Score, Bladder Management - Score, Bowel Man agement - Score, Transfers: Bed, Chair, Wheelchair - Score, Transfers: Toilet - Score, Transfers: Leonela wer - Score, Transfers: Tub - Score, Locomotion: Walk - Score, Locomotion: Wheelchair - Score, Compre hension - Score, Expression - Score, Social Interaction - Score, Problem Solving - Score, Memory - Sc ore were [electronically] signed by Morgan Orta on SunMar 19 2018 10:25:26 GMT-0500 (Central Daylight Time)
--- NOTE | 2018-03-19 14:39 | EKG ---
Test Date: 2018-03-18 Test Time: 18:00:17 Lens Grinder And Polisher: RT Diaz MEASUREMENT RESULTS: Intervals: Rate: 95 NJ: 168 QRSD: 110 QT: 358 QTc: 449 [place]: P: 47 NJ: 168 QRS: -41 T: 83 INTERPRETIVE STATEMENTS: Sinus rhythm with marked sinus arrhythmia Left axis deviation ST abnormality, possible digitalis effect Abnormal ECG Compared to ECG 03/17/2018 01:56:24 ST (T wave) deviation now present Atrial premature complex(es) no longer present Electronically Signed On 03-19-18 14:34:33 CDT by Zach White
--- NOTE | 2018-03-19 15:09 | FAST ---
ENCOUNTER DATE AND TIME: 03/19/2018 08:00 (CDT) NAME JOSE ALEXANDRA DATE OF : 1935 DATE OF ADMISSION: 03/15/2018 13:31 (CDT) PHONE: AGE: 82 SSN# [id number] GENDER: Male ENCOUNTER PHYSICIAN: Dr. Luca Casas M.D. ADMISSION DIAGNOSIS: - Orthopaedic Disorders 08 - Other Orthopaedic (08.9) R shoulder dislocation. EATING: Activity did not occur on this shift EATING - SCORE: 0-UNK GROOMING: Activity did not occur on this shift GROOMING - SCORE: 0-UNK BATHING: Activity did not occur on this shift BATHING - SCORE: 0-UNK DRESSING - UPPER BODY: Patient is not dressing in public clothing ARTICLES SCORE Total number of steps: 0 DRESSING - UPPER BODY - SCORE: 0-UNK DRESSING - LOWER BODY: Activity did not occur on this shift ARTICLES SCORE Total number of steps: 0 DRESSING - LOWER BODY - SCORE: 0-UNK TOILETING: Activity did not occur on this shift TOILETING - SCORE: 0-UNK BLADDER MANAGEMENT: Activity did not occur on this shift BLADDER MANAGEMENT - SCORE: 7-IND BOWEL MANAGEMENT: Activity did not occur on this shift BOWEL MANAGEMENT - SCORE: 7-IND TRANSFERS: BED, CHAIR, WHEELCHAIR: Activity did not occur on this shift TRANSFERS: BED, CHAIR, WHEELCHAIR - SCORE: 0-UNK TRANSFERS: TOILET: Activity did not occur on this shift TRANSFERS: TOILET - SCORE: 0-UNK TRANSFERS: SHOWER: Activity did not occur on this shift TRANSFERS: SHOWER - SCORE: 0-UNK TRANSFERS: TUB: Activity did not occur on this shift TRANSFERS: TUB - SCORE: 0-UNK LOCOMOTION: WALK: Activity did not occur on this shift LOCOMOTION: WALK - SCORE: 0-UNK LOCOMOTION: WHEELCHAIR: Activity did not occur on this shift LOCOMOTION: WHEELCHAIR - SCORE: 0-UNK LOCOMOTION: STAIRS: Activity did not occur on this shift LOCOMOTION: STAIRS - SCORE: 0-UNK COMPREHENSION: COMPREHENSION - SCORE: 0-UNK EXPRESSION EXPRESSION - SCORE: 0-UNK SOCIAL INTERACTION: SOCIAL INTERACTION - SCORE: 0-UNK PROBLEM SOLVING: PROBLEM SOLVING - SCORE: 0-UNK MEMORY: MEMORY - SCORE: 0-UNK SIGNATURE PANEL: The following modified sections: Eating - Score, Grooming - Score, Bathing - Score, Dressing - Upper Body - Score, Dressing - Lower Body - Score, Toileting - Score, Transfers: Bed, Chair, Wheelchair - S core, Transfers: Toilet - Score, Transfers: Shower - Score, Transfers: Tub - Score, Comprehension - S core, Expression - Score, Social Interaction - Score, Problem Solving - Score, Memory - Score were [e lectronically] signed by DIANE Hunter on SunMar 19 2018 14:10:49 T-0500 ([facility] Time)
--- NOTE | 2018-03-19 18:25 | FAST ---
ENCOUNTER DATE AND TIME: 03/18/2018 08:00 (CDT) NAME JOSE ALEXANDRA DATE OF : 1935 DATE OF ADMISSION: 03/15/2018 13:31 (CDT) PHONE: AGE: 82 SSN# [id number] GENDER: Male ENCOUNTER PHYSICIAN: Dr. Luca Casas M.D. ADMISSION DIAGNOSIS: - Orthopaedic Disorders 08 - Other Orthopaedic (08.9) R shoulder dislocation. EATING: Activity did not occur on this shift EATING - SCORE: 0-UNK GROOMING: Activity did not occur on this shift GROOMING - SCORE: 0-UNK BATHING: Activity did not occur on this shift BATHING - SCORE: 0-UNK DRESSING - UPPER BODY: Activity did not occur on this shift Patient is not dressing in public clothing ARTICLES SCORE Total number of steps: 0 DRESSING - UPPER BODY - SCORE: 0-UNK DRESSING - LOWER BODY: Activity did not occur on this shift Patient is not dressing in public clothing ARTICLES SCORE Total number of steps: 0 DRESSING - LOWER BODY - SCORE: 0-UNK TOILETING: Activity did not occur on this shift TOILETING - SCORE: 0-UNK BLADDER MANAGEMENT: Activity did not occur on this shift BLADDER MANAGEMENT - SCORE: 7-IND BOWEL MANAGEMENT: Activity did not occur on this shift BOWEL MANAGEMENT - SCORE: 7-IND TRANSFERS: BED, CHAIR, WHEELCHAIR: Activity did not occur on this shift TRANSFERS: BED, CHAIR, WHEELCHAIR - SCORE: 0-UNK TRANSFERS: TOILET: Activity did not occur on this shift TRANSFERS: TOILET - SCORE: 0-UNK TRANSFERS: SHOWER: Activity did not occur on this shift TRANSFERS: SHOWER - SCORE: 0-UNK TRANSFERS: TUB: Activity did not occur on this shift TRANSFERS: TUB - SCORE: 0-UNK LOCOMOTION: WALK: Activity did not occur on this shift LOCOMOTION: WALK - SCORE: 0-UNK LOCOMOTION: WHEELCHAIR: Activity did not occur on this shift LOCOMOTION: WHEELCHAIR - SCORE: 0-UNK LOCOMOTION: STAIRS: Activity did not occur on this shift LOCOMOTION: STAIRS - SCORE: 0-UNK COMPREHENSION: COMPREHENSION - STEP 1: Does the patient require help to understand complex and abstract ideas (such as current events, finan christian, discharge planning, medical issues, relationships, etc)? Yes. COMPREHENSION - STEP 2: Does the patient require help to understand questions or statements about basic needs or ideas (such as hunger, thirst, sleep, safety, daily schedule, room location, or discomfort) half or more of the t sari? No. COMPREHENSION - STEP 3: How often does the patient need help to understand directions and conversation about basic needs? 10% - 24% of the time COMPREHENSION - SCORE: 4-MIN EXPRESSION EXPRESSION - STEP 1: Does the patient require help expressing complex and abstract ideas (such as current events, finances , discharge planning, medical issues, relationships, etc)? Yes. EXPRESSION - STEP 2: Does the patient require help to express basic necessities or ideas (such as hunger, thirst, sleep, s afety, daily schedule, room location, or discomfort) half or more of the time? No. EXPRESSION - STEP 3: How often does the patient need help to express directions and conversation about basic needs? 25-49% of the time EXPRESSION - SCORE: 3-MOD SOCIAL INTERACTION: SOCIAL INTERACTION - STEP 1: Does the patient require a helper to interact with others in social and therapeutic situations? Yes. SOCIAL INTERACTION - STEP 2: Does the patient interact appropriately half or more of the time? Yes. SOCIAL INTERACTION - STEP 3: How often does the patient need help to interact appropriately? 10-24% of the time SOCIAL INTERACTION - SCORE: 4-MIN PROBLEM SOLVING: PROBLEM SOLVING - STEP 1: Does the patient need help to solve complex problems such as managing a checking account or confronti ng interpersonal problems? Yes. PROBLEM SOLVING - STEP 2: Does the patient solve basic routine problems half or more of the time? No. PROBLEM SOLVING - STEP 3: Does the patient need help to solve problems all the time or is s/he unable to solve problems? No. Jhon winchester can sometimes solve problems PROBLEM SOLVING - SCORE: 2-MAX MEMORY: MEMORY - STEP 1: Does the patient need help to remember frequently encountered people, daily routines, and executing r equests? Yes. MEMORY - STEP 2: How often does the patient need help to remember frequently encountered people, daily routines, and e xecuting requests? More than 50% of the time MEMORY - STEP 3: Does the patient need help to remember all of the time OR does s/he not effectively recognize and rem ember? Yes. Patient needs help to remember ALL the time OR does not effectively recognize and remembe r MEMORY - SCORE: 1-DEP SIGNATURE PANEL: The following modified sections: Comprehension - Score, Expression - Score, Social Interaction - Scor e, Problem Solving - Score, Memory - Score were [electronically] signed by SHOBHA Lazar on Sun 17:26:58 GMT-0500 (Central Daylight Time)
--- NOTE | 2018-03-19 18:43 | FAST ---
ENCOUNTER DATE AND TIME: 03/19/2018 08:00 (CDT) NAME JOSE ALEXANDRA DATE OF : 1935 DATE OF ADMISSION: 03/15/2018 13:31 (CDT) PHONE: AGE: 82 N# [id number] GENDER: Male ENCOUNTER PHYSICIAN: Dr. Luca Casas M.D. ADMISSION DIAGNOSIS: - Orthopaedic Disorders 08 - Other Orthopaedic (08.9) R shoulder dislocation. EATING: Activity did not occur on this shift EATING - SCORE: 0-UNK GROOMING: Activity did not occur on this shift GROOMING - SCORE: 0-UNK BATHING: Activity did not occur on this shift BATHING - SCORE: 0-UNK DRESSING - UPPER BODY: Activity did not occur on this shift Patient is not dressing in public clothing ARTICLES SCORE Total number of steps: 0 DRESSING - UPPER BODY - SCORE: 0-UNK DRESSING - LOWER BODY: Activity did not occur on this shift Patient is not dressing in public clothing ARTICLES SCORE Total number of steps: 0 DRESSING - LOWER BODY - SCORE: 0-UNK TOILETING: Activity did not occur on this shift TOILETING - SCORE: 0-UNK BLADDER MANAGEMENT: Activity did not occur on this shift BLADDER MANAGEMENT - SCORE: 7-IND BOWEL MANAGEMENT: Activity did not occur on this shift BOWEL MANAGEMENT - SCORE: 7-IND TRANSFERS: BED, CHAIR, WHEELCHAIR: TRANSFERS: BED, CHAIR, WHEELCHAIR - STEP 1: Does the patient require assistance with bed, chair, or wheelchair transfers? Yes. TRANSFERS: BED, CHAIR, WHEELCHAIR - STEP 2: Does the patient require the assistance of a helper? Yes. TRANSFERS: BED, CHAIR, WHEELCHAIR - STEP 3: How much assistance does the patient require from the helper? Only supervision TRANSFERS: BED, CHAIR, WHEELCHAIR - SCORE: 5-SUP TRANSFERS: TOILET: Activity did not occur on this shift TRANSFERS: TOILET - SCORE: 0-UNK TRANSFERS: SHOWER: Activity did not occur on this shift TRANSFERS: SHOWER - SCORE: 0-UNK TRANSFERS: TUB: Activity did not occur on this shift TRANSFERS: TUB - SCORE: 0-UNK LOCOMOTION: WALK: LOCOMOTION: WALK - STEP 1: Does the patient need help to walk 150 feet? Yes. LOCOMOTION: WALK - STEP 2: How much assistance does the patient require to walk a minimum of 150 feet? Patient walks less than 1 50 feet - but more than 50 feet - with the assistance of only one helper LOCOMOTION: WALK - SCORE: 2-MAX LOCOMOTION: WHEELCHAIR: Activity did not occur on this shift LOCOMOTION: WHEELCHAIR - SCORE: 0-UNK LOCOMOTION: STAIRS: Activity did not occur on this shift LOCOMOTION: STAIRS - SCORE: 0-UNK COMPREHENSION: COMPREHENSION - SCORE: 0-UNK EXPRESSION EXPRESSION - SCORE: 0-UNK SOCIAL INTERACTION: SOCIAL INTERACTION - SCORE: 0-UNK PROBLEM SOLVING: PROBLEM SOLVING - SCORE: 0-UNK MEMORY: MEMORY - SCORE: 0-UNK SIGNATURE PANEL: The following modified sections: Transfers: Bed, Chair, Wheelchair - Score, Transfers: Toilet - Score , Locomotion: Walk - Score, Locomotion: Wheelchair - Score, Locomotion: Stairs - Score were [electron [place]] signed by Westley Herring, PT on SunMar 19 2018 17:45:01 T-0500 (Central Daylight Time)
--- NOTE | 2018-03-19 19:01 | R.PN ---
ENCOUNTER DATE AND TIME: 03/19/2018 17:56 (CDT) NAME JOSE ALEXANDRA DATE OF : 1935 DATE OF ADMISSION: 03/15/2018 13:31 (CDT) R shoulder dislocationCHIEF COMPLAINT: Right shoulder dislocation, dysphagia, aspiration of thin liquid SUBJECTIVE: Pt denied any Shortness of Breath. Pt denied any depression. Patient had a productive cough with chest x-ray showing aspiration pneumonia. He is on Levaquin 500 m g daily for 10 days. On nectar thickened consistence. Working with speech therapy. Ambulated 320' wi th contact guard assistance without an assistive device. VITAL SIGNS Temperature: 97.6 F SBP/DBP: 129/66 Pulse: 71 Resp: 16 MEDICATION ALLERGIES: Nsaids ENVIRONMENTAL ALLERGIES: None Known - Substance Allergies None Known - Other Allergies None Known NURSING: - Shower allowing shower - Skin care per protocol PRECAUTIONS: - Weight Bearing Precaution NWB right UE - Fall Precaution Bed and chair alarm ACTIVITIES OOB only with supervision THERAPIES: - Occupational Therapy Evaluate and Treat. - Physical Therapy Evaluate and Treat. PHYSICAL EXAM - Gen Alert and awake Lying in bed No apparent distress Oriented to: person, time, and place - Skin No breakdowns No numbness - Eyes No abnormalities - ENMT No abnormalities - Neck No abnormalities - CVS RRR - Chest Mildly decreased breath sounds bilaterally.with productive cough - Resp + upper airway ronchi - Abd +bowel sounds - GI Soft Deferred - No abnormalities - Ext no edema - MSK Normal bulk and tone in the upper and lower extremities - Neuro Moderate right upper extremity weakness with right arm in a sling. - Psych No abnormalities ASSESSMENT: Pt. is a 82 yo Right-handed white male.On 03/05/2018 he was admitted to [facility] with diagnosis R shoulde r dislocation.His impairment category is Orthopaedic Disorders 08 - Other Orthopaedic (08.9).Pre-mor bidly, Pt. was independent/mod-I in Self-Care, Locomotion, Sphincter Control, Transfers Control, Comm unication, and Social Cognition; and he had good Sphincter Control.Currently, he has deficits of Self -Care, Locomotion, Endurance, Safety Awareness, Transfers Control, and Balance.Pt. is now referred to [facility] for acute in-patient rehabilitation in order to maximize patient's functional independence in activities of daily living, strength, ROM, and mobility.- Rehab Goal Patient has realistic goal of being discharged at assistance level 6-Cesar to reside at Home with Fam heriberto/Relatives. MDM/PLAN: - Diet Type Continue Regular - Physical Therapy Decreased range of motion - to improve, our physical therapists will perform initial evaluation of p t's status upon admission and devise an individualized program for increasing patient's Range of Lucian on. Gait dysfunction - to improve, our physical therapists will perform initial evaluation of pt's statu s upon admission and devise an individualized program for Gait Training, and Wheel Chair mobility Inability to transfer - to improve, our physical therapists will perform initial evaluation of pt's status upon admission and devise an individualized program for Bed mobility Need for home safety evaluation - to improve, our physical therapists will perform initial evaluatio n of pt's status upon admission and devise an individualized program for Home Evaluation Need in caregiver upon discharge - to improve, our physical therapists will perform initial evaluati on of pt's status upon admission and devise an individualized program for Caregiver Training New precaution - to improve, our physical therapists will perform initial evaluation of pt's status upon admission and devise an individualized program for Patient precaution education Poor balance - to improve, our physical therapists will perform initial evaluation of pt's status up on admission and devise an individualized program for Balance Training Poor endurance - to improve, our physical therapists will perform initial evaluation of pt's status upon admission and devise an individualized program for Endurance Training Weakness - to improve, our physical therapists will perform initial evaluation of pt's status upon a dmission and devise an individualized program for Aquatic Therapy, Neuromuscular Reeducation, and Str engthening Achieving independence - to improve, our physical therapists will perform initial evaluation of pt's status upon admission and devise an individualized program for Community Reintegration Activities - Diet - Liquid Texture Continue Regular - Tube Feed Continue N/A - Weight Bearing Precaution NWB right UE - Fall Precaution Bed and chair alarm - Skin care per protocol - Diet - Solid Texture Continue Regular - Shower allowing shower - Occupational Therapy ADL deficits - to improve, our occupation therapists will perform initial evaluation of pt's status upon admission and devise an individualized program for Bathing, Bed mobility, Community Reintegratio n, Cooking, Dressing, Eating, Fine Motor Skills, Grooming, Homemaking, Kitchen Mobility, Laundry, Pat ient Education, Safety Awareness, Splinting - Positioning, Transfers(Toilet, Tub, Shower), and Wheel Chair Management Need for early breastfeeding care specialist - to improve, our occupation therapists will perform initial evaluation of pt's status upon admission and devise an individualized program for Caregiver Training Weakness - to improve, our occupation therapists will perform initial evaluation of pt's status upon admission and devise an individualized program for Aquatic Therapy, Balance, Endurance, UE ROM, and UE strengthening FUNCTIONAL STATUS: UPDATED AT WEEKLY TEAM CONFERENCE - Bladder Same accident frequency: 7-Ind - No accidents in the past 7 days - Bowel Same accident frequency: 7-Ind - No accidents in the past 7 days - Walking Same score based on distance walked: 2(50-149ft) - Wheelchair Same score based on distance traveled: 0(N/A) FUNCTIONAL STATUS: - Self-Care A. Eating sup B. Grooming sup C. Bathing sup D. Dressing - Upper sup E. Dressing - Lower sup F. Toileting sup - Sphincter Control G: Bladder control Ind H: Bowel control Ind - Transfers Control I. Bed/Chair/Wheelchair sup J. Toilet ADNO K. Tub/Shower ADNO - Locomotion L. Walk/Wheelchair (C) sup L. Walk/Wheelchair (W) sup M. Stairs ADNO - Communication N. Comprehension (B) Cesar O. Expression (B) Cesar - Social Cognition P. Social Interaction Cesar Q. Problem Solving Cesar R. Memory Cesar - Endurance Fair - Balance Fair - Safety Awareness Fair CURRENT FUNC. DEFICITS: Self-Care, Locomotion, Endurance, Safety Awareness, Transfers Control, and Balance SIGNATURE PANEL: (CDT)
[2018-03-19] MEDS: ATORVASTATIN 40 MG TAB PO SCH (20:23)
[2018-03-19] MEDS: DOCUSATE NA/SENNA CONC 1 TAB PO SCH (20:23)
[2018-03-19] MEDS: RISPERIDONE 0.25 MG TABLET PO SCH (20:24)
[2018-03-20] MEDS: ALBUTEROL 2.5 MG/3 ML NEB SOL NEB SCH ×4 (01:45→20:20)
[2018-03-20] MEDS: IPRATROPIUM BROM 0.5MG/2.5ML NEB SCH ×4 (01:45→20:20)
--- NOTE | 2018-03-20 04:31 | FAST ---
SHIFT START DATE/TIME: 03/19/2018 19:00 (CDT) SHIFT END DATE/TIME: 03/20/2018 07:00 (CDT) NAME JOSE ALEXANDRA DATE OF : 1935 DATE OF ADMISSION: 03/15/2018 13:31 (CDT) PHONE: AGE: 82 N# [id number] GENDER: Male ENCOUNTER PHYSICIAN: Dr. Luca Casas M.D. ADMISSION DIAGNOSIS: - Orthopaedic Disorders 08 - Other Orthopaedic (08.9) R shoulder dislocation. EATING: Activity did not occur on this shift EATING - SCORE: 0-UNK GROOMING: Comb/brush hair Oral care Wash, rinse, and dry face Wash, rinse, and dry hands GROOMING - STEP 1: Does the patient require assistance when grooming? Yes. GROOMING - STEP 2: Does the patient require the assistance of a helper? Yes. GROOMING - STEP 3: How much assistance does the patient require from the helper? Incidental touching assistance from the helper while grooming GROOMING - SCORE: 4-MIN BATHING: Activity did not occur on this shift BATHING - SCORE: 0-UNK DRESSING - UPPER BODY: Patient is not dressing in public clothing ARTICLES SCORE Total number of steps: 0 DRESSING - UPPER BODY - SCORE: 0-UNK DRESSING - LOWER BODY: Patient is not dressing in public clothing ARTICLES SCORE Total number of steps: 0 DRESSING - LOWER BODY - SCORE: 0-UNK TOILETING: TOILETING - STEP 1: Does the patient require assistance with toileting? Yes. TOILETING - STEP 2: Does the patient require the assistance of a helper? Yes. TOILETING - STEP 3: How much assistance does the patient require from the helper? Hands-on assistance from the helper TOILETING - STEP 4: Of the 3 tasks: 1) Adjusting clothing prior to use, 2) Cleansing of perineal area, 3) Adjusting clot aleksandr after use; How many tasks does the patient perform WITHOUT assistance of the helper? One task TOILETING - SCORE: 2-MAX BLADDER MANAGEMENT: [place] removes incontinent device (Depends, pull ups, etc.); cleans the patient after accident / inco ntinent episode; and, applies new incontinent device. BLADDER MANAGEMENT - SCORE: 1-DEP BOWEL MANAGEMENT: BOWEL MANAGEMENT - STEP 1: Does the patient control bowels completely and intentionally without equipment devices or medications AND is always continent? No. BOWEL MANAGEMENT - STEP 2: Does the patient require the assistance of a helper? Yes. BOWEL MANAGEMENT - STEP 3: How much assistance does the patient require from the helper? Patient requires minimal contact assist ance / incidental help to maintain an external device such as removing / applying wafer BOWEL MANAGEMENT - SCORE: 4-MIN TRANSFERS: BED, CHAIR, WHEELCHAIR: TRANSFERS: BED, CHAIR, WHEELCHAIR - STEP 1: Does the patient require assistance with bed, chair, or wheelchair transfers? Yes. TRANSFERS: BED, CHAIR, WHEELCHAIR - STEP 2: Does the patient require the assistance of a helper? Yes. TRANSFERS: BED, CHAIR, WHEELCHAIR - STEP 3: How much assistance does the patient require from the helper? Steadying/guiding assistance TRANSFERS: BED, CHAIR, WHEELCHAIR - SCORE: 4-MIN TRANSFERS: TOILET: TRANSFERS: TOILET - STEP 1: Does the patient require assistance with toilet transfers? Yes. TRANSFERS: TOILET - STEP 2: Does the patient require the assistance of a helper? Yes. TRANSFERS: TOILET - STEP 3: How much assistance does the patient require from the helper? Only supervision, cuing, coaxing, OR he lp to set out transfer equipment or to lock brakes and/or lift foot rests TRANSFERS: TOILET - SCORE: 5-SUP TRANSFERS: SHOWER: Activity did not occur on this shift TRANSFERS: SHOWER - SCORE: 0-UNK TRANSFERS: TUB: Activity did not occur on this shift TRANSFERS: TUB - SCORE: 0-UNK LOCOMOTION: WALK: Activity did not occur on this shift LOCOMOTION: WALK - SCORE: 0-UNK LOCOMOTION: WHEELCHAIR: Activity did not occur on this shift LOCOMOTION: WHEELCHAIR - SCORE: 0-UNK COMPREHENSION: COMPREHENSION - STEP 1: Does the patient require help to understand complex and abstract ideas (such as current events, finan christian, discharge planning, medical issues, relationships, etc)? Yes. COMPREHENSION - STEP 2: Does the patient require help to understand questions or statements about basic needs or ideas (such as hunger, thirst, sleep, safety, daily schedule, room location, or discomfort) half or more of the t sari? No. COMPREHENSION - STEP 3: How often does the patient need help to understand directions and conversation about basic needs? 10% - 24% of the time COMPREHENSION - SCORE: 4-MIN EXPRESSION EXPRESSION - STEP 1: Does the patient require help expressing complex and abstract ideas (such as current events, finances , discharge planning, medical issues, relationships, etc)? Yes. EXPRESSION - STEP 2: Does the patient require help to express basic necessities or ideas (such as hunger, thirst, sleep, s afety, daily schedule, room location, or discomfort) half or more of the time? No. EXPRESSION - STEP 3: How often does the patient need help to express directions and conversation about basic needs? Less t [place] 10% of the time EXPRESSION - SCORE: 5-SUP SOCIAL INTERACTION: SOCIAL INTERACTION - STEP 1: Does the patient require a helper to interact with others in social and therapeutic situations? No. SOCIAL INTERACTION - STEP 2: Does the patient need extra time in social situations, OR does s/he interact with staff, other patien ts, and family members ONLY in structured environments, OR does s/he require medication for social in teraction? Yes, patient needs extra time SOCIAL INTERACTION - SCORE: 6-MANOLO PROBLEM SOLVING: PROBLEM SOLVING - STEP 1: Does the patient need help to solve complex problems such as managing a checking account or confronti ng interpersonal problems? Yes. PROBLEM SOLVING - STEP 2: Does the patient solve basic routine problems half or more of the time? Yes. PROBLEM SOLVING - STEP 3: How often does the patient need help to solve basic routine problems? 10%-24% of the time PROBLEM SOLVING - SCORE: 4-MIN MEMORY: MEMORY - STEP 1: Does the patient need help to remember frequently encountered people, daily routines, and executing r equests? Yes. MEMORY - STEP 2: How often does the patient need help to remember frequently encountered people, daily routines, and e xecuting requests? 10% - 24% of the time MEMORY - SCORE: 4-MIN SIGNATURE PANEL: The following modified sections: Eating - Score, Grooming - Score, Dressing - Upper Body - Score, Shashank ssing - Lower Body - Score, Toileting - Score, Bladder Management - Score, Bowel Management - Score, Transfers: Bed, Chair, Wheelchair - Score, Transfers: Toilet - Score, Transfers: Shower - Score, Alvarado sfers: Tub - Score, Locomotion: Walk - Score, Locomotion: Wheelchair - Score, Comprehension - Score, Expression - Score, Social Interaction - Score, Problem Solving - Score, Memory - Score were [electro nically] signed by Crys Benz CNA on SunMar 20 2018 02:44:20 GMT-0500 (Central Daylight Time)
[2018-03-20] MEDS: HEPARIN 5000 UNIT/ML 1 ML VIAL SQ SCH ×2 (06:05→18:07)
[2018-03-20] MEDS: PANTOPRAZOLE 40MG TABLET PO SCH (07:13)
[2018-03-20] MEDS: CODEINE 30MG/APAP 300MG TAB PO PRN ×3 (08:48→19:53)
[2018-03-20] MEDS: GABAPENTIN 300 MG CAP PO SCH ×2 (08:49→19:54)
[2018-03-20] MEDS: ASPIRIN EC 81 MG TAB PO SCH (08:49)
[2018-03-20] MEDS: DOCOSAHEXANOIC AC/EPA 1000 MG PO SCH (08:49)
[2018-03-20] MEDS: FERROUS SULFATE 325 MG TAB PO SCH ×2 (08:49→19:53)
[2018-03-20] MEDS: FINASTERIDE 5 MG TAB PO SCH (08:56)
[2018-03-20] MEDS: ENSURE HIGH PROTEIN 237 ML CAN PO SCH ×3 (08:56→20:00)
[2018-03-20] MEDS: levoFLOXacin 500 MG TAB PO SCH (10:11)
[2018-03-20] MEDS: guaiFENesin 100 MG/5 ML UCUP PO PRN ×2 (10:40→19:56)
--- NOTE | 2018-03-20 14:44 | RAD REPORT ---
EXAM DESCRIPTION: Reyna Single View03/20/2018 2:35 pm CLINICAL HISTORY: Shortness of breath COMPARISON: March 18, 2018 FINDINGS: A few areas of subsegmental atelectasis are present within the lung bases without signific ant change. The remainder lungs appear clear of acute infiltrate. The heart is normal size. Pacemaker leads are in place IMPRESSION: A few areas of subsegmental atelectasis without change from the prior exam
[2018-03-20] MEDS: FUROSEMIDE 20 MG TABLET PO SCH (15:45)
--- NOTE | 2018-03-20 15:49 | FAST ---
SHIFT START DATE/TIME: 03/20/2018 07:00 (CDT) SHIFT END DATE/TIME: 03/20/2018 19:00 (CDT) NAME JOSE ALEXANDRA DATE OF : 1935 DATE OF ADMISSION: 03/15/2018 13:31 (CDT) PHONE: AGE: 82 N# [id number] GENDER: Male ENCOUNTER PHYSICIAN: Dr. Luca Casas M.D. ADMISSION DIAGNOSIS: - Orthopaedic Disorders 08 - Other Orthopaedic (08.9) R shoulder dislocation. EATING: EATING - STEP 1: Does the patient require assistance when eating? Yes. EATING - STEP 2: Does the patient require the assistance of a helper? Yes. EATING - STEP 3: Does the patient perform half or more of the eating tasks? Yes. EATING - STEP 4: Does the patient need only supervision, cuing, coaxing OR help to apply an orthosis OR help to cut fo od, open containers, pour liquids, or butter bread? Yes. EATING - SCORE: 5-SUP GROOMING: Comb/brush hair Wash, rinse, and dry face Wash, rinse, and dry hands GROOMING - STEP 1: Does the patient require assistance when grooming? Yes. GROOMING - STEP 2: Does the patient require the assistance of a helper? Yes. GROOMING - STEP 3: How much assistance does the patient require from the helper? Only prior equipment preparation/set up from the helper GROOMING - SCORE: 5-SUP BATHING: Activity did not occur on this shift BATHING - SCORE: 0-UNK DRESSING - UPPER BODY: Activity did not occur on this shift ARTICLES SCORE Total number of steps: 0 DRESSING - UPPER BODY - SCORE: 0-UNK DRESSING - LOWER BODY: Elastic waist pants (three steps) Underwear (three steps) ARTICLES SCORE Total number of steps: 6 DRESSING - LOWER BODY - STEP 1: Does the patient require help when dressing below the waist? Yes. DRESSING - LOWER BODY - STEP 2: Does the patient require the assistance of a helper? Yes. DRESSING - LOWER BODY - STEP 3: Does the helper touch the patient while dressing? Yes. DRESSING - LOWER BODY - STEP 4: How many of the total steps does the patient complete on his/her own? 0 DRESSING - LOWER BODY - STEP 5: Does patient require total assistance for dressing below the waist such as the helper holding clothin g and performing basically all the activities? Yes. DRESSING - LOWER BODY - SCORE: 1-DEP TOILETING: TOILETING - STEP 1: Does the patient require assistance with toileting? Yes. TOILETING - STEP 2: Does the patient require the assistance of a helper? Yes. TOILETING - STEP 3: How much assistance does the patient require from the helper? Hands-on assistance from the helper TOILETING - STEP 4: Of the 3 tasks: 1) Adjusting clothing prior to use, 2) Cleansing of perineal area, 3) Adjusting clot aleksandr after use; How many tasks does the patient perform WITHOUT assistance of the helper? No tasks; h elper performs all three tasks TOILETING - SCORE: 1-DEP BLADDER MANAGEMENT: [place] removes incontinent device (Depends, pull ups, etc.); cleans the patient after accident / inco ntinent episode; and, applies new incontinent device. BLADDER MANAGEMENT - SCORE: 1-DEP BLADDER MANAGEMENT - FREQUENCY OF ACCIDENTS: BLADDER MANAGEMENT(FA) - STEP 1: How many accidents has the patient had during the current shift? 1 BOWEL MANAGEMENT: BOWEL MANAGEMENT - STEP 1: Does the patient control bowels completely and intentionally without equipment devices or medications AND is always continent? No. BOWEL MANAGEMENT - STEP 2: Does the patient require the assistance of a helper? No, patient requires medication for control such as stool softeners, suppositories, laxatives, enemas, or OTC medications BOWEL MANAGEMENT - SCORE: 6-MANOLO BOWEL MANAGEMENT - FREQUENCY OF ACCIDENTS: BOWEL MANAGEMENT(FA) - STEP 1: How many accidents has the patient had during the current shift? 0 TRANSFERS: BED, CHAIR, WHEELCHAIR: TRANSFERS: BED, CHAIR, WHEELCHAIR - STEP 1: Does the patient require assistance with bed, chair, or wheelchair transfers? Yes. TRANSFERS: BED, CHAIR, WHEELCHAIR - STEP 2: Does the patient require the assistance of a helper? No. Patient only requires an assistive device fo r bed, chair, wheelchair transfers such as a sliding board, grab bar, or brace, OR s/he takes more th an reasonable time, OR there is a safety concern when s/he performs the transfers TRANSFERS: BED, CHAIR, WHEELCHAIR - SCORE: 6-MANOLO TRANSFERS: TOILET: TRANSFERS: TOILET - STEP 1: Does the patient require assistance with toilet transfers? Yes. TRANSFERS: TOILET - STEP 2: Does the patient require the assistance of a helper? Yes. TRANSFERS: TOILET - STEP 3: How much assistance does the patient require from the helper? Patient performs half or more of the tr ansferring tasks TRANSFERS: TOILET - STEP 4: Does the patient need only incidental help such as contact guard or steadying during toilet transfer? Yes. TRANSFERS: TOILET - SCORE: 4-MIN TRANSFERS: SHOWER: Activity did not occur on this shift TRANSFERS: SHOWER - SCORE: 0-UNK TRANSFERS: TUB: Activity did not occur on this shift TRANSFERS: TUB - SCORE: 0-UNK LOCOMOTION: WALK: Activity did not occur on this shift LOCOMOTION: WALK - SCORE: 0-UNK LOCOMOTION: WHEELCHAIR: LOCOMOTION: WHEELCHAIR - STEP 1: Does the patient need help to go 150 feet in a wheelchair? Yes. LOCOMOTION: WHEELCHAIR - STEP 2: How much assistance does the patient need from the helper? Only supervision, cuing, or coaxing LOCOMOTION: WHEELCHAIR - SCORE: 5-SUP COMPREHENSION: COMPREHENSION: TYPE: Both COMPREHENSION - STEP 1: Does the patient require help to understand complex and abstract ideas (such as current events, finan christian, discharge planning, medical issues, relationships, etc)? Yes. COMPREHENSION - STEP 2: Does the patient require help to understand questions or statements about basic needs or ideas (such as hunger, thirst, sleep, safety, daily schedule, room location, or discomfort) half or more of the t sari? No. COMPREHENSION - STEP 3: How often does the patient need help to understand directions and conversation about basic needs? Les s than 10% of the time COMPREHENSION - SCORE: 5-SUP EXPRESSION EXPRESSION: TYPE: Both EXPRESSION - STEP 1: Does the patient require help expressing complex and abstract ideas (such as current events, finances , discharge planning, medical issues, relationships, etc)? Yes. EXPRESSION - STEP 2: Does the patient require help to express basic necessities or ideas (such as hunger, thirst, sleep, s afety, daily schedule, room location, or discomfort) half or more of the time? No. EXPRESSION - STEP 3: How often does the patient need help to express directions and conversation about basic needs? Less t [place] 10% of the time EXPRESSION - SCORE: 5-SUP SOCIAL INTERACTION: SOCIAL INTERACTION - STEP 1: Does the patient require a helper to interact with others in social and therapeutic situations? No. SOCIAL INTERACTION - STEP 2: Does the patient need extra time in social situations, OR does s/he interact with staff, other patien ts, and family members ONLY in structured environments, OR does s/he require medication for social in teraction? Yes, patient needs extra time SOCIAL INTERACTION - SCORE: 6-MANOLO PROBLEM SOLVING: PROBLEM SOLVING - STEP 1: Does the patient need help to solve complex problems such as managing a checking account or confronti ng interpersonal problems? Yes. PROBLEM SOLVING - STEP 2: Does the patient solve basic routine problems half or more of the time? Yes. PROBLEM SOLVING - STEP 3: How often does the patient need help to solve basic routine problems? Less than 10% of the time PROBLEM SOLVING - SCORE: 5-SUP MEMORY: MEMORY - STEP 1: Does the patient need help to remember frequently encountered people, daily routines, and executing r equests? No. MEMORY - STEP 2: Does the patient have slight difficulty recognizing frequently encountered people, daily routines, or executing requests without the need for repetition or using self-initiated or environmental cues to remember? Yes. MEMORY - SCORE: 6-MANOLO SIGNATURE PANEL: The following modified sections: Eating - Score, Grooming - Score, Bathing - Score, Dressing - Upper Body - Score, Dressing - Lower Body - Score, Toileting - Score, Bladder Management - Score, Bowel Man agement - Score, Transfers: Bed, Chair, Wheelchair - Score, Transfers: Toilet - Score, Transfers: Leonela wer - Score, Transfers: Tub - Score, Locomotion: Walk - Score, Locomotion: Wheelchair - Score, Compre hension - Score, Expression - Score, Social Interaction - Score, Problem Solving - Score, Memory - Sc ore were [electronically] signed by Ingrid Lackey C.N.A. on SunMar 20 2018 14:51:41 GMT-0500 ([facility] [place] Day[facility] Time)
--- NOTE | 2018-03-20 16:10 | FAST ---
ENCOUNTER DATE AND TIME: 03/20/2018 08:00 (CDT) NAME JOSE ALEXANDRA DATE OF : 1935 DATE OF ADMISSION: 03/15/2018 13:31 (CDT) PHONE: AGE: 82 SSN# [id number] GENDER: Male ENCOUNTER PHYSICIAN: Dr. Luca Casas M.D. ADMISSION DIAGNOSIS: - Orthopaedic Disorders 08 - Other Orthopaedic (08.9) R shoulder dislocation. EATING: Activity did not occur on this shift EATING - SCORE: 0-UNK GROOMING: Activity did not occur on this shift GROOMING - SCORE: 0-UNK BATHING: Activity did not occur on this shift BATHING - SCORE: 0-UNK DRESSING - UPPER BODY: Activity did not occur on this shift ARTICLES SCORE Total number of steps: 0 DRESSING - UPPER BODY - SCORE: 0-UNK DRESSING - LOWER BODY: Activity did not occur on this shift ARTICLES SCORE Total number of steps: 0 DRESSING - LOWER BODY - SCORE: 0-UNK TOILETING: Activity did not occur on this shift TOILETING - SCORE: 0-UNK BLADDER MANAGEMENT: Activity did not occur on this shift BLADDER MANAGEMENT - SCORE: 7-IND BOWEL MANAGEMENT: Activity did not occur on this shift BOWEL MANAGEMENT - SCORE: 7-IND TRANSFERS: BED, CHAIR, WHEELCHAIR: Activity did not occur on this shift TRANSFERS: BED, CHAIR, WHEELCHAIR - SCORE: 0-UNK TRANSFERS: TOILET: Activity did not occur on this shift TRANSFERS: TOILET - SCORE: 0-UNK TRANSFERS: SHOWER: Activity did not occur on this shift TRANSFERS: SHOWER - SCORE: 0-UNK TRANSFERS: TUB: Activity did not occur on this shift TRANSFERS: TUB - SCORE: 0-UNK LOCOMOTION: WALK: Activity did not occur on this shift LOCOMOTION: WALK - SCORE: 0-UNK LOCOMOTION: WHEELCHAIR: Activity did not occur on this shift LOCOMOTION: WHEELCHAIR - SCORE: 0-UNK LOCOMOTION: STAIRS: Activity did not occur on this shift LOCOMOTION: STAIRS - SCORE: 0-UNK COMPREHENSION: COMPREHENSION - SCORE: 0-UNK EXPRESSION EXPRESSION - SCORE: 0-UNK SOCIAL INTERACTION: SOCIAL INTERACTION - SCORE: 0-UNK PROBLEM SOLVING: PROBLEM SOLVING - SCORE: 0-UNK MEMORY: MEMORY - SCORE: 0-UNK SIGNATURE PANEL: The following modified sections: Eating - Score, Grooming - Score, Bathing - Score, Dressing - Upper Body - Score, Dressing - Lower Body - Score, Toileting - Score, Transfers: Bed, Chair, Wheelchair - S core, Transfers: Toilet - Score, Transfers: Shower - Score, Transfers: Tub - Score, Comprehension - S core, Expression - Score, Social Interaction - Score, Problem Solving - Score, Memory - Score were [e lectronically] signed by DIANE Hunter on SunMar 20 2018 15:12:39 T-0500 (Formerly [facility] Time)
--- NOTE | 2018-03-20 16:49 | FAST ---
ENCOUNTER DATE AND TIME: 03/20/2018 08:00 (CDT) NAME JOSE ALEXANDRA DATE OF : 1935 DATE OF ADMISSION: 03/15/2018 13:31 (CDT) PHONE: AGE: 82 N# [id number] GENDER: Male ENCOUNTER PHYSICIAN: Dr. Luca Casas M.D. ADMISSION DIAGNOSIS: - Orthopaedic Disorders 08 - Other Orthopaedic (08.9) R shoulder dislocation. EATING: Activity did not occur on this shift EATING - SCORE: 0-UNK GROOMING: Activity did not occur on this shift GROOMING - SCORE: 0-UNK BATHING: Activity did not occur on this shift BATHING - SCORE: 0-UNK DRESSING - UPPER BODY: Activity did not occur on this shift Patient is not dressing in public clothing ARTICLES SCORE Total number of steps: 0 DRESSING - UPPER BODY - SCORE: 0-UNK DRESSING - LOWER BODY: Activity did not occur on this shift Patient is not dressing in public clothing ARTICLES SCORE Total number of steps: 0 DRESSING - LOWER BODY - SCORE: 0-UNK TOILETING: Activity did not occur on this shift TOILETING - SCORE: 0-UNK BLADDER MANAGEMENT: Activity did not occur on this shift BLADDER MANAGEMENT - SCORE: 7-IND BOWEL MANAGEMENT: Activity did not occur on this shift BOWEL MANAGEMENT - SCORE: 7-IND TRANSFERS: BED, CHAIR, WHEELCHAIR: TRANSFERS: BED, CHAIR, WHEELCHAIR - STEP 1: Does the patient require assistance with bed, chair, or wheelchair transfers? Yes. TRANSFERS: BED, CHAIR, WHEELCHAIR - STEP 2: Does the patient require the assistance of a helper? Yes. TRANSFERS: BED, CHAIR, WHEELCHAIR - STEP 3: How much assistance does the patient require from the helper? Only supervision TRANSFERS: BED, CHAIR, WHEELCHAIR - SCORE: 5-SUP TRANSFERS: TOILET: Activity did not occur on this shift TRANSFERS: TOILET - SCORE: 0-UNK TRANSFERS: SHOWER: Activity did not occur on this shift TRANSFERS: SHOWER - SCORE: 0-UNK TRANSFERS: TUB: Activity did not occur on this shift TRANSFERS: TUB - SCORE: 0-UNK LOCOMOTION: WALK: LOCOMOTION: WALK - STEP 1: Does the patient need help to walk 150 feet? Yes. LOCOMOTION: WALK - STEP 2: How much assistance does the patient require to walk a minimum of 150 feet? Only incidental help such as contact guarding or steadying LOCOMOTION: WALK - SCORE: 4-MIN LOCOMOTION: WHEELCHAIR: Activity did not occur on this shift LOCOMOTION: WHEELCHAIR - SCORE: 0-UNK LOCOMOTION: STAIRS: Activity did not occur on this shift LOCOMOTION: STAIRS - SCORE: 0-UNK COMPREHENSION: COMPREHENSION - SCORE: 0-UNK EXPRESSION EXPRESSION - SCORE: 0-UNK SOCIAL INTERACTION: SOCIAL INTERACTION - SCORE: 0-UNK PROBLEM SOLVING: PROBLEM SOLVING - SCORE: 0-UNK MEMORY: MEMORY - SCORE: 0-UNK SIGNATURE PANEL: The following modified sections: Transfers: Bed, Chair, Wheelchair - Score, Transfers: Toilet - Score , Locomotion: Walk - Score, Locomotion: Wheelchair - Score, Locomotion: Stairs - Score were [electron ically] signed by Rai Dunlap PTA on SunMar 20 2018 15:51:18 GMT-0500 (Central Daylight Time)
--- NOTE | 2018-03-20 16:54 | FAST ---
ENCOUNTER DATE AND TIME: 03/20/2018 08:00 (CDT) NAME JOSE ALEXANDRA DATE OF : 1935 DATE OF ADMISSION: 03/15/2018 13:31 (CDT) PHONE: AGE: 82 SSN# [id number] GENDER: Male ENCOUNTER PHYSICIAN: Dr. Luca Casas M.D. ADMISSION DIAGNOSIS: - Orthopaedic Disorders 08 - Other Orthopaedic (08.9) R shoulder dislocation. EATING: Activity did not occur on this shift EATING - SCORE: 0-UNK GROOMING: Activity did not occur on this shift GROOMING - SCORE: 0-UNK BATHING: Activity did not occur on this shift BATHING - SCORE: 0-UNK DRESSING - UPPER BODY: Activity did not occur on this shift Patient is not dressing in public clothing ARTICLES SCORE Total number of steps: 0 DRESSING - UPPER BODY - SCORE: 0-UNK DRESSING - LOWER BODY: Activity did not occur on this shift Patient is not dressing in public clothing ARTICLES SCORE Total number of steps: 0 DRESSING - LOWER BODY - SCORE: 0-UNK TOILETING: Activity did not occur on this shift TOILETING - SCORE: 0-UNK BLADDER MANAGEMENT: Activity did not occur on this shift BLADDER MANAGEMENT - SCORE: 7-IND BOWEL MANAGEMENT: Activity did not occur on this shift BOWEL MANAGEMENT - SCORE: 7-IND TRANSFERS: BED, CHAIR, WHEELCHAIR: Activity did not occur on this shift TRANSFERS: BED, CHAIR, WHEELCHAIR - SCORE: 0-UNK TRANSFERS: TOILET: Activity did not occur on this shift TRANSFERS: TOILET - SCORE: 0-UNK TRANSFERS: SHOWER: Activity did not occur on this shift TRANSFERS: SHOWER - SCORE: 0-UNK TRANSFERS: TUB: Activity did not occur on this shift TRANSFERS: TUB - SCORE: 0-UNK LOCOMOTION: WALK: Activity did not occur on this shift LOCOMOTION: WALK - SCORE: 0-UNK LOCOMOTION: WHEELCHAIR: Activity did not occur on this shift LOCOMOTION: WHEELCHAIR - SCORE: 0-UNK LOCOMOTION: STAIRS: Activity did not occur on this shift LOCOMOTION: STAIRS - SCORE: 0-UNK COMPREHENSION: COMPREHENSION - STEP 1: Does the patient require help to understand complex and abstract ideas (such as current events, finan christian, discharge planning, medical issues, relationships, etc)? Yes. COMPREHENSION - STEP 2: Does the patient require help to understand questions or statements about basic needs or ideas (such as hunger, thirst, sleep, safety, daily schedule, room location, or discomfort) half or more of the t sari? No. COMPREHENSION - STEP 3: How often does the patient need help to understand directions and conversation about basic needs? 10% - 24% of the time COMPREHENSION - SCORE: 4-MIN EXPRESSION EXPRESSION - STEP 1: Does the patient require help expressing complex and abstract ideas (such as current events, finances , discharge planning, medical issues, relationships, etc)? Yes. EXPRESSION - STEP 2: Does the patient require help to express basic necessities or ideas (such as hunger, thirst, sleep, s afety, daily schedule, room location, or discomfort) half or more of the time? No. EXPRESSION - STEP 3: How often does the patient need help to express directions and conversation about basic needs? 10-24% of the time EXPRESSION - SCORE: 4-MIN SOCIAL INTERACTION: SOCIAL INTERACTION - STEP 1: Does the patient require a helper to interact with others in social and therapeutic situations? Yes. SOCIAL INTERACTION - STEP 2: Does the patient interact appropriately half or more of the time? Yes. SOCIAL INTERACTION - STEP 3: How often does the patient need help to interact appropriately? 10-24% of the time SOCIAL INTERACTION - SCORE: 4-MIN PROBLEM SOLVING: PROBLEM SOLVING - STEP 1: Does the patient need help to solve complex problems such as managing a checking account or confronti ng interpersonal problems? Yes. PROBLEM SOLVING - STEP 2: Does the patient solve basic routine problems half or more of the time? No. PROBLEM SOLVING - STEP 3: Does the patient need help to solve problems all the time or is s/he unable to solve problems? No. Jhon winchester can sometimes solve problems PROBLEM SOLVING - SCORE: 2-MAX MEMORY: MEMORY - STEP 1: Does the patient need help to remember frequently encountered people, daily routines, and executing r equests? Yes. MEMORY - STEP 2: How often does the patient need help to remember frequently encountered people, daily routines, and e xecuting requests? More than 50% of the time MEMORY - STEP 3: Does the patient need help to remember all of the time OR does s/he not effectively recognize and rem ember? No. Patient does not need help all the time MEMORY - SCORE: 2-MAX SIGNATURE PANEL: The following modified sections: Comprehension - Score, Expression - Score, Social Interaction - Scor e, Problem Solving - Score, Memory - Score were [electronically] signed by SHOBHA Lazar on Sun 15:56:05 GMT-0500 (Central Daylight Time)
[2018-03-20] MEDS: RISPERIDONE 0.25 MG TABLET PO SCH (20:00)
[2018-03-20] MEDS: DOCUSATE NA/SENNA CONC 1 TAB PO SCH (20:00)
[2018-03-20] MEDS: ATORVASTATIN 40 MG TAB PO SCH (20:01)
--- NOTE | 2018-03-20 21:26 | R.PN ---
ENCOUNTER DATE AND TIME: 03/20/2018 20:23 (CDT) NAME JOSE ALEXANDRA DATE OF : 1935 DATE OF ADMISSION: 03/15/2018 13:31 (CDT) R shoulder dislocationCHIEF COMPLAINT: Right shoulder dislocation, dysphagia, aspiration of thin liquid SUBJECTIVE: Pt denied any Shortness of Breath. Pt denied any depression. Patient had a productive cough with chest x-ray showing aspiration pneumonia. He is on Levaquin 500 m g daily for 10 days. On nectar thickened consistence. Working with speech therapy. Ambulated 540' wi thout an assistive device. VITAL SIGNS Temperature: 97.6 F SBP/DBP: 138/69 Pulse: 79 Resp: 15 MEDICATION ALLERGIES: Nsaids ENVIRONMENTAL ALLERGIES: None Known - Substance Allergies None Known - Other Allergies None Known NURSING: - Shower allowing shower - Skin care per protocol PRECAUTIONS: - Weight Bearing Precaution NWB right UE - Fall Precaution Bed and chair alarm ACTIVITIES OOB only with supervision THERAPIES: - Occupational Therapy Evaluate and Treat. - Physical Therapy Evaluate and Treat. PHYSICAL EXAM - Gen Alert and awake Lying in bed No apparent distress Oriented to: person, time, and place - Skin No breakdowns No numbness - Eyes No abnormalities - ENMT No abnormalities - Neck No abnormalities - CVS RRR - Chest Mildly decreased breath sounds bilaterally.with productive cough - Resp + upper airway ronchi - Abd +bowel sounds - GI Soft Deferred - No abnormalities - Ext no edema - MSK Normal bulk and tone in the upper and lower extremities - Neuro Moderate right upper extremity weakness with right arm in a sling. - Psych No abnormalities ASSESSMENT: Pt. is a 82 yo Right-handed white male.On 03/05/2018 he was admitted to [facility] with diagnosis R shoulde r dislocation.His impairment category is Orthopaedic Disorders 08 - Other Orthopaedic (08.9).Pre-mor bidly, Pt. was independent/mod-I in Self-Care, Locomotion, Sphincter Control, Transfers Control, Comm unication, and Social Cognition; and he had good Sphincter Control.Currently, he has deficits of Self -Care, Locomotion, Endurance, Safety Awareness, Transfers Control, and Balance.Pt. is now referred to [facility] for acute in-patient rehabilitation in order to maximize patient's functional independence in activities of daily living, strength, ROM, and mobility.- Rehab Goal Patient has realistic goal of being discharged at assistance level 6-Cesar to reside at Home with Fam heriberto/Relatives. MDM/PLAN: - Diet Type Continue Regular - Physical Therapy Decreased range of motion - to improve, our physical therapists will perform initial evaluation of p t's status upon admission and devise an individualized program for increasing patient's Range of Lucian on. Gait dysfunction - to improve, our physical therapists will perform initial evaluation of pt's statu s upon admission and devise an individualized program for Gait Training, and Wheel Chair mobility Inability to transfer - to improve, our physical therapists will perform initial evaluation of pt's status upon admission and devise an individualized program for Bed mobility Need for home safety evaluation - to improve, our physical therapists will perform initial evaluatio n of pt's status upon admission and devise an individualized program for Home Evaluation Need in caregiver upon discharge - to improve, our physical therapists will perform initial evaluati on of pt's status upon admission and devise an individualized program for Caregiver Training New precaution - to improve, our physical therapists will perform initial evaluation of pt's status upon admission and devise an individualized program for Patient precaution education Poor balance - to improve, our physical therapists will perform initial evaluation of pt's status up on admission and devise an individualized program for Balance Training Poor endurance - to improve, our physical therapists will perform initial evaluation of pt's status upon admission and devise an individualized program for Endurance Training Weakness - to improve, our physical therapists will perform initial evaluation of pt's status upon a dmission and devise an individualized program for Aquatic Therapy, Neuromuscular Reeducation, and Str engthening Achieving independence - to improve, our physical therapists will perform initial evaluation of pt's status upon admission and devise an individualized program for Community Reintegration Activities - Diet - Liquid Texture Continue Regular - Tube Feed Continue N/A - Weight Bearing Precaution NWB right UE - Fall Precaution Bed and chair alarm - Skin care per protocol - Diet - Solid Texture Continue Regular - Shower allowing shower - Occupational Therapy ADL deficits - to improve, our occupation therapists will perform initial evaluation of pt's status upon admission and devise an individualized program for Bathing, Bed mobility, Community Reintegratio n, Cooking, Dressing, Eating, Fine Motor Skills, Grooming, Homemaking, Kitchen Mobility, Laundry, Pat ient Education, Safety Awareness, Splinting - Positioning, Transfers(Toilet, Tub, Shower), and Wheel Chair Management Need for director of home care hospice - to improve, our occupation therapists will perform initial evaluation of pt's status upon admission and devise an individualized program for Caregiver Training Weakness - to improve, our occupation therapists will perform initial evaluation of pt's status upon admission and devise an individualized program for Aquatic Therapy, Balance, Endurance, UE ROM, and UE strengthening FUNCTIONAL STATUS: UPDATED AT WEEKLY TEAM CONFERENCE - Bladder Same accident frequency: 7-Ind - No accidents in the past 7 days - Bowel Same accident frequency: 7-Ind - No accidents in the past 7 days - Walking Same score based on distance walked: 2(50-149ft) - Wheelchair Same score based on distance traveled: 0(N/A) FUNCTIONAL STATUS: - Self-Care A. Eating sup B. Grooming sup C. Bathing sup D. Dressing - Upper sup E. Dressing - Lower sup F. Toileting sup - Sphincter Control G: Bladder control Ind H: Bowel control Ind - Transfers Control I. Bed/Chair/Wheelchair sup J. Toilet ADNO K. Tub/Shower ADNO - Locomotion L. Walk/Wheelchair (C) sup L. Walk/Wheelchair (W) sup M. Stairs ADNO - Communication N. Comprehension (B) Cesar O. Expression (B) Cesar - Social Cognition P. Social Interaction Cesar Q. Problem Solving Cesar R. Memory Cesar - Endurance Fair - Balance Fair - Safety Awareness Fair CURRENT FUNC. DEFICITS: Self-Care, Locomotion, Endurance, Safety Awareness, Transfers Control, and Balance SIGNATURE PANEL: (CDT)
[2018-03-21] MEDS: IPRATROPIUM BROM 0.5MG/2.5ML NEB SCH ×4 (02:06→19:47)
[2018-03-21] MEDS: ALBUTEROL 2.5 MG/3 ML NEB SOL NEB SCH ×4 (02:06→19:47)
[2018-03-21] MEDS: CODEINE 30MG/APAP 300MG TAB PO PRN ×5 (02:46→23:46)
--- NOTE | 2018-03-21 04:05 | FAST ---
SHIFT START DATE/TIME: 03/20/2018 19:00 (CDT) SHIFT END DATE/TIME: 03/21/2018 07:00 (CDT) NAME JOSE ALEXANDRA DATE OF : 1935 DATE OF ADMISSION: 03/15/2018 13:31 (CDT) PHONE: AGE: 82 N# [id number] GENDER: Male ENCOUNTER PHYSICIAN: Dr. Luca Casas M.D. ADMISSION DIAGNOSIS: - Orthopaedic Disorders 08 - Other Orthopaedic (08.9) R shoulder dislocation. EATING: Activity did not occur on this shift EATING - SCORE: 0-UNK GROOMING: Activity did not occur on this shift GROOMING - SCORE: 0-UNK BATHING: Activity did not occur on this shift BATHING - SCORE: 0-UNK DRESSING - UPPER BODY: Patient is not dressing in public clothing ARTICLES SCORE Total number of steps: 0 DRESSING - UPPER BODY - SCORE: 0-UNK DRESSING - LOWER BODY: Patient is not dressing in public clothing ARTICLES SCORE Total number of steps: 0 DRESSING - LOWER BODY - SCORE: 0-UNK TOILETING: TOILETING - STEP 1: Does the patient require assistance with toileting? Yes. TOILETING - STEP 2: Does the patient require the assistance of a helper? Yes. TOILETING - STEP 3: How much assistance does the patient require from the helper? Hands-on assistance from the helper TOILETING - STEP 4: Of the 3 tasks: 1) Adjusting clothing prior to use, 2) Cleansing of perineal area, 3) Adjusting clot aleksandr after use; How many tasks does the patient perform WITHOUT assistance of the helper? No tasks; h elper performs all three tasks TOILETING - SCORE: 1-DEP BLADDER MANAGEMENT: [place]ler removes incontinent device (Depends, pull ups, etc.); cleans the patient after accident / inco ntinent episode; and, applies new incontinent device. BLADDER MANAGEMENT - SCORE: 1-DEP BLADDER MANAGEMENT - FREQUENCY OF ACCIDENTS: BLADDER MANAGEMENT(FA) - STEP 1: How many accidents has the patient had during the current shift? 2 BOWEL MANAGEMENT: Activity did not occur on this shift BOWEL MANAGEMENT - SCORE: 7-IND TRANSFERS: BED, CHAIR, WHEELCHAIR: TRANSFERS: BED, CHAIR, WHEELCHAIR - STEP 1: Does the patient require assistance with bed, chair, or wheelchair transfers? Yes. TRANSFERS: BED, CHAIR, WHEELCHAIR - STEP 2: Does the patient require the assistance of a helper? Yes. TRANSFERS: BED, CHAIR, WHEELCHAIR - STEP 3: How much assistance does the patient require from the helper? Lifting of the legs TRANSFERS: BED, CHAIR, WHEELCHAIR - STEP 4: How many legs does the patient require the helper to lift? both legs TRANSFERS: BED, CHAIR, WHEELCHAIR - SCORE: 3-MOD TRANSFERS: TOILET: Activity did not occur on this shift TRANSFERS: TOILET - SCORE: 0-UNK TRANSFERS: SHOWER: Activity did not occur on this shift TRANSFERS: SHOWER - SCORE: 0-UNK TRANSFERS: TUB: Activity did not occur on this shift TRANSFERS: TUB - SCORE: 0-UNK LOCOMOTION: WALK: Activity did not occur on this shift LOCOMOTION: WALK - SCORE: 0-UNK LOCOMOTION: WHEELCHAIR: Activity did not occur on this shift LOCOMOTION: WHEELCHAIR - SCORE: 0-UNK COMPREHENSION: COMPREHENSION - STEP 1: Does the patient require help to understand complex and abstract ideas (such as current events, finan christian, discharge planning, medical issues, relationships, etc)? Yes. COMPREHENSION - STEP 2: Does the patient require help to understand questions or statements about basic needs or ideas (such as hunger, thirst, sleep, safety, daily schedule, room location, or discomfort) half or more of the t sari? No. COMPREHENSION - STEP 3: How often does the patient need help to understand directions and conversation about basic needs? 10% - 24% of the time COMPREHENSION - SCORE: 4-MIN EXPRESSION EXPRESSION - STEP 1: Does the patient require help expressing complex and abstract ideas (such as current events, finances , discharge planning, medical issues, relationships, etc)? Yes. EXPRESSION - STEP 2: Does the patient require help to express basic necessities or ideas (such as hunger, thirst, sleep, s afety, daily schedule, room location, or discomfort) half or more of the time? No. EXPRESSION - STEP 3: How often does the patient need help to express directions and conversation about basic needs? 10-24% of the time EXPRESSION - SCORE: 4-MIN SOCIAL INTERACTION: SOCIAL INTERACTION - STEP 1: Does the patient require a helper to interact with others in social and therapeutic situations? No. SOCIAL INTERACTION - STEP 2: Does the patient need extra time in social situations, OR does s/he interact with staff, other patien ts, and family members ONLY in structured environments, OR does s/he require medication for social in teraction? Yes, patient needs extra time SOCIAL INTERACTION - SCORE: 6-MANOLO PROBLEM SOLVING: PROBLEM SOLVING - STEP 1: Does the patient need help to solve complex problems such as managing a checking account or confronti ng interpersonal problems? Yes. PROBLEM SOLVING - STEP 2: Does the patient solve basic routine problems half or more of the time? Yes. PROBLEM SOLVING - STEP 3: How often does the patient need help to solve basic routine problems? 10%-24% of the time PROBLEM SOLVING - SCORE: 4-MIN MEMORY: MEMORY - STEP 1: Does the patient need help to remember frequently encountered people, daily routines, and executing r equests? Yes. MEMORY - STEP 2: How often does the patient need help to remember frequently encountered people, daily routines, and e xecuting requests? 25% - 49% of the time MEMORY - SCORE: 3-MOD SIGNATURE PANEL: The following modified sections: Eating - Score, Grooming - Score, Dressing - Upper Body - Score, Shashank ssing - Lower Body - Score, Toileting - Score, Bladder Management - Score, Bowel Management - Score, Transfers: Bed, Chair, Wheelchair - Score, Transfers: Toilet - Score, Transfers: Shower - Score, Alvarado sfers: Tub - Score, Locomotion: Walk - Score, Locomotion: Wheelchair - Score, Comprehension - Score, Expression - Score, Social Interaction - Score, Problem Solving - Score, Memory - Score were [electro nically] signed by Crys Benz CNA on SunMar 21 2018 03:05:15 GMT-0500 (Central Daylight Time)
[2018-03-21 06:14] LABS: Absolute Lymphocytes (CBC) 1.1 K/uL (0.7-4.9); Absolute Monocytes 0.6 K/uL (0.1-1.3); Absolute Neutrophil 6.6 K/uL (1.8-8.0); Basophils % 0.5 % (0-1.3); Lymphocytes % 13.2 % (15.3-44.8); MCH 31.3 pg (27.0-35.0); MCV 93.5 fL (80-100); MPV 8.3 fL (7.6-11.3); Monocytes % 7.2 % (3.3-12.3); RBC Red Blood Cell Count 2.88 M/uL (4.33-5.43)
[2018-03-21 06:28] LABS: Albumin 2.9 g/dL (3.2-5.5); Prealbumin 15.3 mg/dl (18-38)
[2018-03-21] MEDS: PANTOPRAZOLE 40MG TABLET PO SCH (06:42)
[2018-03-21] MEDS: GABAPENTIN 300 MG CAP PO SCH ×2 (08:42→20:59)
[2018-03-21] MEDS: DOCOSAHEXANOIC AC/EPA 1000 MG PO SCH (08:42)
[2018-03-21] MEDS: FUROSEMIDE 20 MG TABLET PO SCH (08:43)
[2018-03-21] MEDS: FERROUS SULFATE 325 MG TAB PO SCH ×2 (08:43→20:59)
[2018-03-21] MEDS: FINASTERIDE 5 MG TAB PO SCH (08:44)
[2018-03-21] MEDS: ASPIRIN EC 81 MG TAB PO SCH (08:45)
[2018-03-21] MEDS: ENSURE HIGH PROTEIN 237 ML CAN PO SCH ×2 (08:45→21:02)
[2018-03-21] MEDS: HEPARIN 5000 UNIT/ML 1 ML VIAL SQ SCH ×2 (09:44→18:30)
[2018-03-21] MEDS: levoFLOXacin 500 MG TAB PO SCH (10:07)
[2018-03-21] MEDS: guaiFENesin 100 MG/5 ML UCUP PO PRN ×2 (13:11→21:00)
--- NOTE | 2018-03-21 14:53 | RAD REPORT ---
EXAM DESCRIPTION: RAD - Barium Swallow Modified - 03/21/2018 2:45 pm CLINICAL HISTORY: Difficulty swallowing COMPARISON: March 18 modified barium swallow TECHNIQUE: The patient was given liquid, semi-solid and solid forms of barium. Lateral view fluorosc opic imaging was performed in conjunction with [facility]. FINDINGS: Laryngeal penetration was again observed. No aspiration confirmed. Contrast in the vallecu lae and piriform sinuses was present. This was slightly less than seen previously. Patient continues to show delayed swallow reflex. Ingested pill showed prolonged retention within the valleculae IMPRESSION: Laryngeal penetration without aspiration. Additional findings detailed above and on speech pathology report.
[2018-03-21] MEDS ORDERED: FUROSEMIDE 20 MG TABLET PO SCH (16:00)
--- NOTE | 2018-03-21 17:15 | FAST ---
SHIFT START DATE/TIME: 03/21/2018 07:00 (CDT) SHIFT END DATE/TIME: 03/21/2018 19:00 (CDT) NAME JOSE ALEXANDRA DATE OF : 1935 DATE OF ADMISSION: 03/15/2018 13:31 (CDT) PHONE: AGE: 82 N# [id number] GENDER: Male ENCOUNTER PHYSICIAN: Dr. Luca Casas M.D. ADMISSION DIAGNOSIS: - Orthopaedic Disorders 08 - Other Orthopaedic (08.9) R shoulder dislocation. EATING: EATING - STEP 1: Does the patient require assistance when eating? Yes. EATING - STEP 2: Does the patient require the assistance of a helper? Yes. EATING - STEP 3: Does the patient perform half or more of the eating tasks? Yes. EATING - STEP 4: Does the patient need only supervision, cuing, coaxing OR help to apply an orthosis OR help to cut fo od, open containers, pour liquids, or butter bread? Yes. EATING - SCORE: 5-SUP GROOMING: Comb/brush hair Wash, rinse, and dry face Wash, rinse, and dry hands GROOMING - STEP 1: Does the patient require assistance when grooming? Yes. GROOMING - STEP 2: Does the patient require the assistance of a helper? Yes. GROOMING - STEP 3: How much assistance does the patient require from the helper? Only prior equipment preparation/set up from the helper GROOMING - SCORE: 5-SUP BATHING: Activity did not occur on this shift BATHING - SCORE: 0-UNK DRESSING - UPPER BODY: Activity did not occur on this shift ARTICLES SCORE Total number of steps: 0 DRESSING - UPPER BODY - SCORE: 0-UNK DRESSING - LOWER BODY: Elastic waist pants (three steps) Underwear (three steps) ARTICLES SCORE Total number of steps: 6 DRESSING - LOWER BODY - STEP 1: Does the patient require help when dressing below the waist? Yes. DRESSING - LOWER BODY - STEP 2: Does the patient require the assistance of a helper? Yes. DRESSING - LOWER BODY - STEP 3: Does the helper touch the patient while dressing? Yes. DRESSING - LOWER BODY - STEP 4: How many of the total steps does the patient complete on his/her own? 0 DRESSING - LOWER BODY - STEP 5: Does patient require total assistance for dressing below the waist such as the helper holding clothin g and performing basically all the activities? Yes. DRESSING - LOWER BODY - SCORE: 1-DEP TOILETING: TOILETING - STEP 1: Does the patient require assistance with toileting? Yes. TOILETING - STEP 2: Does the patient require the assistance of a helper? Yes. TOILETING - STEP 3: How much assistance does the patient require from the helper? Hands-on assistance from the helper TOILETING - STEP 4: Of the 3 tasks: 1) Adjusting clothing prior to use, 2) Cleansing of perineal area, 3) Adjusting clot aleksandr after use; How many tasks does the patient perform WITHOUT assistance of the helper? No tasks; h elper performs all three tasks TOILETING - SCORE: 1-DEP BLADDER MANAGEMENT: [place] removes incontinent device (Depends, pull ups, etc.); cleans the patient after accident / inco ntinent episode; and, applies new incontinent device. BLADDER MANAGEMENT - SCORE: 1-DEP BLADDER MANAGEMENT - FREQUENCY OF ACCIDENTS: BLADDER MANAGEMENT(FA) - STEP 1: How many accidents has the patient had during the current shift? 1 BOWEL MANAGEMENT: Patient has accident (fecal oozing, colostomy leakage, bedpan spill, etc.) and [place] changes patient 's linen or clothing. BOWEL MANAGEMENT - SCORE: 1-DEP BOWEL MANAGEMENT - FREQUENCY OF ACCIDENTS: BOWEL MANAGEMENT(FA) - STEP 1: How many accidents has the patient had during the current shift? 1 TRANSFERS: BED, CHAIR, WHEELCHAIR: TRANSFERS: BED, CHAIR, WHEELCHAIR - STEP 1: Does the patient require assistance with bed, chair, or wheelchair transfers? Yes. TRANSFERS: BED, CHAIR, WHEELCHAIR - STEP 2: Does the patient require the assistance of a helper? Yes. TRANSFERS: BED, CHAIR, WHEELCHAIR - STEP 3: How much assistance does the patient require from the helper? Steadying/guiding assistance TRANSFERS: BED, CHAIR, WHEELCHAIR - SCORE: 4-MIN TRANSFERS: TOILET: TRANSFERS: TOILET - STEP 1: Does the patient require assistance with toilet transfers? Yes. TRANSFERS: TOILET - STEP 2: Does the patient require the assistance of a helper? Yes. TRANSFERS: TOILET - STEP 3: How much assistance does the patient require from the helper? Patient performs half or more of the tr ansferring tasks TRANSFERS: TOILET - STEP 4: Does the patient need only incidental help such as contact guard or steadying during toilet transfer? Yes. TRANSFERS: TOILET - SCORE: 4-MIN TRANSFERS: SHOWER: Activity did not occur on this shift TRANSFERS: SHOWER - SCORE: 0-UNK TRANSFERS: TUB: Activity did not occur on this shift TRANSFERS: TUB - SCORE: 0-UNK LOCOMOTION: WALK: Activity did not occur on this shift LOCOMOTION: WALK - SCORE: 0-UNK LOCOMOTION: WHEELCHAIR: Activity did not occur on this shift LOCOMOTION: WHEELCHAIR - SCORE: 0-UNK COMPREHENSION: COMPREHENSION: TYPE: Both COMPREHENSION - STEP 1: Does the patient require help to understand complex and abstract ideas (such as current events, finan christian, discharge planning, medical issues, relationships, etc)? Yes. COMPREHENSION - STEP 2: Does the patient require help to understand questions or statements about basic needs or ideas (such as hunger, thirst, sleep, safety, daily schedule, room location, or discomfort) half or more of the t sari? No. COMPREHENSION - STEP 3: How often does the patient need help to understand directions and conversation about basic needs? Les s than 10% of the time COMPREHENSION - SCORE: 5-SUP EXPRESSION EXPRESSION: TYPE: Both EXPRESSION - STEP 1: Does the patient require help expressing complex and abstract ideas (such as current events, finances , discharge planning, medical issues, relationships, etc)? Yes. EXPRESSION - STEP 2: Does the patient require help to express basic necessities or ideas (such as hunger, thirst, sleep, s afety, daily schedule, room location, or discomfort) half or more of the time? No. EXPRESSION - STEP 3: How often does the patient need help to express directions and conversation about basic needs? Less t [place] 10% of the time EXPRESSION - SCORE: 5-SUP SOCIAL INTERACTION: SOCIAL INTERACTION - STEP 1: Does the patient require a helper to interact with others in social and therapeutic situations? No. SOCIAL INTERACTION - STEP 2: Does the patient need extra time in social situations, OR does s/he interact with staff, other patien ts, and family members ONLY in structured environments, OR does s/he require medication for social in teraction? No. SOCIAL INTERACTION - SCORE: 7-IND PROBLEM SOLVING: PROBLEM SOLVING - STEP 1: Does the patient need help to solve complex problems such as managing a checking account or confronti ng interpersonal problems? Yes. PROBLEM SOLVING - STEP 2: Does the patient solve basic routine problems half or more of the time? No. PROBLEM SOLVING - STEP 3: Does the patient need help to solve problems all the time or is s/he unable to solve problems? No. Jhon winchester can sometimes solve problems PROBLEM SOLVING - SCORE: 2-MAX MEMORY: MEMORY - STEP 1: Does the patient need help to remember frequently encountered people, daily routines, and executing r equests? Yes. MEMORY - STEP 2: How often does the patient need help to remember frequently encountered people, daily routines, and e xecuting requests? 10% - 24% of the time MEMORY - SCORE: 4-MIN SIGNATURE PANEL: The following modified sections: Eating - Score, Grooming - Score, Bathing - Score, Dressing - Upper Body - Score, Dressing - Lower Body - Score, Toileting - Score, Bladder Management - Score, Bowel Man agement - Score, Transfers: Bed, Chair, Wheelchair - Score, Transfers: Toilet - Score, Transfers: Leonela wer - Score, Transfers: Tub - Score, Locomotion: Walk - Score, Locomotion: Wheelchair - Score, Compre hension - Score, Expression - Score, Social Interaction - Score, Problem Solving - Score, Memory - Sc ore were [electronically] signed by Ingrid Lackey C.N.A. on SunMar 21 2018 16:16:52 T-0500 (Centra l Daylight Time)
--- NOTE | 2018-03-21 17:21 | FAST ---
ENCOUNTER DATE AND TIME: 03/21/2018 08:00 (CDT) NAME JOSE ALEXANDRA DATE OF : 1935 DATE OF ADMISSION: 03/15/2018 13:31 (CDT) PHONE: AGE: 82 N# [id number] GENDER: Male ENCOUNTER PHYSICIAN: Dr. Luca Casas M.D. ADMISSION DIAGNOSIS: - Orthopaedic Disorders 08 - Other Orthopaedic (08.9) R shoulder dislocation. EATING: Activity did not occur on this shift EATING - SCORE: 0-UNK GROOMING: Activity did not occur on this shift GROOMING - SCORE: 0-UNK BATHING: Abdomen Buttocks Chest Left arm Left lower leg and foot Left upper leg Perineal area Right arm Right lower leg and foot Right upper leg BATHING - STEP 1: Does the patient require assistance when bathing? Yes. BATHING - STEP 2: Does the patient require the assistance of a helper? Yes. BATHING - STEP 3: How much assistance does the patient require from the helper? Only incidental help such as placement of a wash cloth in his/her hand a few times as s/he bathes OR help to bathe just one or two areas of the body BATHING - SCORE: 4-MIN DRESSING - UPPER BODY: Patient is not dressing in public clothing ARTICLES SCORE Total number of steps: 0 DRESSING - UPPER BODY - SCORE: 0-UNK DRESSING - LOWER BODY: Elastic waist pants (three steps) Sock - Left foot (one step) Sock - Right foot (one step) Underwear (three steps) ARTICLES SCORE Total number of steps: 8 DRESSING - LOWER BODY - STEP 1: Does the patient require help when dressing below the waist? Yes. DRESSING - LOWER BODY - STEP 2: Does the patient require the assistance of a helper? Yes. DRESSING - LOWER BODY - STEP 3: Does the helper touch the patient while dressing? Yes. DRESSING - LOWER BODY - STEP 4: How many of the total steps does the patient complete on his/her own? 1 DRESSING - LOWER BODY - STEP 5: Does patient require total assistance for dressing below the waist such as the helper holding clothin g and performing basically all the activities? No. DRESSING - LOWER BODY - SCORE: 2-MAX TOILETING: TOILETING - STEP 1: Does the patient require assistance with toileting? Yes. TOILETING - STEP 2: Does the patient require the assistance of a helper? Yes. TOILETING - STEP 3: How much assistance does the patient require from the helper? Hands-on assistance from the helper TOILETING - STEP 4: Of the 3 tasks: 1) Adjusting clothing prior to use, 2) Cleansing of perineal area, 3) Adjusting clot aleksandr after use; How many tasks does the patient perform WITHOUT assistance of the helper? One task TOILETING - SCORE: 2-MAX BLADDER MANAGEMENT: Activity did not occur on this shift BLADDER MANAGEMENT - SCORE: 7-IND BOWEL MANAGEMENT: Activity did not occur on this shift BOWEL MANAGEMENT - SCORE: 7-IND TRANSFERS: BED, CHAIR, WHEELCHAIR: Activity did not occur on this shift TRANSFERS: BED, CHAIR, WHEELCHAIR - SCORE: 0-UNK TRANSFERS: TOILET: TRANSFERS: TOILET - STEP 1: Does the patient require assistance with toilet transfers? Yes. TRANSFERS: TOILET - STEP 2: Does the patient require the assistance of a helper? Yes. TRANSFERS: TOILET - STEP 3: How much assistance does the patient require from the helper? Patient performs half or more of the tr ansferring tasks TRANSFERS: TOILET - STEP 4: Does the patient need only incidental help such as contact guard or steadying during toilet transfer? Yes. TRANSFERS: TOILET - SCORE: 4-MIN TRANSFERS: SHOWER: TRANSFERS: SHOWER - STEP 1: Does the patient require assistance with shower transfers? Yes. TRANSFERS: SHOWER - STEP 2: Does the patient require the assistance of a helper? Yes. TRANSFERS: SHOWER - STEP 3: How much assistance does the patient require from the helper? Only incidental help such as contact gu arding or steadying during shower transfers, or help to lift one leg into the shower TRANSFERS: SHOWER - SCORE: 4-MIN TRANSFERS: TUB: Activity did not occur on this shift TRANSFERS: TUB - SCORE: 0-UNK LOCOMOTION: WALK: Activity did not occur on this shift LOCOMOTION: WALK - SCORE: 0-UNK LOCOMOTION: WHEELCHAIR: Activity did not occur on this shift LOCOMOTION: WHEELCHAIR - SCORE: 0-UNK LOCOMOTION: STAIRS: Activity did not occur on this shift LOCOMOTION: STAIRS - SCORE: 0-UNK COMPREHENSION: COMPREHENSION: TYPE: Both COMPREHENSION - SCORE: 0-UNK EXPRESSION EXPRESSION - SCORE: 0-UNK SOCIAL INTERACTION: SOCIAL INTERACTION - SCORE: 0-UNK PROBLEM SOLVING: PROBLEM SOLVING - SCORE: 0-UNK MEMORY: MEMORY - SCORE: 0-UNK SIGNATURE PANEL: The following modified sections: Eating - Score, Grooming - Score, Bathing - Score, Dressing - Upper Body - Score, Dressing - Lower Body - Score, Toileting - Score, Transfers: Bed, Chair, Wheelchair - S core, Transfers: Toilet - Score, Transfers: Shower - Score, Transfers: Tub - Score, Comprehension - S core, Expression - Score, Social Interaction - Score, Problem Solving - Score, Memory - Score were [e lectronically] signed by DIANE Hunter on SunMar 21 2018 16:23:12 T-0500 ([facility] Time)
--- NOTE | 2018-03-21 20:27 | R.PN ---
ENCOUNTER DATE AND TIME: 03/21/2018 19:21 (CDT) NAME JOSE ALEXANDRA DATE OF : 1935 DATE OF ADMISSION: 03/15/2018 13:31 (CDT) R shoulder dislocationCHIEF COMPLAINT: Right shoulder dislocation, dysphagia, aspiration of thin liquid SUBJECTIVE: Pt denied any Shortness of Breath. Pt denied any depression. Patient had a productive cough with chest x-ray 5 days ago showing aspiration pneumonia. He is on Lev aquin 500 mg daily for 10 days. On nectar thickened consistence. Working with speech therapy. He is doing less well today versus three days ago due to mild shortness of breath. His repeat chest x-ray s howed no worsening of his pneumonia. Repeat barium swallow showed no aspiration. VITAL SIGNS Temperature: 97.6 F SBP/DBP: 129/59 Pulse: 84 Resp: 15 MEDICATION ALLERGIES: Nsaids ENVIRONMENTAL ALLERGIES: None Known - Substance Allergies None Known - Other Allergies None Known NURSING: - Shower allowing shower - Skin care per protocol PRECAUTIONS: - Weight Bearing Precaution NWB right UE - Fall Precaution Bed and chair alarm ACTIVITIES OOB only with supervision THERAPIES: - Occupational Therapy Evaluate and Treat. - Physical Therapy Evaluate and Treat. PHYSICAL EXAM - Gen Alert and awake Lying in bed No apparent distress Oriented to: person, time, and place - Skin No breakdowns No numbness - Eyes No abnormalities - ENMT No abnormalities - Neck No abnormalities - CVS RRR - Chest Mildly decreased breath sounds bilaterally.with productive cough - Resp + upper airway ronchi - Abd +bowel sounds - GI Soft Deferred - No abnormalities - Ext no edema - MSK Normal bulk and tone in the upper and lower extremities - Neuro Moderate right upper extremity weakness with right arm in a sling. - Psych No abnormalities ASSESSMENT: Pt. is a 82 yo Right-handed white male.On 03/05/2018 he was admitted to [facility] with diagnosis R shoulde r dislocation.His impairment category is Orthopaedic Disorders 08 - Other Orthopaedic (08.9).Pre-mor bidly, Pt. was independent/mod-I in Self-Care, Locomotion, Sphincter Control, Transfers Control, Comm unication, and Social Cognition; and he had good Sphincter Control.Currently, he has deficits of Self -Care, Locomotion, Endurance, Safety Awareness, Transfers Control, and Balance.Pt. is now referred to [facility] for acute in-patient rehabilitation in order to maximize patient's functional independence in activities of daily living, strength, ROM, and mobility.- Rehab Goal Patient has realistic goal of being discharged at assistance level 6-Cesar to reside at Home with Fam heriberto/Relatives. MDM/PLAN: - Diet Type Continue Regular - Physical Therapy Decreased range of motion - to improve, our physical therapists will perform initial evaluation of p t's status upon admission and devise an individualized program for increasing patient's Range of Lucian on. Gait dysfunction - to improve, our physical therapists will perform initial evaluation of pt's statu s upon admission and devise an individualized program for Gait Training, and Wheel Chair mobility Inability to transfer - to improve, our physical therapists will perform initial evaluation of pt's status upon admission and devise an individualized program for Bed mobility Need for home safety evaluation - to improve, our physical therapists will perform initial evaluatio n of pt's status upon admission and devise an individualized program for Home Evaluation Need in caregiver upon discharge - to improve, our physical therapists will perform initial evaluati on of pt's status upon admission and devise an individualized program for Caregiver Training New precaution - to improve, our physical therapists will perform initial evaluation of pt's status upon admission and devise an individualized program for Patient precaution education Poor balance - to improve, our physical therapists will perform initial evaluation of pt's status up on admission and devise an individualized program for Balance Training Poor endurance - to improve, our physical therapists will perform initial evaluation of pt's status upon admission and devise an individualized program for Endurance Training Weakness - to improve, our physical therapists will perform initial evaluation of pt's status upon a dmission and devise an individualized program for Aquatic Therapy, Neuromuscular Reeducation, and Str engthening Achieving independence - to improve, our physical therapists will perform initial evaluation of pt's status upon admission and devise an individualized program for Community Reintegration Activities - Diet - Liquid Texture Continue Regular - Tube Feed Continue N/A - Weight Bearing Precaution NWB right UE - Fall Precaution Bed and chair alarm - Skin care per protocol - Diet - Solid Texture Continue Regular - Shower allowing shower - Occupational Therapy ADL deficits - to improve, our occupation therapists will perform initial evaluation of pt's status upon admission and devise an individualized program for Bathing, Bed mobility, Community Reintegratio n, Cooking, Dressing, Eating, Fine Motor Skills, Grooming, Homemaking, Kitchen Mobility, Laundry, Pat ient Education, Safety Awareness, Splinting - Positioning, Transfers(Toilet, Tub, Shower), and Wheel Chair Management Need for nurse behavioral health care - to improve, our occupation therapists will perform initial evaluation of pt's status upon admission and devise an individualized program for Caregiver Training Weakness - to improve, our occupation therapists will perform initial evaluation of pt's status upon admission and devise an individualized program for Aquatic Therapy, Balance, Endurance, UE ROM, and UE strengthening FUNCTIONAL STATUS: UPDATED AT WEEKLY TEAM CONFERENCE - Bladder Same accident frequency: 7-Ind - No accidents in the past 7 days - Bowel Same accident frequency: 7-Ind - No accidents in the past 7 days - Walking Same score based on distance walked: 2(50-149ft) - Wheelchair Same score based on distance traveled: 0(N/A) FUNCTIONAL STATUS: - Self-Care A. Eating sup B. Grooming sup C. Bathing sup D. Dressing - Upper sup E. Dressing - Lower sup F. Toileting sup - Sphincter Control G: Bladder control Ind H: Bowel control Ind - Transfers Control I. Bed/Chair/Wheelchair sup J. Toilet ADNO K. Tub/Shower ADNO - Locomotion L. Walk/Wheelchair (C) sup L. Walk/Wheelchair (W) sup M. Stairs ADNO - Communication N. Comprehension (B) Cesar O. Expression (B) Cesar - Social Cognition P. Social Interaction Cesar Q. Problem Solving Cesar R. Memory Cesar - Endurance Fair - Balance Fair - Safety Awareness Fair [facility] DEFICITS: Self-Care, Locomotion, Endurance, Safety Awareness, Transfers Control, and Balance SIGNATURE PANEL: (CDT)
[2018-03-21] MEDS: RISPERIDONE 0.25 MG TABLET PO SCH (20:59)
[2018-03-21] MEDS: ATORVASTATIN 40 MG TAB PO SCH (20:59)
[2018-03-21] MEDS: DOCUSATE NA/SENNA CONC 1 TAB PO SCH (21:00)
[2018-03-21 23:19] VITALS: O2SAT 98
[2018-03-21] MEDS: TRAZODONE 50 MG TABLET PO PRN (23:48)
[2018-03-22] MEDS: IPRATROPIUM BROM 0.5MG/2.5ML NEB SCH ×4 (01:56→14:55)
[2018-03-22] MEDS: ALBUTEROL 2.5 MG/3 ML NEB SOL NEB SCH ×4 (01:56→14:55)
--- NOTE | 2018-03-22 03:25 | FAST ---
SHIFT START DATE/TIME: 03/21/2018 19:00 (CDT) SHIFT END DATE/TIME: 03/22/2018 07:00 (CDT) NAME JOSE ALEXANDRA DATE OF : 1935 DATE OF ADMISSION: 03/15/2018 13:31 (CDT) PHONE: AGE: 82 N# [id number] GENDER: Male ENCOUNTER PHYSICIAN: Dr. Luca Casas M.D. ADMISSION DIAGNOSIS: - Orthopaedic Disorders 08 - Other Orthopaedic (08.9) R shoulder dislocation. EATING: Activity did not occur on this shift EATING - SCORE: 0-UNK GROOMING: Activity did not occur on this shift GROOMING - SCORE: 0-UNK BATHING: Activity did not occur on this shift BATHING - SCORE: 0-UNK DRESSING - UPPER BODY: Patient is not dressing in public clothing ARTICLES SCORE Total number of steps: 0 DRESSING - UPPER BODY - SCORE: 0-UNK DRESSING - LOWER BODY: Patient is not dressing in public clothing ARTICLES SCORE Total number of steps: 0 DRESSING - LOWER BODY - SCORE: 0-UNK TOILETING: TOILETING - STEP 1: Does the patient require assistance with toileting? Yes. TOILETING - STEP 2: Does the patient require the assistance of a helper? Yes. TOILETING - STEP 3: How much assistance does the patient require from the helper? Hands-on assistance from the helper TOILETING - STEP 4: Of the 3 tasks: 1) Adjusting clothing prior to use, 2) Cleansing of perineal area, 3) Adjusting clot aleksandr after use; How many tasks does the patient perform WITHOUT assistance of the helper? No tasks; h elper performs all three tasks TOILETING - SCORE: 1-DEP BLADDER MANAGEMENT: [place] removes incontinent device (Depends, pull ups, etc.); cleans the patient after accident / inco ntinent episode; and, applies new incontinent device. BLADDER MANAGEMENT - SCORE: 1-DEP BLADDER MANAGEMENT - FREQUENCY OF ACCIDENTS: BLADDER MANAGEMENT(FA) - STEP 1: How many accidents has the patient had during the current shift? 1 BOWEL MANAGEMENT: [place] removes incontinent device (depends, pull ups, etc.); cleans the patient after accident / inco ntinent episode; and, applies new device (depends, pull-ups, padding, etc.). BOWEL MANAGEMENT - SCORE: 1-DEP TRANSFERS: BED, CHAIR, WHEELCHAIR: TRANSFERS: BED, CHAIR, WHEELCHAIR - STEP 1: Does the patient require assistance with bed, chair, or wheelchair transfers? Yes. TRANSFERS: BED, CHAIR, WHEELCHAIR - STEP 2: Does the patient require the assistance of a helper? Yes. TRANSFERS: BED, CHAIR, WHEELCHAIR - STEP 3: How much assistance does the patient require from the helper? Steadying/guiding assistance TRANSFERS: BED, CHAIR, WHEELCHAIR - SCORE: 4-MIN TRANSFERS: TOILET: TRANSFERS: TOILET - STEP 1: Does the patient require assistance with toilet transfers? Yes. TRANSFERS: TOILET - STEP 2: Does the patient require the assistance of a helper? Yes. TRANSFERS: TOILET - STEP 3: How much assistance does the patient require from the helper? Patient performs half or more of the tr ansferring tasks TRANSFERS: TOILET - STEP 4: Does the patient need only incidental help such as contact guard or steadying during toilet transfer? No. Patient needs more than incidental help TRANSFERS: TOILET - SCORE: 3-MOD TRANSFERS: SHOWER: Activity did not occur on this shift TRANSFERS: SHOWER - SCORE: 0-UNK TRANSFERS: TUB: Activity did not occur on this shift TRANSFERS: TUB - SCORE: 0-UNK LOCOMOTION: WALK: Activity did not occur on this shift LOCOMOTION: WALK - SCORE: 0-UNK LOCOMOTION: WHEELCHAIR: Activity did not occur on this shift LOCOMOTION: WHEELCHAIR - SCORE: 0-UNK COMPREHENSION: COMPREHENSION - STEP 1: Does the patient require help to understand complex and abstract ideas (such as current events, finan christian, discharge planning, medical issues, relationships, etc)? Yes. COMPREHENSION - STEP 2: Does the patient require help to understand questions or statements about basic needs or ideas (such as hunger, thirst, sleep, safety, daily schedule, room location, or discomfort) half or more of the t sari? No. COMPREHENSION - STEP 3: How often does the patient need help to understand directions and conversation about basic needs? 10% - 24% of the time COMPREHENSION - SCORE: 4-MIN EXPRESSION EXPRESSION - STEP 1: Does the patient require help expressing complex and abstract ideas (such as current events, finances , discharge planning, medical issues, relationships, etc)? No. EXPRESSION - STEP 2: Does the patient need extra time, require an assistive device (such as augmentive communication syste m or a communication board), OR does s/he have mild difficulty expressing complex and abstract ideas (including mild dysarthria or mild word-find problems)? No. EXPRESSION - SCORE: 7-IND SOCIAL INTERACTION: SOCIAL INTERACTION - STEP 1: Does the patient require a helper to interact with others in social and therapeutic situations? No. SOCIAL INTERACTION - STEP 2: Does the patient need extra time in social situations, OR does s/he interact with staff, other patien ts, and family members ONLY in structured environments, OR does s/he require medication for social in teraction? Yes, patient needs extra time SOCIAL INTERACTION - SCORE: 6-MANOLO PROBLEM SOLVING: PROBLEM SOLVING - STEP 1: Does the patient need help to solve complex problems such as managing a checking account or confronti ng interpersonal problems? Yes. PROBLEM SOLVING - STEP 2: Does the patient solve basic routine problems half or more of the time? Yes. PROBLEM SOLVING - STEP 3: How often does the patient need help to solve basic routine problems? 10%-24% of the time PROBLEM SOLVING - SCORE: 4-MIN MEMORY: MEMORY - STEP 1: Does the patient need help to remember frequently encountered people, daily routines, and executing r equests? Yes. MEMORY - STEP 2: How often does the patient need help to remember frequently encountered people, daily routines, and e xecuting requests? 25% - 49% of the time MEMORY - SCORE: 3-MOD SIGNATURE PANEL: The following modified sections: Eating - Score, Grooming - Score, Dressing - Upper Body - Score, Shashank ssing - Lower Body - Score, Toileting - Score, Bladder Management - Score, Bowel Management - Score, Transfers: Bed, Chair, Wheelchair - Score, Transfers: Toilet - Score, Transfers: Shower - Score, Alvarado sfers: Tub - Score, Locomotion: Walk - Score, Locomotion: Wheelchair - Score, Comprehension - Score, Expression - Score, Social Interaction - Score, Problem Solving - Score, Memory - Score were [electro nically] signed by Crys Benz CNA on SunMar 22 2018 02:27:17 GMT-0500 (Central Daylight Time)
[2018-03-22] MEDS: CODEINE 30MG/APAP 300MG TAB PO PRN ×2 (05:33→09:20)
[2018-03-22] MEDS: PANTOPRAZOLE 40MG TABLET PO SCH (06:25)
[2018-03-22] MEDS: GABAPENTIN 300 MG CAP PO SCH (08:58)
[2018-03-22] MEDS: ASPIRIN EC 81 MG TAB PO SCH (08:59)
[2018-03-22] MEDS: FERROUS SULFATE 325 MG TAB PO SCH (08:59)
[2018-03-22] MEDS: levoFLOXacin 500 MG TAB PO SCH (08:59)
[2018-03-22] MEDS: DOCOSAHEXANOIC AC/EPA 1000 MG PO SCH (08:59)
[2018-03-22] MEDS: FUROSEMIDE 20 MG TABLET PO SCH (08:59)
[2018-03-22] MEDS: FINASTERIDE 5 MG TAB PO SCH (08:59)
[2018-03-22] MEDS: HEPARIN 5000 UNIT/ML 1 ML VIAL SQ SCH (09:00)
[2018-03-22] MEDS: ENSURE HIGH PROTEIN 237 ML CAN PO SCH (09:00)
[2018-03-22 09:01] VITALS: BP 149/66
[2018-03-22 09:15] VITALS: TEMP 97.4
--- NOTE | 2018-03-22 09:18 | P.RH.PN ---
Estimated Length of Stay: 10 Expected Discharge Date: 03/25/18 Discharge Disposition Plan: Home Family Support: Yes Vital Signs: Last Vital Signs Temp 97.3 F 03/21/18 20:00 Pulse 96 H 03/22/18 08:59 Resp 18 03/21/18 20:00 BP 149/66 H 03/22/18 08:59 Pulse Ox 95 03/21/18 20:00 Laboratory: Laboratory Last Values WBC 8.5 K/uL (4.3-10.9) D 03/21/18 05:38 RBC 2.88 M/uL (4.33-5.43) L 03/21/18 05:38 Hgb 9.0 g/dL (13.6-17.9) L 03/21/18 05:38 Hct 27.0 % (39.6-49.0) L 03/21/18 05:38 MCV 93.5 fL (80-100) 03/21/18 05:38 MCH 31.3 pg (27.0-35.0) 03/21/18 05:38 MCHC 33.5 g/dL (32.0-36.0) 03/21/18 05:38 RDW 19.3 % (12.1-15.2) H 03/21/18 05:38 Plt Count 250 K/uL (152-406) 03/21/18 05:38 MPV 8.3 fL (7.6-11.3) 03/21/18 05:38 Neutrophils % 78.1 % (41.7-73.7) H 03/21/18 05:38 Lymphocytes % 13.2 % (15.3-44.8) L 03/21/18 05:38 Monocytes % 7.2 % (3.3-12.3) 03/21/18 05:38 Eosinophils % 1.0 % (0-4.4) 03/21/18 05:38 Basophils % 0.5 % (0-1.3) 03/21/18 05:38 Absolute Neutrophils 6.6 K/uL (1.8-8.0) 03/21/18 05:38 Absolute Lymphocytes 1.1 K/uL (0.7-4.9) 03/21/18 05:38 Absolute Monocytes 0.6 K/uL (0.1-1.3) 03/21/18 05:38 Absolute Eosinophils 0.1 K/uL (0-0.5) 03/21/18 05:38 Absolute Basophils 0.0 K/uL (0-0.5) 03/21/18 05:38 Sodium 137 mEq/L (135-145) 03/21/18 05:38 Potassium 4.0 mEq/L (3.6-5.0) 03/21/18 05:38 Chloride 103 mEq/L (101-111) 03/21/18 05:38 Carbon Dioxide 26 mEq/L (21-31) 03/21/18 05:38 BUN 21 mg/dL (6-20) H 03/21/18 05:38 Creatinine 1.10 mg/dL (0.61-1.24) 03/21/18 05:38 Estimated GFR 64 mL/min (=/>90) L 03/21/18 05:38 Glucose 134 mg/dL (65-120) H 03/21/18 05:38 Calcium 9.3 mg/dL (8.5-10.5) 03/21/18 05:38 Magnesium 2.0 mg/dL (1.8-2.5) 03/16/18 06:15 Albumin 2.9 g/dL (3.2-5.5) L 03/21/18 05:38 Prealbumin 15.3 mg/dl (18-38) L 03/21/18 05:38 Urine Color Yellow 03/15/18 18:00 Urine Appearance Clear 03/15/18 18:00 Urine pH 6.5 (5.0-7.0) 03/15/18 18:00 Ur Specific [place] 1.015 (1.005-1.030) 03/15/18 18:00 Urine Ketones Negative (NEG) 03/15/18 18:00 Urine Blood Trace (NEG) H 03/15/18 18:00 Urine Nitrite Negative (NEG) 03/15/18 18:00 Urine Bilirubin Negative (NEG) 03/15/18 18:00 Urine Urobilinogen 1.0 mg/dL (0.2-1.0) 03/15/18 18:00 Ur Leukocyte Esterase Trace (NEG) H 03/15/18 18:00 Urine RBC <5 /HPF (NONE SEEN) 03/15/18 18:00 Urine WBC <5 /HPF (<5) 03/15/18 18:00 Ur Squamous Epith Cells <5 /HPF (NONE SEEN) 03/15/18 18:00 Urine Bacteria <20 /HPF (NONE SEEN) 03/15/18 18:00 Urine Culture Reflexed Not needed 03/15/18 18:00 Urine Glucose Negative (NEG) 03/15/18 18:00 Urine Total Protein Negative (NEG) 03/15/18 18:00 Weight: 158 lb 11.2 oz Wound Present: No Closed Surgical Incision Present: Yes Negative Pressure Wound Therapy Present: No Physician Update: He is medically stable. His chest x-ray did not change. He is not participating well with therapy. He will be discharged on Sunday03/24/18. Due to his poor condition and poor prognosis, he should qualify for hospice at home. Medical Issues: R shoulder pain Pain Issues: on Tylenol #3 Functional Improvement Occupational Therapy: pt can benifit with further therapy to address pt's right shoulder for training and education for don/ doffing Immobilizer for bathing and clothing. Cont to educate pt on A/E for bathing and for getting dressed. Cont to increase pt's Right UE with AAROM of the elbow to prevent contractures, and energy conservation techniques using the left UE to assist with adl tasks. Cont to increase pt's strength/endurance in the left UE to assist with transfers and adl tasks. Cont with the POC and the goals by the supervising OTR. Speech Therapy Update: Pt. demonstrates significant deficits in memory, and safety awareness. Pt. was unable to tolerate NMES at minimal sensory threshold of 3.0mA and became highly agitated and demanded it be removed. Pt. follows single step commands to execute effortful swallows but is unable to follow 2 step commands to perform complex swallowing exercises. Progress is guarded at this time. Summary: Patient's care plan and termination clerk goals have been reviewed and revised as necessary. Please see the Rehabilitation Signature page for all necessary signatures.
[2018-03-22] MEDS: MAGNES/ALUMIN/SIMET 30ML UCUP PO PRN (10:57)
[2018-03-22] MEDS ORDERED: VANCOMYCIN/NS 1 gm 1 GM/250 ML BAG IVPB SCH (16:15)
[2018-03-22 16:27] LABS: Absolute Monocytes 0.7 K/uL (0.1-1.3); Absolute Neutrophil 5.7 K/uL (1.8-8.0); Basophils % 0.2 % (0-1.3); Eosinophils % 1.7 % (0-4.4); Hematocrit 26.7 % (39.6-49.0); Lymphocytes % 13.5 % (15.3-44.8); MCH 31.4 pg (27.0-35.0); MPV 7.9 fL (7.6-11.3); Monocytes % 8.8 % (3.3-12.3); RBC Red Blood Cell Count 2.87 M/uL (4.33-5.43)
[2018-03-22 16:57] LABS: Potassium 3.9 mEq/L (3.6-5.0)
[2018-03-22] MEDS ORDERED: VANCOMYCIN 1.25 GM in NA CHLORIDE 0.9% 250 ML IVPB SCH ×2 (17:00→18:00)
[2018-03-22] MEDS ORDERED: LEVALBUTEROL 1.25 MG/3 ML NEB NEB SCH (20:00)
[2018-03-22] MEDS ORDERED: CEFEPIME/SWI 2gm 2 GM/20 ML SYR IVP SCH (20:00)
[2018-03-22] MEDS ORDERED: CEFEPIME 2 GM VIAL IV SCH (20:00)
--- NOTE | 2018-03-22 20:15 | RAD REPORT ---
EXAM DESCRIPTION: RAD - Chest Pa And Lat (2 Views) - 03/22/2018 8:03 pm CLINICAL HISTORY: Shortness of breath COMPARISON: 03/20/2018 FINDINGS: Ill-defined opacity is seen in the posterior gutters, likely related to aspiration/ develo ping pneumonia. The heart is normal in size. Dual lead pacer device is present. 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
--- NOTE | 2018-03-25 11:41 | FAST ---
ENCOUNTER DATE AND TIME: 03/21/2018 08:00 (CDT) NAME JOSE ALEXANDRA DATE OF : 1935 DATE OF ADMISSION: 03/15/2018 13:31 (CDT) PHONE: AGE: 82 N# [id number] GENDER: Male ENCOUNTER PHYSICIAN: Dr. Luca Casas M.D. ADMISSION DIAGNOSIS: - Orthopaedic Disorders 08 - Other Orthopaedic (08.9) R shoulder dislocation. EATING: Activity did not occur on this shift EATING - SCORE: 0-UNK GROOMING: Activity did not occur on this shift GROOMING - SCORE: 0-UNK BATHING: Activity did not occur on this shift BATHING - SCORE: 0-UNK DRESSING - UPPER BODY: Activity did not occur on this shift Patient is not dressing in public clothing ARTICLES SCORE Total number of steps: 0 DRESSING - UPPER BODY - SCORE: 0-UNK DRESSING - LOWER BODY: Activity did not occur on this shift Patient is not dressing in public clothing ARTICLES SCORE Total number of steps: 0 DRESSING - LOWER BODY - SCORE: 0-UNK TOILETING: Activity did not occur on this shift TOILETING - SCORE: 0-UNK BLADDER MANAGEMENT: Activity did not occur on this shift BLADDER MANAGEMENT - SCORE: 7-IND BOWEL MANAGEMENT: Activity did not occur on this shift BOWEL MANAGEMENT - SCORE: 7-IND TRANSFERS: BED, CHAIR, WHEELCHAIR: TRANSFERS: BED, CHAIR, WHEELCHAIR - STEP 1: Does the patient require assistance with bed, chair, or wheelchair transfers? Yes. TRANSFERS: BED, CHAIR, WHEELCHAIR - STEP 2: Does the patient require the assistance of a helper? Yes. TRANSFERS: BED, CHAIR, WHEELCHAIR - STEP 3: How much assistance does the patient require from the helper? Only supervision TRANSFERS: BED, CHAIR, WHEELCHAIR - SCORE: 5-SUP TRANSFERS: TOILET: Activity did not occur on this shift TRANSFERS: TOILET - SCORE: 0-UNK TRANSFERS: SHOWER: Activity did not occur on this shift TRANSFERS: SHOWER - SCORE: 0-UNK TRANSFERS: TUB: Activity did not occur on this shift TRANSFERS: TUB - SCORE: 0-UNK LOCOMOTION: WALK: LOCOMOTION: WALK - STEP 1: Does the patient need help to walk 150 feet? Yes. LOCOMOTION: WALK - STEP 2: How much assistance does the patient require to walk a minimum of 150 feet? Only incidental help such as contact guarding or steadying LOCOMOTION: WALK - SCORE: 4-MIN LOCOMOTION: WHEELCHAIR: LOCOMOTION: WHEELCHAIR - STEP 1: Does the patient need help to go 150 feet in a wheelchair? Yes. LOCOMOTION: WHEELCHAIR - STEP 2: How much assistance does the patient need from the helper? Only incidental help such as around corner s or over thresholds LOCOMOTION: WHEELCHAIR - SCORE: 4-MIN LOCOMOTION: STAIRS: Activity did not occur on this shift LOCOMOTION: STAIRS - SCORE: 0-UNK COMPREHENSION: COMPREHENSION - SCORE: 0-UNK EXPRESSION EXPRESSION - SCORE: 0-UNK SOCIAL INTERACTION: SOCIAL INTERACTION - SCORE: 0-UNK PROBLEM SOLVING: PROBLEM SOLVING - SCORE: 0-UNK MEMORY: MEMORY - SCORE: 0-UNK SIGNATURE PANEL: The following modified sections: Transfers: Bed, Chair, Wheelchair - Score, Transfers: Toilet - Score , Locomotion: Walk - Score, Locomotion: Wheelchair - Score, Locomotion: Stairs - Score were [electron ically] signed by Rai Dunlap PTA on SunMar 25 2018 10:43:36 GMT-0500 (Central Daylight Time)
--- NOTE | 2018-03-25 11:42 | FAST ---
ENCOUNTER DATE AND TIME: 03/22/2018 08:00 (CDT) NAME JOSE ALEXANDRA DATE OF : 1935 DATE OF ADMISSION: 03/15/2018 13:31 (CDT) PHONE: AGE: 82 N# [id number] GENDER: Male ENCOUNTER PHYSICIAN: Dr. Luca Casas M.D. ADMISSION DIAGNOSIS: - Orthopaedic Disorders 08 - Other Orthopaedic (08.9) R shoulder dislocation. EATING: Activity did not occur on this shift EATING - SCORE: 0-UNK GROOMING: Activity did not occur on this shift GROOMING - SCORE: 0-UNK BATHING: Activity did not occur on this shift BATHING - SCORE: 0-UNK DRESSING - UPPER BODY: Activity did not occur on this shift Patient is not dressing in public clothing ARTICLES SCORE Total number of steps: 0 DRESSING - UPPER BODY - SCORE: 0-UNK DRESSING - LOWER BODY: Activity did not occur on this shift Patient is not dressing in public clothing ARTICLES SCORE Total number of steps: 0 DRESSING - LOWER BODY - SCORE: 0-UNK TOILETING: Activity did not occur on this shift TOILETING - SCORE: 0-UNK BLADDER MANAGEMENT: Activity did not occur on this shift BLADDER MANAGEMENT - SCORE: 7-IND BOWEL MANAGEMENT: Activity did not occur on this shift BOWEL MANAGEMENT - SCORE: 7-IND TRANSFERS: BED, CHAIR, WHEELCHAIR: TRANSFERS: BED, CHAIR, WHEELCHAIR - STEP 1: Does the patient require assistance with bed, chair, or wheelchair transfers? Yes. TRANSFERS: BED, CHAIR, WHEELCHAIR - STEP 2: Does the patient require the assistance of a helper? Yes. TRANSFERS: BED, CHAIR, WHEELCHAIR - STEP 3: How much assistance does the patient require from the helper? Only supervision TRANSFERS: BED, CHAIR, WHEELCHAIR - SCORE: 5-SUP TRANSFERS: TOILET: Activity did not occur on this shift TRANSFERS: TOILET - SCORE: 0-UNK TRANSFERS: SHOWER: Activity did not occur on this shift TRANSFERS: SHOWER - SCORE: 0-UNK TRANSFERS: TUB: Activity did not occur on this shift TRANSFERS: TUB - SCORE: 0-UNK LOCOMOTION: WALK: LOCOMOTION: WALK - STEP 1: Does the patient need help to walk 150 feet? Yes. LOCOMOTION: WALK - STEP 2: How much assistance does the patient require to walk a minimum of 150 feet? Only incidental help such as contact guarding or steadying LOCOMOTION: WALK - SCORE: 4-MIN LOCOMOTION: WHEELCHAIR: Activity did not occur on this shift LOCOMOTION: WHEELCHAIR - SCORE: 0-UNK LOCOMOTION: STAIRS: Activity did not occur on this shift LOCOMOTION: STAIRS - SCORE: 0-UNK COMPREHENSION: COMPREHENSION - SCORE: 0-UNK EXPRESSION EXPRESSION - SCORE: 0-UNK SOCIAL INTERACTION: SOCIAL INTERACTION - SCORE: 0-UNK PROBLEM SOLVING: PROBLEM SOLVING - SCORE: 0-UNK MEMORY: MEMORY - SCORE: 0-UNK SIGNATURE PANEL: The following modified sections: Transfers: Bed, Chair, Wheelchair - Score, Transfers: Toilet - Score , Locomotion: Walk - Score, Locomotion: Wheelchair - Score, Locomotion: Stairs - Score were [electron ically] signed by Rai Dunlap PTA on SunMar 25 2018 10:44:38 GMT-0500 (Central Daylight Time)
--- NOTE | 2018-04-22 19:48 | R.DS ---
FACILITY [facility] MR# [id number] NAME JOSE ALEXANDRA ADDRESS [address] [place] [address] [place] [address] [address] [id number] PHONE DATE OF 1935 AGE 82 SSN# [id number] GENDER Male DEXTERITY Right-handed MARITAL STATUS RACE White ENCOUNTER PHYSICIAN Dr. Luca Casas M.D. REFERRING DOCTOR Shanita Cardenas REFERRING FACILITY [facility] DISCHARGE DIAGNOSIS: - Orthopaedic Disorders 08 - Other Orthopaedic (08.9) R shoulder dislocation. DISCHARGE COMORBIDITIES: - N/A CAD, HTN, BPH, Narcotic Intolerance, Ulnar neuropathy, Osteoporosis, HLD, Urinary retention, Alzheime r disease DATE OF ADMISSION 03/15/2018 13:31 (CDT) MEDICATION ALLERGIES: Nsaids ENVIRONMENTAL ALLERGIES: None Known - Substance Allergies None Known - Other Allergies None Known NURSING: - Shower allowing shower - Skin care per protocol PRECAUTIONS: - Weight Bearing Precaution NWB right UE - Fall Precaution Bed and chair alarm ACTIVITIES OOB only with supervision THERAPIES: - Occupational Therapy Evaluate and Treat - Physical Therapy Evaluate and Treat HISTORY OF PRESENT ILLNESS: Pt. is a 82 yo Right-handed white male.On 03/05/2018 he was admitted to [facility] with diagnosis R shoulde r dislocation.His impairment category is Orthopaedic Disorders 08 - Other Orthopaedic (08.9).Pre-mor bidly, Pt. was independent/mod-I in Sphincter Control, Communication, and Social Cognition; and he perera d good Sphincter Control.Currently, he has deficits of Self-Care, Locomotion, Endurance, Safety Aware ness, Transfers Control, and Balance.Pt. is now referred to [facility] for acu te in-patient rehabilitation in order to maximize patient's functional independence in activities of daily living, strength, ROM, and mobility.- Rehab Goal Patient has realistic goal of being discharged at assistance level 6-Cesar to reside at Home with Fam heriberto/Relatives. HOSPITAL COURSE: On 03/18/2018 the following precautions were removed for the patient: Fall Precaution - Bed and mary grace r alarm. On 03/14/2018 the following precautions were added for the patient: Fall Precaution - Bed and chair a larm. On 03/16/2018 the following precautions were added for the patient: Fall Precaution - Bed and chair alarm. On 03/19/2018 the following precautions were added for the patient: Fall Precaution - Bed and chair alarm. The following precautions were removed for the patient: Fall Precaution - Bed and chair alarm, and F all Precaution - Bed and chair alarm. On 03/14/2018 the following precautions were added for the patient: Weight Bearing Precaution - NWB r ight UE. On 03/16/2018 the following precautions were added for the patient: Weight Bearing Precaution - NWB right UE. On 03/18/2018 the following precautions were removed for the patient: Weight Bearing Precaution - NW B right UE. On 03/19/2018 the following precautions were added for the patient: Weight Bearing Precaution - NWB right UE. DIET - LIQUID TEXTURE: On 03/14/2018 Pt was upgraded to Regular Diet - Liquid Texture. DIET - SOLID TEXTURE: On 03/14/2018 Pt was upgraded to Regular Diet - Solid Texture. DIET TYPE: On 03/14/2018 Pt was upgraded to Regular Diet Type. FALL PRECAUTION: TUBE FEED: On 03/14/2018 Pt was changed to N/A Tube Feed. WEIGHT BEARING PRECAUTION: DISCHARGE PHYSICAL EXAM - Gen Alert and awake Lying in bed No apparent distress Oriented to: person, time, and place - Skin No breakdowns No numbness - Eyes No abnormalities - ENMT No abnormalities - Neck No abnormalities - CVS RRR - Chest Mildly decreased breath sounds bilaterally.with productive cough - Resp + upper airway ronchi - Abd +bowel sounds - GI Soft Deferred - No abnormalities - Ext no edema - MSK Normal bulk and tone in the upper and lower extremities - Neuro Moderate right upper extremity weakness with right arm in a sling. - Psych No abnormalities FUNCTIONAL STATUS: - Self-Care A. Eating 5-sup 5-sup B. Grooming 5-sup 5-sup C. Bathing 5-sup 4-Cassandra D. Dressing - Upper 5-sup 1-Dep E. Dressing - Lower 5-sup 4-Cassandra F. Toileting 5-sup 5-sup - Sphincter Control G: Bladder control 7-Ind 7-Ind H: Bowel control 7-Ind 7-Ind - Transfers Control I. Bed/Chair/Wheelchair 5-sup 5-sup J. Toilet 0-ADNO 4-Cassandra K. Tub/Shower 0-ADNO 4-Cassandra - Locomotion L. Walk/Wheelchair (C) 5-sup 5-sup L. Walk/Wheelchair (W) 5-sup 5-sup M. Stairs 0-ADNO 0-ADNO - Communication N. Comprehension (B) 6-Cesar 6-Cesar O. Expression (B) 6-Cesar 6-Cesar - Social Cognition P. Social Interaction 6-Cesar 6-Cesar Q. Problem Solving 6-Cesar 6-Cesar R. Memory 6-Cesar 6-Cesar - Endurance Fair - Balance Fair - Safety Awareness Fair DISCHARGE INSTRUCTIONS: - N/A Aspirin 81 mg daily. DISCHARGE PLAN, FOLLOW UP CARE PROVISIONS: - Estimated Length of Stay (days) 14. - Consensus on plan Discharge plan has been discussed with primary caregiver. Patient/Family is in agreement with the deyanira n. Primary caregiver is in agreement with the plan. - Patient/Family Goals Return home with assistance. - Planned Living Setting Upon Discharge Home, to live with Family/Relatives. SIGNATURE PANEL: (CDT)
== END 2018-03-22 17:35 | disposition short-term general hospital (02) | DRG 949 ==
LOC: 5TH 13:31
PROVIDERS: ADMIT Psychiatry & Neurology Neurology with Special Qualifications in Child Neurology; ATTEND Psychiatry & Neurology Neurology with Special Qualifications in Child Neurology
DX: S43.004D Unspecified dislocation of right shoulder joint, subsequent encounter (principal); J69.0 Pneumonitis due to inhalation of food and vomit; R13.10 Dysphagia, unspecified; I25.10 Atherosclerotic heart disease of native coronary artery without angina pectoris; I10 Essential (primary) hypertension; N40.0 Benign prostatic hyperplasia without lower urinary tract symptoms; M81.0 Age-related osteoporosis without current pathological fracture
CPT/HCPCS: 36415; 71045; 71046; 74230; 80048; 81001; 82040; 83605; 83735; 84134; 84145; 85025; 87070; 87077; 87086; 87088; 87186; 87205; 93005; 94640; J0692; J1644

== ENCOUNTER 2018-03-22 17:39 | Inpatient (IN) | payer OTHER ==
--- OUTSIDE RECORDS SUMMARY | 2018-03-22 17:40 | XMS REPORT ---
:1935 [facility] [address] [place] [address] Dr. [place] [address] [place] [id number] Care Team Providers Name Role Phone MICKI [...] Department ID 2018-02-14 2018-02-14 Outpatient C [facility] [id number] 19:50:00 19:50:00 MICKI Results Test Description Test Time Test Comments Text Results Atomic Results Result Comments Lipid Profile 2018-02-14 21:41:00 Test Item Value Reference Range Comments Cholesterol (test code=CHOL) 115 mg/dL 0-200 Triglycerides (test code=TRIG) 173 mg/dL 9-200 HDL (test code=HDL) 28 mg/dL 40-60 Chol/HDL (test code=CHOLPHDL) 4.1 Ratio 0.0-5.0 LDL, Calculated (test 52 0-130 (NOTE)RISK OF HEART DISEASEPublished code=LDLC) by [place] Heart AssociationAnalyte Optimal Boderline Increased RiskCHOL <200 200-239 >240TRIG <150 150-199 >200HDL Male: >60 <40HDL Female: >60 <50LDL <100 130-159 >160LDL NEAR OPTIMAL IS 100-129 VLDL (test code=VLDL) 35 mg/dL 5-40 LDL/HDL (test code=LDLPHDL) 2
[2018-03-22] MEDS ORDERED: ONDANSETRON 4 MG/2 ML VIAL IV PRN (19:33)
[2018-03-22] MEDS ORDERED: ACETAMINOPHEN 500 MG TAB PO PRN (19:33)
[2018-03-22 19:59] VITALS: BMI 25.0
[2018-03-22] MEDS ORDERED: CEFEPIME 1 GM/VIAL IV SCH (21:00)
[2018-03-22] MEDS ORDERED: VANCOMYCIN 1.25 GM in NA CHLORIDE 0.9% 500 ML IVPB SCH (22:00)
[2018-03-22] MEDS: NA CHLORIDE 0.9% 1,000 ML IV SCH (22:25)
[2018-03-22] MEDS ORDERED: CEFEPIME 1 GM/100 ML BAG IV ONE (22:45)
[2018-03-22] MEDS ORDERED: VANCOMYCIN 1 GM/VIAL ONE (23:01)
[2018-03-22] MEDS ORDERED: VANCOMYCIN 500 MG/VIAL ONE (23:03)
[2018-03-22] MEDS ORDERED: NA CHLORIDE 0.9% 500 ML ONE (23:06)
[2018-03-23] MEDS: CODEINE 30MG/APAP 300MG TAB PO PRN ×4 (01:45→22:07)
[2018-03-23] MEDS: RISPERIDONE 0.25 MG TABLET PO SCH ×2 (01:45→20:36)
--- NOTE | 2018-03-23 02:56 | HP ---
Date of Admission: 03/15/2018 Primary Care Physician: Octaviano Matta MD. Code Status: Full. Chief Complaint: Shortness of breath. History Of Present Illness: The patient is an 82-year-old male with past medical history of coronary artery disease, dementia, osteoarthritis, anemia, recently at [facility] for right shoulder surgery and was transferred to rehab after his surgery. The patient has been in rehab since 03/16/2018 and was found to have some pneumonia and was treated with p.o. Levaquin and he was also receiving breathing treatments. The patient has been doing well with rehab. His shoulder is in an immobilizer and nonweightbearing. The patient, however, has been becoming more tachycardic, has been requiring oxygen. Normally, he does not have any oxygen at home. He does report some cough along with some sputum production. The patient did have some difficulty swallowing. A modified barium swallow study was done and was placed on thickened liquids. The patient has been having a difficult time clearing his secretions and has intermittent suctioning. The patient's symptoms are constant, moderate, progressively worsening. The patient was therefore referred for admission from rehab. Past Medical History: Coronary artery disease, status post CABG; dementia; osteoarthritis; anemia; history of peptic ulcer disease; hypertension; hyperlipidemia. Past Surgical History: CABG, left hemiarthroplasty of hip, and recent right shoulder surgery. Allergies: ACETAMINOPHEN , HYDROCODONE, MEPERIDINE, PENICILLIN, SULFA. Family History: Noncontributory in this 82-year-old male. Social History: The patient denies any illicit drug use, alcohol use, or tobacco use. The patient is , lives with his . Currently, has been in rehab for the past week. Review of Systems: Eleven-points systems reviewed, negative except as per HPI. Physical Examination: Vital Signs: Temperature 97.4, heart rate 96, blood pressure 149/66, respirations 16, O2 98% on 2 L via nasal cannula. General: Awake, alert, oriented x2, in some mild distress, elderly male, somewhat ill-appearing. HEENT: Normocephalic, atraumatic. PERRLA. EOMI. Moist mucous membranes. Oropharynx is clear. Poor dentition. Conjunctivae anicteric. Neck: Supple. No JVD. Trachea midline. CV: S1, S2. Regular rate and rhythm. Peripheral pulses are present bilaterally. No murmurs. Respiratory: Diminished breath sounds at the bases. Some rhonchi heard. No wheezing. No use of accessory muscles. No stridor. Gastrointestinal: Abdomen is soft, nontender, nondistended. Positive bowel sounds. No guarding or rigidity. No palpable masses. Extremities: No clubbing, cyanosis, or edema. No calf tenderness. Neuro: Cranial nerves 2 through 12 intact grossly. No focal neurological deficit. Unable to assess the right upper extremity strength due to recent surgery and the arm being immobilized. Speech is normal. Strength is 5/5 bilateral lower extremities and left upper extremity. Skin: No rashes or skin turgor. Laboratory Data: From 03/21/2018 sodium 137, potassium is 4, chloride 103, CO2 of 26, BUN 21, creatinine 1.10, glucose 134, albumin 2.9, calcium 9.3. WBC 8.5 , H and H 9 and 27, platelets 250. Urine culture shows Hafnia alvei. Sputum culture shows normal respiratory bogdan from 03/17/2018. Chest x-ray from 2017 shows few areas of subsegmental atelectasis without change from prior exam. Remainder of the lungs appeared clear of acute infiltrate. Assessment And Plan: An 82-year-old male with; 1. Healthcare-associated pneumonia. We will adjust antibiotics and place on broad-spectrum IV antibiotics. Repeat sputum cultures. Did not see any utility in obtaining blood cultures at this time as he has been on antibiotics for approximately 1 week. The patient does have a possible risk of aspiration and MRI today due to healthcare-associated pneumonia. The patient had a modified barium swallow study and was placed on modified diet including thickened liquids. We will repeat chest x-ray. Obtain CBC, BMP, and lactate and procalcitonin to rule out sepsis. The patient is tachycardic and requiring supplemental oxygen. 2. Hypoxia, on 2 L of oxygen via nasal cannula. Does not have any oxygen requirements at home. 3. Recent right shoulder surgery, currently in immobilizer. We will follow up with Orthopedic of [facility], nonweightbearing. 4. Essential hypertension, stable. Resume home medications. 5. Hyperlipidemia. 6. We will continue with statin. 7. Osteoarthritis, generalized. 8. Alzheimer's dementia, late onset, without behavioral disturbance. 9. Coronary artery disease, ione artery, ione heart without angina, status post CABG. 10. History of anemia, likely anemia of chronic disease. 11. Status post pacemaker. 12. Gastrointestinal and deep venous thrombosis prophylaxis. PPI and heparin. Plan: Admit the patient to [facility], place as observation. No medical power of title attorney or living will /BUCK Voice ID: [id number] MTDD
[2018-03-23 05:44] LABS: Absolute Monocytes 0.7 K/uL (0.1-1.3); Basophils % 0.4 % (0-1.3); Eosinophils % 1.1 % (0-4.4); Hematocrit 25.4 % (39.6-49.0); MCH 30.2 pg (27.0-35.0); MCV 93.5 fL (80-100); MPV 8.4 fL (7.6-11.3); Monocytes % 9.3 % (3.3-12.3); RBC Red Blood Cell Count 2.71 M/uL (4.33-5.43)
[2018-03-23 06:02] LABS: Potassium 4.1 mEq/L (3.6-5.0)
[2018-03-23] MEDS: NA CHLORIDE 0.9% 1,000 ML IV SCH ×2 (06:05→16:59)
[2018-03-23] MEDS ORDERED: ALBUTEROL 2.5 MG/3 ML NEB SOL NEB PRN (08:06)
--- NOTE | 2018-03-23 08:12 | RAD REPORT ---
EXAM DESCRIPTION: Reyna Pa And Lat (2 Views)03/23/2018 7:13 am CLINICAL HISTORY: Cough COMPARISON: March 22 FINDINGS: Mild bibasilar lung opacities are unchanged. The heart is borderline enlarged. Pacemaker leads are in place IMPRESSION: No change in mild bibasilar lung opacities
[2018-03-23] MEDS: CEFEPIME/SWI 1gm 1 GM/10 ML SYR IVP SCH ×2 (09:00→20:38)
[2018-03-23] MEDS ORDERED: FATTY ACIDS PO SCH (09:00)
[2018-03-23] MEDS ORDERED: HOME MED 1 EA UNK (Polyethylene Glycol 3350 [Miralax] 17 GM) PO SCH (09:00)
[2018-03-23] MEDS ORDERED: CEFEPIME/SWI 1gm 1 GM/10 ML SYR IV SCH (09:00)
[2018-03-23] MEDS ORDERED: OMEGA PO SCH (09:00)
[2018-03-23] MEDS: FERROUS SULFATE 325 MG TAB PO SCH (09:06)
[2018-03-23] MEDS: MAGNESIUM OXIDE 400 MG TAB PO SCH (09:06)
[2018-03-23] MEDS: DOCUSATE NA/SENNA CONC 1 TAB PO SCH ×2 (09:07→20:36)
[2018-03-23] MEDS: ASPIRIN 81 MG CHEWABLE TABLET PO SCH (09:07)
[2018-03-23] MEDS: DOCOSAHEXANOIC AC/EPA 1000 MG PO SCH ×3 (09:31→20:36)
[2018-03-23] MEDS: POLYETHYL GLY 3350 17 GM/DOSE PO SCH (09:31)
--- NOTE | 2018-03-23 14:54 | PN ---
Date of Progress Note: 03/23/2018 Subjective: The patient seen and examined, chart reviewed, and case discussed with RN. The patient wanted to go home. Still on supplemental oxygen, having cough with some sputum production. Review of Systems: Negative except as above. Medications: Reviewed. Physical Examination: Vital Signs: Temperature 97.9, heart rate 90, blood pressure 95/60, respirations 18, and O2 97% on 3 .5 L via nasal cannula. General: Awake, alert, oriented x2, elderly male, in no acute distress. Frail. CV: S1, S2. Peripheral pulses are present. Respiratory: Moving air well bilaterally. No wheezing. No stridor. No use of accessory muscles. Gastrointestinal: Abdomen is soft, nontender, nondistended. Positive bowel sounds. No guarding or rigidity. Extremities: No clubbing, cyanosis, or edema. Neurologic: Nonfocal. Laboratory Data: Sodium 139, potassium 4.1, chloride 107, CO2 of 26, BUN 22, creatinine 1.12, glucos e 103, and calcium 8.7. WBC 7.9, H and H 8.2 and 25.4, platelets 239. Chest x-ray shows no change i n mild bibasilar lung opacities, pacemaker in place. Assessment And Plan: 1.An 82-year-old male with healthcare-associated pneumonia. We will continue broad-spectrum IV anti biotics. Repeat sputum cultures. Pulmonology consultation. Repeat chest x-ray shows unchanged opac ities from previous x-ray. 2.Hypoxia, currently on 3.5 L of oxygen, likely secondary to above. 3.Recent right shoulder surgery. Currently in immobilizer. The patient will follow up outpatient [facility], nonweightbearing. 4.Essential hypertension, stable. 5.Hyperlipidemia, statin. 6.Osteoarthritis, generalized. 7.Alzheimer dementia, late onset, without behavioral disturbance. 8.Coronary artery disease, [place] artery and [place] heart without angina, status post coronary arter y bypass graft. Resume home medications. 9.History of anemia of chronic disease. Monitor H and H. 10.Status post pacemaker. 11.Gastrointestinal and deep venous thrombosis prophylaxis with PPI and Lovenox. Plan: Follow up with Pulmonary recommendations and cultures. SA/MODL Voice ID: [id number] Report ID: [id number]
[2018-03-23] MEDS ORDERED: HOME MED 1 EA UNK (Lovastatin [Lovastatin] 40 MG) PO SCH (21:00)
[2018-03-23] MEDS ORDERED: ATORVASTATIN 20 MG TAB PO SCH (21:00)
[2018-03-24] MEDS ORDERED: TRAZODONE 50 MG TABLET PO ONE (00:47)
[2018-03-24] MEDS: NA CHLORIDE 0.9% 1,000 ML IV SCH ×2 (01:09→12:00)
[2018-03-24] MEDS: CODEINE 30MG/APAP 300MG TAB PO PRN ×2 (03:59→09:20)
[2018-03-24] MEDS ORDERED: PANTOPRAZOLE 40MG TABLET PO SCH ×2 (07:30→08:00)
[2018-03-24] MEDS: CEFEPIME/SWI 1gm 1 GM/10 ML SYR IVP SCH (09:20)
[2018-03-24] MEDS: MAGNESIUM OXIDE 400 MG TAB PO SCH (09:20)
[2018-03-24] MEDS: DOCUSATE NA/SENNA CONC 1 TAB PO SCH (09:20)
[2018-03-24] MEDS: ASPIRIN 81 MG CHEWABLE TABLET PO SCH (09:20)
[2018-03-24] MEDS: FERROUS SULFATE 325 MG TAB PO SCH (09:20)
[2018-03-24] MEDS: POLYETHYL GLY 3350 17 GM/DOSE PO SCH (09:20)
[2018-03-24] MEDS: DOCOSAHEXANOIC AC/EPA 1000 MG PO SCH ×2 (09:21→14:52)
[2018-03-24 15:17] VITALS: O2SAT 96
[2018-03-24 17:46] VITALS: BP 129/62; TEMP 98.3
[2018-03-24] MEDS ORDERED: VANCOMYCIN 1.25 GM in NA CHLORIDE 0.9% 500 ML IVPB SCH (23:00)
--- NOTE | 2018-03-27 12:37 | DS ---
Date of Discharge: 03/24/2018 Consultants: Dr. Robin. Admitting Diagnoses: 1.Healthcare associated pneumonia. 2.Hypoxia. 3.Recent right shoulder surgery, immobilized. 4.Essential hypertension. 5.Hyperlipidemia. 6.Generalized osteoarthritis. 7.Alzheimer's dementia, late onset without behavioral disturbance. 8.Coronary artery disease [place] artery and [place] heart without angina, status post coronary artery bypass graft. 9.History of anemia, likely anemia of chronic disease. 10.Status post pacemaker. Discharge Diagnoses: 1.Healthcare associated pneumonia, improved. 2.Hypoxia, improved. 3.Recent right shoulder surgery in immobilizer, will follow up with orthopedics [facility] on Sunday. 4.Essential hypertension, stable. 5.Hyperlipidemia, statin. 6.Osteoarthritis, generalized. 7.Alzheimer dementia, late onset without behavioral disturbance. 8.Coronary artery disease [place] artery and [place] heart without angina, status post coronary artery bypass graft. 9.History of anemia, likely anemia of chronic disease. 10.Status post pacemaker. Hospital Course: The patient is an 82-year-old male who was transferred from rehab due to shortness of breath and pneumonia. The patient was started on broad-spectrum IV antibiotics as he was recently treated for pneumonia and was on Levaquin for the past week. His repeat chest x-ray did show opacit ies. Of note, the patient did have some dysphagia and has been on a modified diet after barium swall ow study was done. His white blood cell count was normal. His blood cultures were not obtained due to the patient being on antibiotics for approximately 1 week. He did have a urine culture that came back positive and had completed treatment for it. Sputum cultures were obtained, which showed 2+ yea st. The patient otherwise remained afebrile. He was on 2 L of oxygen. Pulmonology was consulted. The patient was able to ambulate well without dyspnea. He was otherwise doing well. The patient was then cleared for discharge and was sent home in stable condition. Activity: No strenuous activity. Diet: Modified diet with thickened liquids. Follow up with primary care physician in 2-3 days. Fol low up with orthopedic surgeon at [facility] on Sunday and return to ER for worsening condition. Follow u p with Pulmonology in 2 weeks, Dr. Robin. Medications: As per medication reconciliation list. Physical Examination: General: Awake, alert, oriented x3. No acute distress. CV: S1, S2. No murmurs. Respiratory: Moving air well. Diminished breath sounds at the bases. No wheezing. No stridor. No use of accessory muscles. Gastrointestinal: Abdomen is soft, nontender, nondistended. Positive bowel sounds. Extremities: No clubbing, cyanosis, edema. Neurologic: Nonfocal. Musculoskeletal: Right shoulder in immobilizer. Total time spent discharging patient was 35 minutes. /BUCK Voice ID: [id number] Report ID: [id number]
== END 2018-03-24 17:17 | disposition home or self-care (01) | DRG 195 ==
LOC: 2ND 17:39 → OBSVTOIN 03-24 14:46
PROVIDERS: ADMIT Family Medicine; ATTEND Family Medicine
DX: J18.9 Pneumonia, unspecified organism (principal); R09.02 Hypoxemia; Y95 Nosocomial condition; I25.10 Atherosclerotic heart disease of native coronary artery without angina pectoris; I10 Essential (primary) hypertension; E78.5 Hyperlipidemia, unspecified; M19.90 Unspecified osteoarthritis, unspecified site; G30.1 Alzheimer's disease with late onset; F02.80 Dementia in other diseases classified elsewhere, unspecified severity, without behavioral disturbance, psychotic disturbance, mood disturbance, and anxiety; Z95.0 Presence of cardiac pacemaker; Z95.1 Presence of aortocoronary bypass graft
CPT/HCPCS: 36415; 71046; 80048; 83735; 85025; 87070; 87205; 97163; G0378; J0692; J7030